=== PATIENT | female | born 1950 | race Caucasian/White ===

== ENCOUNTER → 2016-08-03 | Day surgery (SDC) | payer OTHER ==
[~2016-08-03] MED LIST: AMARYL4 M1 PO; ASPIRIN EC81 M1 PO; CLARITIN10 M1 PO; CRANBERRY400 M2; FLONASE ALLERG9.9 ML; GABAPENTIN300 M2 PO; HUMALOG100 UNIT/2; HYDROCHLOROTHIA25 M1 PO; JANUVIA100 M1 PO; LANTUS SOL100 UNIT/1 SC; LIPITOR80 M1 PO; LISINOPRIL40 M1 PO; MYRBETRIQ50 M1 PO; PLAVIX75 M1 PO; VITAMIN B-121000 MC3 PO
--- NOTE | 2016-08-03 15:36 | Operative Report ---
See Addendum Operative/Inv Procedure Report Surgery Date: 08/03/16 Name of Procedure: Excision skin malignancy face centimeters Full-thickness graft phase 25 cm Pre-Operative Diagnosis: bcc face Post-Operative Diagnosis: Same Estimated Blood Loss: less than 50ml, 50ml to 100ml Surgeon/Mini Shifter: DIDI HURD MD Anesthesia: moderate sedation Operative/Procedure Note Note: Visual skills risks of the procedure the alternatives risks and inspected our closure which to request surgical intervention to treat a basal cell carcinoma that has been neglected of the right has been neglected. He is proximally 4-5 cm in diameter. We talked about different visible scarring or possibly recurrence of infection bleeding pain and numbness need for additional surgeries based on final pathology reports will complete loss of the graft. Once room for consent was signed. Return to the operative supine on the table. Redundant placement anesthesia was given and once anesthesia was injected into the donor site of the right lateral neck site of excision. Full-thickness excision for approximate 6 cm and brought around the lesion
== END ==
LOC: STS 02:15
DX: C44.319 Basal cell carcinoma of skin of other parts of face (principal); E11.51 Type 2 diabetes mellitus with diabetic peripheral angiopathy without gangrene; Z79.4 Long term (current) use of insulin; Z89.421 Acquired absence of other right toe(s); I10 Essential (primary) hypertension; Z87.891 Personal history of nicotine dependence
CPT/HCPCS: 88305; J0690; J2250

== ENCOUNTER 2017-04-18 11:33 | Inpatient (IN) | payer OTHER ==
[~2017-04-18] VITALS: Ht 167.6 cm; Wt 86.2 kg
[~2017-04-18 11:33] MED LIST changes: -CRANBERRY400 M2; +CRANBERRY450 M2 PO; -FLONASE ALLERG9.9 ML; +FLONASE ALLERG9.9 ML NAS; -GABAPENTIN300 M2 PO; +GABAPENTIN600 M1 PO; -HUMALOG100 UNIT/2; +HUMALOG100 UNIT/2 SC
--- NOTE | 2017-04-18 11:44 | ED UPPER/LOWER EXTREMITY COMPL ---
History of Present Illness General Chief Complaint: General Adult Stated Complaint: BIBA INFECTION RT FOOT Source: patient Exam Limitations: no limitations Allergies Coded Allergies: No Known Allergies (08/02/16) PER PRE-OP ORDER SHEET. -CG 08/02/16 Reconcile Medications Aspirin (Ecotrin*) 81 MG TABLET.DR 1 TAB PO DAILY PVD (Reported) Atorvastatin Calcium (Lipitor) 80 MG TABLET 1 TAB PO DAILY CHOLESTEROL ( Reported) Clopidogrel Bisulfate (Plavix) 75 MG TABLET 1 TAB PO DAILY PVD (Reported) Cranberry Fruit (Cranberry) 450 MG TABLET 2 TAB PO BID SUPPLEMENT (Reported) Cyanocobalamin (Vitamin B-12) 1,000 MCG TABLET 1 TAB PO DAILY PROPHO ( Reported) Fluticasone Propionate (Flonase Allergy Relief) 50 MCG/ACTUATION SPRAY.SUSP 1 SPRAY KARI DAILY ALLERGIES (Reported) Gabapentin 600 MG TABLET 1 TAB PO TID NEUROPATHY (Reported) Hydrochlorothiazide 25 MG TABLET 1 TAB PO DAILY EDEMA (Reported) Insulin Lispro (Humalog) 100 UNIT/ML VIAL 10 UNIT SC TID DM II (Reported) Insulin-Lantus (Lantus) 100 UNIT/ML VIAL 43 U SC AT BEDTIME DM (Reported) Iron Carb,Gl/FA/B12/C/Docusate (Ferralet 90 Tablet) 90 MG-1 MG-12 MCG-120 MG-50 MG TABLET 1 TAB PO DAILY SUPPLEMENT (Reported) Lisinopril 40 MG TABLET 1 TAB PO DAILY HTN (Reported) Loratadine (Claritin) 10 MG TABLET 1 TAB PO DAILY ALLERGIES (Reported) Memantine HCl (Namenda) 10 MG TABLET 1 TAB PO QPM DEMENTIA (Reported) Mirabegron (Myrbetriq) 50 MG TAB.ER.24H 1 TAB PO DAILY BLADDER (Reported) Pantoprazole Sodium 20 MG TABLET.DR 1 TAB PO DAILY GI (Reported) Psyllium Husk (Metamucil) 3.4 GRAM/5.4 GRAM POWDER 1 PAC PO DAILY GI ( Reported) Saccharomyces Boulardii (Florastor) 250 MG CAPSULE 1 CAP PO DAILY GI ( Reported) Sitagliptin Phosphate (Januvia) 100 MG TABLET 1 TAB PO DAILY DM II (Reported) Tramadol HCl (Tramadol HCl ER) 100 MG TAB.ER.24H 1 TAB PO DAILY PAIN ( Reported) Triage Nurses Notes Reviewed? yes Onset: Gradual Severity: moderate Pain/Injury Location: Right: Foot. HPI: 66yo female with hx of DM, dementia, PAD, osteomyelitis BIBA from [facility] for further evaluation of right plantar foot wound. [facility] at [facility]. Patient recently on Vancomycin antibiotics for L extremity cellulitis. HPI is limited d/t patient's dementia. She cannot say why she came here to the hospital. At times patient is aware she is at [facility] however that time she cannot think of the name of her current location. Patient denies abdominal pain, vomiting, pain in lower extremities. She does report intermittent back pain. (Bea Auguste) Vital Signs & Intake/Output Vital Signs & Intake/Output Vital Signs Date Time Temp Pulse Resp B/P B/P Pulse O2 O2 Flow FiO2 Mean Ox Delivery Rate 04/19 1514 97.6 77 20 150/60 92 Room Air 04/19 0901 78 160/66 04/19 0728 99.5 78 18 160/66 96 Room Air 04/19 0215 99.0 90 20 142/70 95 Room Air 04/18 2300 73 140/62 04/18 2300 73 140/62 04/18 2249 98.8 75 19 140/62 93 Room Air 04/18 1912 99.5 85 18 140/60 95 Room Air ED Intake and Output 04/19 0000 04/18 1200 Intake Total 410 Output Total 350 Balance 60 Intake, IV 410 Intake, Oral 0 Number 0 Bowel Movements Output, Urine 350 Patient 190 lb 190 lb Weight Weight Estimated Estimated Measurement Method (Liat SUAREZ,Richard Byers) Past History Travel History Traveled to [place] past 21 day No Medical History Any Pertinent Medical History? see below for history Musculoskeletal: osteomyelitis Endocrine: diabetes Surgical History Surgical History: non-contributory Family History Hx Contributory? No (Bea Auguste) Review of Systems Review of Systems Constitutional: Reports: see HPI. EENTM: Reports: no symptoms. Respiratory: Reports: no symptoms. Cardiovascular: Reports: no symptoms. Gastrointestinal/Abdominal: Reports: no symptoms. Genitourinary: Reports: no symptoms. Musculoskeletal: Reports: see HPI. Skin: Reports: see HPI. Neurological/Psychological: Reports: see HPI. Hematologic/Endocrine: Reports: no symptoms. Immunological: Reports: no symptoms. All Other Systems: Reviewed and Negative (Bea Auguste) Physical Exam Physical Exam General Appearance: well developed/nourished, no apparent distress, alert, awake , obese Head: atraumatic, normal appearance Eyes: Bilateral: normal appearance. Ears, Nose, Throat: hearing grossly normal Neck: normal inspection, supple, full range of motion Cardiovascular/Respiratory: normal breath sounds, regular rate/rhythm, no respiratory distress Back: normal inspection, normal range of motion Leg Left: 3+ pitting edema with erythema to lower extermity Leg Right: 3+ pitting edema with erythema to lower extremity Knee Left: normal range of motion, normal inspection Knee Right: normal range of motion, normal inspection Foot Left: normal range of motion, swelling Foot Right: 3x3cm ulcer to plantar foot with surrounding erythema, nontender Neurologic/Tendon: normal motor functions, normal tendon functions Skin: see lower extremity exam above (Bhumi TORRES,Bea Benz) Progress Differential Diagnosis: cellulitis, DVT, fracture, septic arthritis, tendon injury, osteomyelitis Diagnostic Imaging: Viewed by Me: Radiology Read. Discussed w/RAD: Radiology Read. Radiology Impression: PATIENT: KHRIS ASHRAF PRESENT AGE: 66 PATIENT ACCOUNT NO: [id number] : 48 LOCATION: [facility] ORDERING PHYSICIAN: Bea TORRES SERVICE DATE: 04/18/17 EXAM TYPE: RAD - XRY-FOOT COMPLETE, R EXAMINATION: XR FOOT, RIGHT CLINICAL INFORMATION: Right plantar ulcer and delirium. Rule out osteomyelitis. COMPARISON: There are no prior studies for comparison. TECHNIQUE: AP, lateral, and oblique views of the right foot. FINDINGS: The soft tissue defect is noted in the plantar aspect of the midfoot at the level of the mid longitudinal plantar arch. Deep to the skin defect, there is cortical irregularity of the medial cuneiform. He adjacent metatarsals are unremarkable. There is absence of the distal aspect of the third digit from the metatarsal head distally.. Extensive generalized soft tissue swelling is present throughout the soft tissues of the right foot and ankle. IMPRESSION: Plantar soft tissue defect consistent with a plantar ulcer. Findings suspicious for associated osteomyelitis with irregularity of the cortical margin of the medial cuneiform. DICTATED BY: Livier Kwan MD DATE/TIME DICTATED:1419 ORDER PROCESSOR:CORY DATE/TIME TRANSCRIBED:04/18/171419 CONFIDENTIAL, DO NOT COPY WITHOUT APPROPRIATE AUTHORIZATION. <Electronically signed in Other Vendor System> SIGNED BY: Livier Kwan MD 04/18/17 142 CXR Impression: PATIENT: KHRIS ASHRAF PRESENT AGE: 66 PATIENT ACCOUNT NO: [id number] : 48 LOCATION: [facility] ORDERING PHYSICIAN: Bea TORRES SERVICE DATE: 04/18/17-1209 EXAM TYPE: RAD - XRY-CHEST XRAY, TWO VIEWS EXAMINATION: XR CHEST CLINICAL INFORMATION: Delirium. COMPARISON : There are no prior studies for comparison. TECHNIQUE: Frontal and lateral views of the chest were obtained. FINDINGS: The lungs are clear bilaterally. There is no evidence of pleural effusion or pneumothorax. The central pulmonary vasculature is prominent, suggestive of pulmonary vascular congestion. The cardiomediastinal silhouette is not enlarged. The bony structures and overlying soft tissues are unremarkable. IMPRESSION: No focal infiltrate, likely mild pulmonary vascular congestion. DICTATED BY: Livier Kwan MD DATE/TIME DICTATED:04/18/171418 ORDER PROCESSOR:CORY DATE/TIME TRANSCRIBED:1418 CONFIDENTIAL, DO NOT COPY WITHOUT APPROPRIATE AUTHORIZATION. < Electronically signed in Other Vendor System> SIGNED BY: Livier Kwan MD 04/18/171428 Initial ED EKG: sinus rhythm @84bpm, nonspecific ST changes (Bhumi TORRES,Bea Benz) Plan of Care: Orders Procedure Date/time Status Consistent Carbohydrate 1 04/20 B Active Consistent Carbohydrate 1 04/19 B Active MRI-RT FOOT W/O VILMA 04/19 1438 Active Castro, Insertion/Removal/Asses 04/19 1305 Complete Change service to 04/19 1211 Active Turn and Reposition 04/19 1115 Active Skin Integrity Protocol 04/19 1115 Active Skin/Pressure Ulcer Assess (Sk 04/19 1115 Active BLOOD CULTURE 04/19 1051 Active TOTAL IRON BINDING CAPACITY 04/19 0600 Complete PHOSPHORUS 04/19 0600 Complete MAGNESIUM 04/19 0600 Complete FERRITIN 04/19 0600 Complete SERUM IRON 04/19 0600 Complete CBC WITHOUT DIFFERENTIAL 04/19 0600 Complete CALCIUM 04/19 0600 Complete BASIC ELECTROLYTES PLUS BUN&CR 04/19 0600 Complete VANCOMYCIN (VANCOCIN) LEVEL 04/19 0440 Complete Vital Signs 04/19 0132 Active Teach/Educate 04/19 013 Active Pain Treatment and Response 04/19 013 Active Nutritional Intake, Monitor 04/19 131 Active Isolation 04/19 013 Active Intake & Output 04/19 013 Active Patient Care Conference 04/19 013 Active Activity/Ambulation 04/19 013 Active Lab Add-on Test 04/19 UNK Active PHYSICIAN CONSULT 04/19 UNK Active Lab Add-on Test 04/18 1857 Active Pathway - chart 04/18 1724 Active House Staff 04/18 1724 Active Patient Data 04/18 1724 Active Code Status 04/18 1724 Active EXTREMETIES OR SPEC 04/18 1654 Active ED Holding Orders 04/18 1624 Active Code Status 04/18 1624 Complete VANCOMYCIN (VANCOCIN) LEVEL 04/18 1441 Complete URINE LYTES, SPOT 04/18 1320 Complete Intake & Output 04/18 1243 Active Misc Message 04/18 UNK Active Admit to inpatient 04/18 UNK Active VTE Mechanical Prophylaxis 04/18 UNK Active Vital Signs 04/18 UNK Active FingerStick- Glucose 04/18 UNK Active Current Medications Sig/Terese Start time Last Medication Dose Stop Time Status Admin Insulin Human Regular 0 Q6 04/19 2359 CAN (NovoLIN R) Dextrose/Sodium 1,000 ML Q20H 04/19 2200 CAN Chloride (D5W-1/2 Normal Saline 1000ML) Insulin Detemir 18 UNITS BID 04/19 2200 AC (Levemir) Atorvastatin Calcium 80 MG 1700 04/19 1700 AC (Lipitor) Lisinopril 20 MG DAILY 04/19 1422 AC (Prinivil) Acetaminophen 650 MG Q4P PRN 04/19 1400 AC 04/19 (Tylenol) 1359 Hydrocodone Bitart/ 1 TAB Q6P PRN 04/19 1400 AC Acetaminophen (Vicodin) Aspirin 81 MG DAILY 04/19 1132 AC 04/19 (Aspirin) 1340 Clopidogrel Bisulfate 75 MG DAILY 04/19 1132 AC 04/19 (Plavix) 1340 Fluticasone 2 SPRAY DAILY 04/19 1000 AC 04/19 Propionate 0904 (Flonase) Vancomycin HCl 1,000 MG DAILY 04/19 1000 CAN Dextrose/Water 250 ML (D5W) Insulin Aspart 0 TIDAC 04/19 0800 AC 04/19 (NovoLOG) 1226 Omeprazole 20 MG DAILY AC 04/19 0700 AC 04/19 (Prilosec) 0608 Heparin Sodium 5,000 UNIT Q8 04/18 2199 AC 04/19 (Porcine) 1340 Memantine 10 MG QPM 04/18 2199 AC 04/18 (Namenda) 2259 Laboratory Tests 04/19/17 0440: Anion Gap 9, Estimated GFR 21 L, BUN/Creatinine Ratio 15.2, Calcium 8.6, Phosphorus 4.1, Magnesium 1.7, Iron 19 L, TIBC 241 L, Ferritin 157.0, CBC w Diff NO MAN DIFF REQ, RBC 2.99 L, MCV 83.2, MCH 26.9 L, MCHC 32.3 L, RDW 15.7 H, MPV 8.3, Gran % 78.5 H, Lymphocytes % 10.9 L, Monocytes % 7.5, Eosinophils % 2.7, Basophils % 0.4, Absolute Granulocytes 5.3, Absolute Lymphocytes 0.7 L, Absolute Monocytes 0.5, Absolute Eosinophils 0.2, Absolute Basophils 0, Random Vancomycin 20.5 Microbiology 04/19 0835 BLOOD: Blood Culture - RECD 04/18 1644 EXTREMITIE: Gross Specimen Examination - RES GRAM NEGATIVE RODS 04/18 1644 EXTREMITIE: Gram Stain - RES 3:23 PM - Sopke with Dr. Pham regarding this patient. He recommends holding antibiotics for bone biopsy/cultures in OR tonight. Given patient's other comorbidities he recommends general medicine admission to hospitalist team if possible. Patient has stable vital signs, she is in no acute distress. Dr. Josue discussed this patient with hospitalist Dr. Morrison regarding her general medicine admission for osteomyelitis (Bhumi TORRES,Bea Benz) Comments: 04/18/2017 4:24:36 PM patient's case discussed with me by BRIAN. Apparently patient was sent in by Dr. Luz for an evaluation of possible osteomyelitis of the foot. Prior to full medical evaluation in the emergency department the patient was taken to the OR for surgery. Per Dr. Luz the patient was to be admitted to the medical service. BRIAN AL has discussed this case with Dr. Brumfield who recommends that the patient be admitted to the medical service once she is out of the OR. Hospitalist construction grip at that time should be contacted. (Liat SUAREZ,Richard Byers) Departure Departure Disposition: STILL A PATIENT Condition: Stable Clinical Impression Primary Impression: Osteomyelitis Qualifiers: Osteomyelitis type: unspecified type Osteomyelitis location: foot Laterality: right Qualified Code: M86.9 - Osteomyelitis, unspecified Referrals: Patient Has No Primary Care Dr (PCP/Family) Departure Forms: Customer Survey General Discharge Information Admission Note Spoke With: Hayden Brumfield MD Documentation of Exam: Documentation of any treatments & extenuating circumstances including Concerns Regarding Discharge (functional status, medication knowledge or non-compliance, living conditions, etc.) that warrant an admission rather than observation: [ Osteomyelitis of right foot requiring biopsy and culture in OR with podiatry, IV antibiotics, follow-up with cultures, repeat labs, premature discharge would be medically unsafe] (Bhumi TORRES,Bea Benz) PA/MACHINED PARTS QUALITY INSPECTOR Co-Sign Statement Statement: ED Attending supervision documentation- [X] I saw and evaluated the patient. I have also reviewed all the pertinent lab results and diagnostic results. I agree with the findings and the plan of care as documented in the PA's/MACHINED PARTS QUALITY INSPECTOR's documentation. [] I have reviewed the ED Record and agree with the PA's/MACHINED PARTS QUALITY INSPECTOR's documentation. [] Additions or exceptions (if any) to the PAs/MACHINED PARTS QUALITY INSPECTOR's note and plan are summarized below: [] (Liat SUAREZ,Richard Byers)
[2017-04-18] MEDS ORDERED: PANTOPRAZOLE SO20 M1 PO (11:57)
[2017-04-18] MEDS ORDERED: FLORASTOR250 M1 PO (11:58)
[2017-04-18] MEDS ORDERED: FERRALET 90 TA1 EACH PO (12:00)
[2017-04-18] MEDS ORDERED: METAMUCIL660 GM PO (12:02)
[2017-04-18] MEDS ORDERED: NAMENDA10 M2 PO (12:05)
[2017-04-18] MEDS ORDERED: TRAMADOL HCL E100 MG PO (12:06)
--- NOTE | 2017-04-18 14:27 | RADIOLOGY REPORT ---
EXAMINATION: XR FOOT, RIGHT CLINICAL INFORMATION: Right plantar ulcer and delirium. Rule out osteomyelitis. COMPARISON: There are no prior studies for comparison. TECHNIQUE: AP, lateral, and oblique views of the right foot. FINDINGS: The soft tissue defect is noted in the plantar aspect of the midfoot at the level of the mid longitudinal plantar arch. Deep to the skin defect, there is cortical irregularity of the medial cuneiform. He adjacent metatarsals are unremarkable. There is absence of the distal aspect of the third digit from the metatarsal head distally.. Extensive generalized soft tissue swelling is present throughout the soft tissues of the right foot and ankle. IMPRESSION: Plantar soft tissue defect consistent with a plantar ulcer. Findings suspicious for associated osteomyelitis with irregularity of the cortical margin of the medial cuneiform.
--- NOTE | 2017-04-18 14:28 | RADIOLOGY REPORT ---
EXAMINATION: XR HUMERUS, RIGHT CLINICAL INFORMATION: PICC line placement assessment. COMPARISON: There are no prior studies. TECHNIQUE: AP views of the right humerus. FINDINGS: The bony structures are unremarkable. A PICC line is present extending along the margin of the right axilla and across the upper chest.. IMPRESSION: No acute bony findings. PICC line appears to be generally in anatomic position.
--- NOTE | 2017-04-18 14:29 | RADIOLOGY REPORT ---
EXAMINATION: XR CHEST CLINICAL INFORMATION: Delirium. COMPARISON: There are no prior studies for comparison. TECHNIQUE: Frontal and lateral views of the chest were obtained. FINDINGS: The lungs are clear bilaterally. There is no evidence of pleural effusion or pneumothorax. The central pulmonary vasculature is prominent, suggestive of pulmonary vascular congestion. The cardiomediastinal silhouette is not enlarged. The bony structures and overlying soft tissues are unremarkable. IMPRESSION: No focal infiltrate, likely mild pulmonary vascular congestion.
[2017-04-18 15:03] LABS: ABSOLUTE BASOPHIL COUNT 0.1 /CUMM (0.0-0.2); ABSOLUTE EOSINOPHIL COUNT 0.2 /CUMM (0.0-0.7); ABSOLUTE GRANULOCYTE CT 6.3 /CUMM (1.4-6.5); ABSOLUTE LYMPH COUNT 0.8 /CUMM (1.2-3.4); ABSOLUTE MONOCYTE COUNT 0.6 /CUMM (0.10-0.60); BASOPHIL % 1.4 % (0.0-2.0); EOSINOPHIL % 2.4 % (0-5); GRANULOCYTE % 78.5 % (42.2-75.2); HEMATOCRIT 27.4 % (37-47); MEAN CORPUSCULAR HGB CONC 32.6 G/DL (33.0-37.0); MEAN PLATELET VOLUME 8.3 FL (7.4-10.4); PLATELET COUNT 266 /CUMM (130-400); RBC DISTRIBUTION WIDTH 15.6 % (11.5-14.5); WHITE BLOOD CELL COUNT 8.1 /CUMM (4.8-10.8)
--- NOTE | 2017-04-18 15:29 | History & Physical Pre-Op ---
General Information and HPI MD Statement: I have seen and personally examined KHRIS ASHRAF and documented this H&P. The patient is a 66 year old F who presented with a patient stated chief complaint of painful infected ulceration in the plantar right midfoot[]. Source of Information: patient, Chelsy Camera, HCP Exam Limitations: unable to give history, confusion, dementia, poor historian History of Present Illness: This is a 66-year-old female with dementia who initially presented to my office in [place] this morning after being transported from an [facility] facility this morning for consultation on infected plantar midfoot wound on the right foot. The patient was accompanied by nursing professor, as well as some paperwork detailing her medications in recent history. She recently had a positive MRSA culture in this wound and was placed on intravenous vancomycin 1 g per day since then with very little improvement. The aide reported to me that she had had fevers intermittently for the past several days. The patient was examined, and found clinically to have clear and obvious Charcot neuroarthropathy of the right foot with midfoot collapse, large plantar ulceration, and multiple signs and symptoms of moderate to severe infection, and was referred to the emergency room immediately thereafter for further workup and treatment. The patient was transported from our office to [facility]'s emergency room via EMS. Given recently failed intravenous antibiotic therapy and multiple signs of necrotic tissue in the ulceration itself, the patient is being recommended for urgent debridement of this wound. Preoperative diagnosis: Charcot neuroarthropathy with plantar midfoot ulceration with associated necrotizing soft tissue infection as well as rule out osteomyelitis of the medial cuneiform, right foot. Planned procedure: Excisional debridement of all nonviable skin and soft tissue and bone of right foot Planned anesthesia: Monitored anesthesia care combined with an ankle block of 0.5% Marcaine plain Planned hemostasis: None Allergies/Medications Allergies: Coded Allergies: No Known Allergies (08/02/16) PER PRE-OP ORDER SHEET. -CG 08/02/16 Home Med list Aspirin (Ecotrin*) 81 MG TABLET.DR 1 TAB PO DAILY PVD (Reported) Atorvastatin Calcium (Lipitor) 80 MG TABLET 1 TAB PO DAILY CHOLESTEROL ( Reported) Clopidogrel Bisulfate (Plavix) 75 MG TABLET 1 TAB PO DAILY PVD (Reported) Cranberry Fruit (Cranberry) 450 MG TABLET 2 TAB PO BID SUPPLEMENT (Reported) Cyanocobalamin (Vitamin B-12) 1,000 MCG TABLET 1 TAB PO DAILY PROPHO ( Reported) Fluticasone Propionate (Flonase Allergy Relief) 50 MCG/ACTUATION SPRAY.SUSP 1 SPRAY KARI DAILY ALLERGIES (Reported) Gabapentin 600 MG TABLET 1 TAB PO TID NEUROPATHY (Reported) Hydrochlorothiazide 25 MG TABLET 1 TAB PO DAILY EDEMA (Reported) Insulin Lispro (Humalog) 100 UNIT/ML VIAL 10 UNIT SC TID DM II (Reported) Iron Carb,Gl/FA/B12/C/Docusate (Ferralet 90 Tablet) 90 MG-1 MG-12 MCG-120 MG-50 MG TABLET 1 TAB PO DAILY SUPPLEMENT (Reported) Lisinopril 40 MG TABLET 1 TAB PO DAILY HTN (Reported) Loratadine (Claritin) 10 MG TABLET 1 TAB PO DAILY ALLERGIES (Reported) Memantine HCl (Namenda) 10 MG TABLET 1 TAB PO QPM DEMENTIA (Reported) Mirabegron (Myrbetriq) 50 MG TAB.ER.24H 1 TAB PO DAILY BLADDER (Reported) Pantoprazole Sodium 20 MG TABLET.DR 1 TAB PO DAILY GI (Reported) Psyllium Husk (Metamucil) 3.4 GRAM/5.4 GRAM POWDER 1 PAC PO DAILY GI ( Reported) Saccharomyces Boulardii (Florastor) 250 MG CAPSULE 1 CAP PO DAILY GI ( Reported) Sitagliptin Phosphate (Januvia) 100 MG TABLET 1 TAB PO DAILY DM II (Reported) Tramadol HCl (Tramadol HCl ER) 100 MG TAB.ER.24H 1 TAB PO DAILY PAIN ( Reported) Compliance With Home Meds: GOOD Past History Medical History Neurological: dementia Cardiovascular: PAD DISTAL AORTIC ANGIO PSA STENT VALVAR CARCINOMA Renal: urinary incontinence Musculoskeletal: OSTEOMYELITIS CELLULITIS Psychiatric: anxiety, depression Endocrine: diabetes Surgical History Pertinent Surgical History: non-contributory Past Family/Social History Family History Relations & Conditions if any Family history was reviewed; no changes noted. Review of Systems Review of Systems: The patient is confused and unable to give a full review of systems upon my asking. The patient had reported that the right foot is in pain. Patient also reported that she had felt sick on and off for the past several days while at the senior care prior to seeing me. Exam & Diagnostic Data Last 24 Hrs of Vital Signs/I&O Vital Signs Date Time Temp Pulse Resp B/P B/P Pulse O2 O2 Flow FiO2 Mean Ox Delivery Rate 04/18 1409 97.9 84 18 187/77 98 Room Air 04/18 1142 97.9 86 18 178/74 98 Room Air Intake & Output 04/18 1600 04/18 0800 04/18 0000 Intake Total 0 Output Total Balance 0 Intake, Oral 0 Patient 190 lb Weight Weight Estimated Measurement Method Physical Exam: Focused physical exam The patient has weakly palpable pedal pulses bilaterally, and this is muffled by +3 nonpitting edema equal and bilateral with significant venous stasis dermatitis equal and bilateral of the tib-fib segment of the leg. Patient has a lack of hair growth dorsal and bilateral, atrophic skin dorsal and bilateral, capillary refill time is 3 seconds in all 9 of her remaining toes. The patient is status post left hallux agitation that is closed and healed, but there is a plantar ulceration measuring about 6 mm in diameter underneath the first metatarsal head. This has a fibrogranular base, hyperkeratotic rim, but no clinical signs of infection. The right foot has a significant mid tarsal joint collapse and Charcot neuroarthropathy deformity. There is a 7 cm x 6 cm x 1 cm necrotic, draining, malodorous plantar midfoot wound at the level of the midtarsal joint. There is also a 4 cm ovoid bulla over the posterior right heel. The surrounding skin on both of these lesions is macerated and there is significant focal edema and erythema about the midfoot circumferentially. The patient is insensate on gross exam, but on deep palpation of the plantar right mid foot on the patient does report that it is painful. Last 24 Hrs of Labs/Braulio: Laboratory Tests 04/18/17 1441: Sodium Pending, Potassium Pending, Chloride Pending, Carbon Dioxide Pending, Anion Gap Pending, BUN Pending, Creatinine Pending, BUN/Creatinine Ratio Pending , Glucose Pending, Lactic Acid Pending, Calcium Pending, Total Bilirubin Pending , AST Pending, ALT Pending, Alkaline Phosphatase Pending, Total Protein Pending, Albumin Pending, Globulin Pending, Albumin/Globulin Ratio Pending, CBC w Diff NO MAN DIFF REQ, RBC 3.30 L, MCV 83.0, MCH 27.0, MCHC 32.6 L, RDW 15.6 H, MPV 8.3, Gran % 78.5 H, Lymphocytes % 10.4 L, Monocytes % 7.3, Eosinophils % 2.4, Basophils % 1.4, Absolute Granulocytes 6.3, Absolute Lymphocytes 0.8 L, Absolute Monocytes 0.6, Absolute Eosinophils 0.2, Absolute Basophils 0.1 04/18/17 1320: Urine Color YEL, Urine Clarity CLDY H, Urine pH 6.0, Ur Specific [place] 1.020, Urine Protein TRACE H, Urine Ketones NEG, Urine Nitrite POS H, Urine Bilirubin NEG, Urine Urobilinogen 0.2, Ur Leukocyte Esterase LARGE H, Ur Microscopic SEDIMENT EXAMINED, Urine RBC RARE, Urine WBC > 75 H, Urine Bacteria FEW H, Micro UA Comment BUDDING YEAST H, Urine Hemoglobin MOD H, Urine Glucose NEG Microbiology 04/18 1444 BLOOD: Blood Culture - RECD 04/18 1320 URINE ROUT: Urine Culture - RECD 04/18 1238 NASOPHARYN: Influenza Virus A & B Rapid Smear - COMP 04/18 1209 BLOOD: Blood Culture - ORD Assessment/Plan Assessment/Plan: 66-year-old female with Charcot neuroarthropathy of the right foot, subacute necrotizing soft tissue infection of the right foot in the form of an infected plantar mid foot ulceration r/o osteomyelitis right medial cuneiform bone, and a small superficial neuropathic lesion on the left foot that is noninfected. The plan is as follows: The patient was seen and evaluated at bedside in the emergency room after being admitted to the internal medicine service. The patient's radiographs were evaluated and reviewed, and I agree with the findings. Given the patient's recent fevers, and the clinical and radiographic appearance of the midfoot, it is my recommendation the patient was taken for prompt debridement of this wound both to remove devitalized and necrotic tissue thereby stabilizing the patient's systemic reaction, and to biopsy these tissues for further diagnosis. I am recommending an infectious disease consult on this case. I'm recommending an endocrinology consult on this case. I'm recommending a CRP be drawn in the emergency room, and I recommended a patient have an A1c drawn to determined glycemic control, as this has a direct impact on my surgical outcome. The patient will be made nonweightbearing until further notice as the Charcot neuroarthropathy has made her right foot unstable to ambulate upon. The patient will be placed on empirical IV antibiotic therapy per the primary team. If the patient has a C-reactive protein over 15, I would also recommend clindamycin as a protein synthesis inhibitor. I explained all of the risks and benefits of the procedure to the patient's healthcare proxy, Chelsy Borja over the phone at the number [phone] as well as to the patient herself as best I could, and made no guarantees about their outcome. They are aware that we are removing necrotic tissue in the wound as a means of stabilizing her systemically, and that we are likely to have to perform multiple procedures during the admission to complete cleaning the infection out. They are aware that we are performing surgery on the patient in the presence of failed IV antibiotic therapy prior to admission at her senior care. I will follow up on the patient daily until she is discharged. As Ranked By This Provider Problem List: 1. Osteomyelitis
--- NOTE | 2017-04-18 17:03 | Operative Report ---
Operative/Inv Procedure Report Surgery Date: 04/18/17 Name of Procedure: Excisional debridement of all nonviable skin and soft tissue, right midfoot. Blunt removal of devitalized tissue from a stage II decubitus lesion of the right heel. Pre-Operative Diagnosis: Infected Charcot midfoot ulcer, right foot, rule out osteomyelitis. Stage II decubitus lesion right heel. Post-Operative Diagnosis: Infected Charcot midfoot ulcer, right foot, rule out osteomyelitis. Stage II decubitus lesion right heel. Estimated Blood Loss: scant Surgeon/Web Manager: Nickolas Uribe DPM Anesthesia: local monitored anesthesi Specimens: Soft tissue specimen sent for pathology to rule out necrotizing infection. Soft tissue culture and sensitivity, right foot. Microbiology: Soft tissue specimen, right midfoot Tourniquet: None Complications: None Condition: Stable Operative Indication: The patient presented to my office this morning with an infected midfoot ulcer with a substantial amount of necrotic tissue superficially in both changes proximal to this at the heel. The patient was taken for prompt debridement after failed IV antibiotic therapy at the custodial where she was currently residing and to rule out deeper involvement of the infection and/or spread through connective tissues and soft tissue planes. Operative/Procedure Note Note: After the patient was prepped and draped in usual sterile manner with Betadine from the distal tips of the toes pass the right ankle, attention was directed to the plantar aspect of the right midfoot where a 3.3 cm x 3 cm x 1.5 cm necrotic, malodorous, draining, boggy ulceration was found at the level of the midtarsal joints within the lateral column of the foot. Excisional debridement was carried out on this lesion down to deep fascia, but no bone was exposed. Once a uniform capillary oozing base was achieved, a crosshatch technique was used with a fresh #15 blade. The midfoot wound was then irrigated with 3 L of a combination of normal saline and triple antibiotic solution. Attention was then directed to the posterior right heel where a 3.5 cm x 3.1 cm bullous stage II decubitus lesion was identified. Using blunt technique the bullous changes were deroofed, and a stable base of dermis tissue was found. The midfoot wound was packed with half-inch iodoform packing and a wet-to-dry dressing using ample gauze, Kerlix, an EBD pads. The heel wound was dressed with a Betadine soaked gauze, multiple ABD pads, was incorporated into the Kerlix roll gauze area both were wrapped in a gentle 4 inch Rohit bandage. The patient was escorted to the postanesthesia care unit in no apparent distress, vital signs stable, neurovascular status intact to the operative foot. The patient is going to be admitted to the internal medicine team for multiple other comorbidities, including a UTI and a necrotic decubitus lesion of the left buttock that was discovered by the nursing team during survey. With optimized cultures taken, the patient may begin on IV empirical therapy. The dressing is to remain intact, the patient is to remain nonweightbearing at all times until further notice.
--- NOTE | 2017-04-18 17:17 | History & Physical ---
Johan Bhatia MD 04/18/17 1606: General Information and HPI MD Statement: I have seen and personally examined KHRIS ASHRAF and documented this H&P. The patient is a 66 year old F who presented with a patient stated chief complaint of right foot infection. Source of Information: patient, Chelsy Camera, HCP Exam Limitations: unable to give history, confusion, dementia, poor historian History of Present Illness: 66 year old female with past medical history significant for h/o vulvar carcinoma, depression/anxiety, diabetes, and h/o osteomyelitis, severe peripheral vascular disease with left foot cellulitis and right foot third digit amputation is being admitted for suspected osteomyelitis. The patient was taken to the operating room urgently after being sent in for suspected osteomyelitis and necrosis of a right plantar foot wound. Cultures were previously positive for MRSA according to obtained records and patient has been on intravenous vancomycin 1gram q24 hours. On initial evaluation in the ED, the patient was afebrile without leukocytosis. The patient was taken to the operating room emergently for debridement because the patient was noted to have spreading right foot infection with Charcot midfoot, and fevers despite intravenous antibiotics. The case was done under local with MAC on propofol infusion 125mcg/kg/min 150mg total, 700cc LR, and 0.6mg IV dilaudid given in PACU at the time of evaluation. Necrotic tissues and soft tissue culture sent to the lab. Allergies/Medications Allergies: Coded Allergies: No Known Allergies (08/02/16) PER PRE-OP ORDER SHEET. -CG 08/02/16 Compliance With Home Meds: GOOD Past History Travel History Traveled to [place] past 21 day No Medical History Neurological: dementia Cardiovascular: PAD DISTAL AORTIC ANGIO PSA STENT VALVAR CARCINOMA Renal: urinary incontinence Musculoskeletal: OSTEOMYELITIS CELLULITIS Psychiatric: anxiety, depression Endocrine: diabetes Surgical History Surgical History: non-contributory Review of Systems Review of Systems Constitutional: Reports: no symptoms. EENTM: Reports: no symptoms. Cardiovascular: Reports: edema, peripheral edema. Denies: chest pain, palpitations. Respiratory: Denies: cough, short of breath. GI: Reports: no symptoms. Genitourinary: Reports: no symptoms. Musculoskeletal: Reports: no symptoms. Skin: Reports: erythema. Neurological/Psychological: Reports: no symptoms. Hematologic/Endocrine: Reports: no symptoms. Immunologic/Allergic: Reports: no symptoms. All Other Systems: Reviewed and Negative Exam & Diagnostic Data Last 24 Hrs of Vital Signs/I&O Vital Signs Date Time Temp Pulse Resp B/P B/P Pulse O2 O2 Flow FiO2 Mean Ox Delivery Rate 04/18 1409 97.9 84 18 187/77 98 Room Air 04/18 1142 97.9 86 18 178/74 98 Room Air Intake & Output 04/18 1600 04/18 0800 04/18 0000 Intake Total 0 Output Total Balance 0 Intake, Oral 0 Patient 86.183 kg Weight Weight Estimated Measurement Method Physical Exam General Appearance Alert, Cooperative, No Acute Distress, oriented to self only, mild cognitive slowing, post anesthesia? Cardiovascular Regular Rate, Normal S1, Normal S2, No Murmurs Lungs Clear to Auscultation, Normal Air Movement Abdomen Normal Bowel Sounds, Soft, No Tenderness, No Masses, obese, + hwang Extremities significant bilateral edema with erythema, post surgical dressing not taken down Last 24 Hrs of Labs/Braulio: Laboratory Tests 04/18/17 1509: Lactic Acid Cancelled 04/18/17 1441: Anion Gap 13, Estimated GFR 21 L, BUN/Creatinine Ratio 16.1, Glucose 174 H, Lactic Acid 0.8, Calcium 9.2, Total Bilirubin 0.3, AST 15, ALT 14, Alkaline Phosphatase 81, Total Protein 6.3, Albumin 3.2 L, Globulin 3.1, Albumin/ Globulin Ratio 1.0 L, CBC w Diff NO MAN DIFF REQ, RBC 3.30 L, MCV 83.0, MCH 27.0, MCHC 32.6 L, RDW 15.6 H, MPV 8.3, Gran % 78.5 H, Lymphocytes % 10.4 L, Monocytes % 7.3, Eosinophils % 2.4, Basophils % 1.4, Absolute Granulocytes 6.3, Absolute Lymphocytes 0.8 L, Absolute Monocytes 0.6, Absolute Eosinophils 0.2, Absolute Basophils 0.1, Random Vancomycin 24.8 04/18/17 1320: Urine Color YEL, Urine Clarity CLDY H, Urine pH 6.0, Ur Specific [place] 1.020, Urine Protein TRACE H, Urine Ketones NEG, Urine Nitrite POS H, Urine Bilirubin NEG, Urine Urobilinogen 0.2, Ur Leukocyte Esterase LARGE H, Ur Microscopic SEDIMENT EXAMINED, Urine RBC RARE, Urine WBC > 75 H, Urine Bacteria FEW H, Micro UA Comment [place] H, Urine Hemoglobin MOD H, Urine Glucose NEG Microbiology 04/18 1645 EXTREMITIE: Gross Specimen Examination - RECD 04/18 1645 EXTREMITIE: Gram Stain - RECD 04/18 1444 BLOOD: Blood Culture - RECD 04/18 1320 URINE ROUT: Urine Culture - RECD 04/18 1238 NASOPHARYN: Influenza Virus A & B Rapid Smear - COMP 04/18 1209 BLOOD: Blood Culture - ORD Diagnostic Data EKG Results sinus rhythm, no ischemic ST T wave changes CXR Results Right PICC, no acute cardiopulmonary process Other Results right foot x-ray soft tissue defect is noted in the plantar aspect of the midfoot at the level of the mid longitudinal plantar arch. Deep to the skin defect, there is cortical irregularity of the medial cuneiform. Assessment/Plan Assessment: 66 year old female with past medical history significant for h/o vulvar carcinoma, depression/anxiety, diabetes, and h/o osteomyelitis, severe peripheral vascular disease with left foot cellulitis and right foot third digit amputation is being admitted for suspected osteomyelitis and emergent wound debridement. Osteomyelitis: Afebrile without leukocytosis on arrival s/p debridement in the operating room previously on vancomycin 1gram q24 hours Check random vancomycin level Follow up cultures Follow up podiatry recommendations Consider infectious disease consultation in the morning Nonweightbearing, right heel ulcer DM: Accuchecks TIDAC/HS Novolog sliding scale insulin Levemir 18 units BID, was previously on 43 units lantus qhs HTN: Hold HCTZ and ACEi for now with renal insufficiency Will start norvasc 5mg and hydralazine as needed until more history obtained Renal insufficiency-unclear if BHAVIN vs CKD PSA stent/PVD: Pseudoaneurysm stent? uncertain patient's vascular surgery history Currently aspirin and plavix on hold, pending discussion of anticoagulation with podiatry Continue high dose statin therapy Gluteal decubitus ulcer: Wound care consultation Dementia: Continue namenda Confused and cognitive slowing noted after anesthesia Hold narcotics, tramadol, and gabapentin for now Diabetic diet DVT ppx-heparin 5000units subcutaneous Full code As Ranked By This Provider Problem List: 1. Osteomyelitis Core Measures/Misc (11/11) Acute Coronary Syndrome ACS Diagnosis: No Congestive Heart Failure Congestive Heart Failure Diagnosis No Cerebrovascular Accident CVA/TIA Diagnosis: No VTE (View Protocol) VTE Risk Factors Age>40 No Mechanical VTE Prophylaxis d/t Physical Contraindication No VTE Pharm Prophylaxis d/t NA PharmProphylax ordered Sepsis (View protocol) Sepsis Present: Kel Cisneros MDdavidpaul 04/18/17 1738: Attending MD Review Statement Attending Statement Attending MD Statement: examined this patient, discuss w/resident/PA/ADMINISTRATIVE JOB TITLES, agreed w/resident/PA/ADMINISTRATIVE JOB TITLES, reviewed EMR data (avail), discussed with nursing, amended to note Attending Assessment/Plan: No detailed records were present with the patient. She is not the best of historians. Patient is a 66-year-old female with medical history significant for insulin-dependent diabetes mellitus, hypertension, vulvar cancer, admission for sepsis in the past, Charcot's foot, peripheral vascular disease, history of diarrhea. Currently a resident a [facility] facility. She was recently admitted to [facility]. She was discharged to the [facility] facility with a PICC line on IV vancomycin. Patient was sent from the facility to the podiatry office for evaluation. Apparently of the facility she had worsening of her right foot ulceration. She was evaluated by Dr. Thomas of the plastic surgery service while at the facility. Due to nonimprovement she was sent to the podiatry office today. She was sent from the podiatry office to the emergency room for further evaluation and was promptly taken to the OR for wound debridement. X-ray preoperatively showed plantar soft tissue deficit consistent with a plantar ulcer and findings suspicious of associated osteomyelitis on the medial aspect of the foot. The podiatry reports that debridement was done primarily on the lateral aspect and no evidence of infected bone was noted intraoperative. She did have extensive evidence of Charcot foot. I did evaluate the patient postoperatively in the postanesthesia care unit. I found her alert and oriented 3. Conversant appropriately. Not in any acute distress. She was afebrile and hemodynamically stable. She had no jugular venous distention. Heart sounds are regular. Lungs are clear to auscultation bilaterally. She had no abdominal tenderness. Bowel sounds are normal. She had bilateral lower extremity swelling. She had a Rohit wrap and overboard feet. According to the human resources coordinator she had a 3 x 3 cm ulceration on the plantar aspect of the right foot. On the left foot she has small superficial ulceration. Also per the human resources coordinator in the OR she was noted to have a left decubitus ulceration. Problems: 1. Osteomyelitis of the right foot; query chronicity with superimposed necrotic soft tissue. 2. Diabetes mellitus. 3. Hypertension. 4. Decubitus ulcer. 5. Peripheral arterial disease. 6. Anemia 7. Renal Insufficency: ? Chronicity Plan: -Admit to inpatient General medical service. -Continue antibiotic therapy with IV vancomycin. -Obtain records from [facility] to determine if patient had positive blood or bone cultures. Patient is currently afebrile, hemodynamically stable with no leukocytosis. I would strongly recommend holding off any new antibiotics for now pending records from [facility] and evaluation by the ID service for antibiotic stewardship. -Place on insulin. Currently there is no indication for obtaining an endocrinology consultation unless her blood glucose extremely difficult to control while here in the hospital. Again I would recommend evaluating her records from [facility]. -Monitor hemoglobin levels daily. She does follow-up with the gastroenterology service at [facility]. -DVT prophylaxis with heparin subcu. Lizbeth SUAREZ,[employer] 04/18/17 6829: General Information and HPI Allergies/Medications Home Med list Aspirin (Ecotrin*) 81 MG TABLET.DR 1 TAB PO DAILY PVD (Reported) Atorvastatin Calcium (Lipitor) 80 MG TABLET 1 TAB PO DAILY CHOLESTEROL ( Reported) Clopidogrel Bisulfate (Plavix) 75 MG TABLET 1 TAB PO DAILY PVD (Reported) Cranberry Fruit (Cranberry) 450 MG TABLET 2 TAB PO BID SUPPLEMENT (Reported) Cyanocobalamin (Vitamin B-12) 1,000 MCG TABLET 1 TAB PO DAILY PROPHO ( Reported) Fluticasone Propionate (Flonase Allergy Relief) 50 MCG/ACTUATION SPRAY.SUSP 1 SPRAY KARI DAILY ALLERGIES (Reported) Gabapentin 600 MG TABLET 1 TAB PO TID NEUROPATHY (Reported) Hydrochlorothiazide 25 MG TABLET 1 TAB PO DAILY EDEMA (Reported) Insulin Lispro (Humalog) 100 UNIT/ML VIAL 10 UNIT SC TID DM II (Reported) Insulin-Lantus (Lantus) 100 UNIT/ML VIAL 43 U SC AT BEDTIME DM (Reported) Iron Carb,Gl/FA/B12/C/Docusate (Ferralet 90 Tablet) 90 MG-1 MG-12 MCG-120 MG-50 MG TABLET 1 TAB PO DAILY SUPPLEMENT (Reported) Lisinopril 40 MG TABLET 1 TAB PO DAILY HTN (Reported) Loratadine (Claritin) 10 MG TABLET 1 TAB PO DAILY ALLERGIES (Reported) Memantine HCl (Namenda) 10 MG TABLET 1 TAB PO QPM DEMENTIA (Reported) Mirabegron (Myrbetriq) 50 MG TAB.ER.24H 1 TAB PO DAILY BLADDER (Reported) Pantoprazole Sodium 20 MG TABLET.DR 1 TAB PO DAILY GI (Reported) Psyllium Husk (Metamucil) 3.4 GRAM/5.4 GRAM POWDER 1 PAC PO DAILY GI ( Reported) Saccharomyces Boulardii (Florastor) 250 MG CAPSULE 1 CAP PO DAILY GI ( Reported) Sitagliptin Phosphate (Januvia) 100 MG TABLET 1 TAB PO DAILY DM II (Reported) Tramadol HCl (Tramadol HCl ER) 100 MG TAB.ER.24H 1 TAB PO DAILY PAIN ( Reported) Resident Review Statement Resident Statement: examined this patient, discussed with production internship, agreed with production internship Other Findings: 66 year old female with extensive PMH including but not limited to diabetes, osteomyelitis, severe peripheral vascular disease with left foot cellulitis and right foot third digit amputation is being admitted for suspected osteomyelitis. The patient was sent to the OR room from ER for suspected osteomyelitis and necrosis. She had a history of culture positive for MRSA for which she was on intravenous vancomycin 1gram q24 hours. Given that the patient did not improve and continued to have intermittent fever while on IV antibiotic she was send urgently to the ED. On initial evaluation in the ED, the patient was afebrile without leukocytosis. Necrotic tissues and soft tissue culture sent to the lab. Assessment and plan The patient was found to have a dirty urine, however she denies any urinary symptoms. The patient was found to have elevated creatinine, it's not clear if this is BHAVIN or CKD. The patient is status post debridement and soft tissue culture. The patient will most likely require another I&D within the next 2 days as per podiatry. #Suspected osteomyelitis failing outpatient IV vancomycin * We will admit to general medicine floor * We repeat vancomycin level given the limited creatinine, those Vanco accordingly. * Pain management as necessary * We will follow podiatry recommendation * We we will consult infectious disease in the morning #Mild confusion post procedure * Most likely related to the anesthesia * We will hold AMALGAMATOR depressant medication * We will reassess in the morning #Elevated creatinine * It's not clear if this is BHAVIN or CKD * We will hold lisinopril and all nephrotoxic medications * We'll repeat vancomycin level * Patient received 1 bag of fluid, we will repeat BEP in the morning and reassess need for fluid #Decubitus ulcer. * We will consult wound in the morning #Diabetes mellitus, Hypertension, PAD * We will start diabetic diet * We will start insulin sliding scale * We will hold lisinopril and hydrochlorothiazide * We will manage blood pressure with amlodipine or hydralazine as necessary * We'll continue the rest of home medication except nephrotoxic medications * We will start aspirin and Plavix in the morning Diabetic diet DVT PPX with pharmacological Full code
[2017-04-18 19:12] VITALS: BP 140/60
[2017-04-18] MEDS ORDERED: LANTUS100 UNIT/1 SC (22:32)
[2017-04-18 22:49] VITALS: BP 140/62
[2017-04-19 02:15] VITALS: BP 142/70
[2017-04-19 05:24] LABS: ABSOLUTE BASOPHIL COUNT 0 /CUMM (0.0-0.2); ABSOLUTE EOSINOPHIL COUNT 0.2 /CUMM (0.0-0.7); ABSOLUTE GRANULOCYTE CT 5.3 /CUMM (1.4-6.5); ABSOLUTE LYMPH COUNT 0.7 /CUMM (1.2-3.4); ABSOLUTE MONOCYTE COUNT 0.5 /CUMM (0.10-0.60); BASOPHIL % 0.4 % (0.0-2.0); EOSINOPHIL % 2.7 % (0-5); GRANULOCYTE % 78.5 % (42.2-75.2); HEMATOCRIT 24.9 % (37-47); MEAN CORPUSCULAR HGB 26.9 PG (27.0-31.0); MEAN CORPUSCULAR HGB CONC 32.3 G/DL (33.0-37.0); MEAN CORPUSCULAR VOLUME 83.2 FL (81.0-99.0); MEAN PLATELET VOLUME 8.3 FL (7.4-10.4); PLATELET COUNT 236 /CUMM (130-400); RBC DISTRIBUTION WIDTH 15.7 % (11.5-14.5); RED BLOOD CELL CT 2.99 /CUMM (4.20-5.40); WHITE BLOOD CELL COUNT 6.7 /CUMM (4.8-10.8)
--- NOTE | 2017-04-19 07:25 | PN- Housestaff ---
Johan Bhatia MD 04/19/17 0725: Subjective Follow-up For: Wound infection Subjective: patient remains oriented only to self afebrile, complaining of mild bilateral foot pain, worse with dressing changes +GNR in OR culture Review of Systems Constitutional: Reports: see HPI. Objective Last 24 Hrs of Vital Signs/I&O Vital Signs Date Time Temp Pulse Resp B/P B/P Pulse O2 O2 Flow FiO2 Mean Ox Delivery Rate 04/19 1514 97.6 77 20 150/60 92 Room Air 04/19 0901 78 160/66 04/19 0728 99.5 78 18 160/66 96 Room Air 04/19 0215 99.0 90 20 142/70 95 Room Air 04/18 2300 73 140/62 04/18 2300 73 140/62 04/18 2249 98.8 75 19 140/62 93 Room Air 04/18 1912 99.5 85 18 140/60 95 Room Air Intake & Output 04/19 1600 04/19 0800 04/19 0000 Intake Total 410 410 Output Total 980 1999 350 Balance -980 -1590 60 Intake, IV 300 410 Intake, Oral 110 0 Number 1 0 Bowel Movements Output, Urine 980 1999 350 Patient 86.2 kg Weight Weight Estimated Measurement Method Physical Exam General Appearance: Alert, Cooperative, No Acute Distress Cardiovascular: Regular Rate, Normal S1, Normal S2, No Murmurs Lungs: Clear to Auscultation, Normal Air Movement Abdomen: Normal Bowel Sounds, Soft, No Tenderness, No Masses, +hwang, Extremities: No Clubbing, No Cyanosis, +bilateral lower extremity edema and cellulitis, and foot ulcers, left gluteal ulcer Current Medications: Current Medications Sig/Terese Start time Last Medication Dose Route Stop Time Status Admin Acetaminophen 650 MG Q4P PRN 04/19 1400 AC 04/19 PO 1359 Acetaminophen 650 MG ONCE ONE 04/19 0500 DC 04/19 PO 04/19 0501 0452 Amlodipine Besylate 5 MG DAILY 04/18 2105 DC 04/19 PO 0901 Aspirin 81 MG DAILY 04/19 1132 AC 04/19 PO 1340 Atorvastatin Calcium 80 MG 1700 04/19 1700 AC 04/19 PO 1649 Clopidogrel Bisulfate 75 MG DAILY 04/19 1132 AC 04/19 PO 1340 Dextrose/Sodium 1,000 ML Q20H 04/19 2200 CAN Chloride IV Fluticasone 2 SPRAY DAILY 04/19 1000 AC 04/19 Propionate KARI 0904 Heparin Sodium 5,000 UNIT Q8 04/18 2200 AC 04/19 (Porcine) SC 1340 Hydralazine HCl 25 MG ONCE ONE 04/18 2114 DC 04/18 PO 04/18 2115 2300 Hydrocodone Bitart/ 1 TAB Q6P PRN 04/19 1400 AC Acetaminophen PO Insulin Aspart 0 TIDAC 04/19 0800 AC 04/19 SC 1651 Insulin Detemir 18 UNITS BID 04/19 2200 AC SC Insulin Detemir 18 UNITS BID 04/18 220 DC 04/19 SC 0925 Insulin Human Regular 0 Q6 04/19 2359 CAN SC Lactated Ringer's 1,000 ML Q10H 04/18 2114 DC 04/18 IV 04/19 0714 2114 Lisinopril 20 MG DAILY 04/19 1422 AC 04/19 PO 1649 Lisinopril 20 MG DAILY 04/18 2049 DC PO Memantine 10 MG QPM 04/18 2199 AC 04/18 PO 2259 Omeprazole 20 MG DAILY AC 04/19 0700 AC 04/19 PO 0608 Vancomycin HCl 1,000 MG DAILY 04/19 1000 CAN Dextrose/Water 250 ML IV Last 24 Hrs of Lab/Braulio Results Last 24 Hrs of Labs/Mics: Laboratory Tests 04/19/17 0440: Anion Gap 9, Estimated GFR 21 L, BUN/Creatinine Ratio 15.2, Calcium 8.6, Phosphorus 4.1, Magnesium 1.7, Iron 19 L, TIBC 241 L, Ferritin 157.0, CBC w Diff NO MAN DIFF REQ, RBC 2.99 L, MCV 83.2, MCH 26.9 L, MCHC 32.3 L, RDW 15.7 H, MPV 8.3, Gran % 78.5 H, Lymphocytes % 10.9 L, Monocytes % 7.5, Eosinophils % 2.7, Basophils % 0.4, Absolute Granulocytes 5.3, Absolute Lymphocytes 0.7 L, Absolute Monocytes 0.5, Absolute Eosinophils 0.2, Absolute Basophils 0, Random Vancomycin 20.5 Microbiology 04/19 0835 BLOOD: Blood Culture - RECD Assessment/Plan Assessment: 66 year old female with past medical history significant for h/o vulvar carcinoma, depression/anxiety, diabetes, and h/o osteomyelitis, severe peripheral vascular disease with left foot cellulitis and right foot third digit amputation is being admitted for suspected osteomyelitis and emergent wound debridement. Osteomyelitis: Afebrile without leukocytosis on arrival s/p debridement in the operating room previously on vancomycin 1gram q24 hours, Random vancomycin >20 held for now Cultures +GNR Follow up podiatry recommendations, plan for repeat debridement, possible bone biopsy for osteomyelitis Infectious disease consultation, appreciating recommendations, monitoring off antibiotics Nonweightbearing, right heel ulcer Restarted tylenol and vicodin for analgesia prn DM: Accuchecks TIDAC/HS Novolog sliding scale insulin Levemir 18 units BID, was previously on 43 units lantus qhs HTN: Hold HCTZ and ACEi for now with renal insufficiency Can restart ACEi, FeNA high likely chronic renal disease Renal insufficiency-unclear if BHAVIN vs CKD Records pending from [place], faxed request form PSA stent/PVD: Pseudoaneurysm stent? uncertain patient's vascular surgery history Continue aspirin/plavix, discussed with podiatry, ok with further debridement on DAPT Continue high dose statin therapy Gluteal decubitus ulcer: Wound care consultation Dementia: Continue namenda Confused and cognitive slowing noted after anesthesia Hold narcotics, tramadol, and gabapentin for now Diabetic diet DVT ppx-heparin 5000units subcutaneous Full code Problem List: 1. Osteomyelitis Pain Ratin Pain Location: bilateral feet Pain Goal: Pain 4 or less Pain Plan: prn Tomorrow's Labs & Rationales: cbc, bep Jerome SUAREZ,[facility] 04/19/17 1602: Attending MD Review Statement Attending Statement Attending MD Statement: examined this patient, discuss w/resident/PA/CONFERENCE SERVICES MANAGER, agreed w/resident/PA/CONFERENCE SERVICES MANAGER, reviewed EMR data (avail) Attending Assessment/Plan: 66F PMH depression/anxiety, diabetes, and h/o osteomyelitis, severe peripheral vascular disease with left foot cellulitis and right foot third digit amputation is being admitted for suspected osteomyelitis, went to OR on 04/18 for debridement, now doing well and hemodynamically stable with normal WBC and afebrile. Plan - Continue on general medicine - Follow ID and podiatry recommendations - Off antibiotics for now - Follow cultures - Will return to OR on 04/23 - Continue home medications - DVT PPx
[2017-04-19 07:28] VITALS: BP 160/66
--- NOTE | 2017-04-19 14:34 | Cons- Infect Disease ---
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 On admission she was afebrile. Laboratory data revealed a white blood cell count of 8000, BUN/creatinine 37 and 2.3, with normal liver enzymes. A Vancomycin random level was 25. Urinalysis greater than 75 WBCs, with budding yeast. Chest x-ray was negative. X-ray of the right foot revealed a plantar soft tissue defect with irregularity of the cortical margin of the medial cuneiform suggestive of osteomyelitis. She was taken to the OR for an excisional debridement of all nonviable skin and soft tissue of the right midfoot, with no bone exposed, and blunt removal of devitalized tissue from a stage II right heel ulcer. She was followed off antibiotics and has remained afebrile. At present she does note some discomfort in both lower extremities. Allergies/Medications Allergies: Coded Allergies: No Known Allergies (08/02/16) PER PRE-OP ORDER SHEET. - 08/02/16 Home Med List: Aspirin (Ecotrin*) 81 MG TABLET.DR 1 TAB PO DAILY PVD (Reported) Atorvastatin Calcium (Lipitor) 80 MG TABLET 1 TAB PO DAILY CHOLESTEROL ( Reported) Clopidogrel Bisulfate (Plavix) 75 MG TABLET 1 TAB PO DAILY PVD (Reported) Cranberry Fruit (Cranberry) 450 MG TABLET 2 TAB PO BID SUPPLEMENT (Reported) Cyanocobalamin (Vitamin B-12) 1,000 MCG TABLET 1 TAB PO DAILY PROPHO ( Reported) Fluticasone Propionate (Flonase Allergy Relief) 50 MCG/ACTUATION SPRAY.SUSP 1 SPRAY KARI DAILY ALLERGIES (Reported) Gabapentin 600 MG TABLET 1 TAB PO TID NEUROPATHY (Reported) Hydrochlorothiazide 25 MG TABLET 1 TAB PO DAILY EDEMA (Reported) Insulin Lispro (Humalog) 100 UNIT/ML VIAL 10 UNIT SC TID DM II (Reported) Insulin-Lantus (Lantus) 100 UNIT/ML VIAL 43 U SC AT BEDTIME DM (Reported) Iron Carb,Gl/FA/B12/C/Docusate (Ferralet 90 Tablet) 90 MG-1 MG-12 MCG-120 MG-50 MG TABLET 1 TAB PO DAILY SUPPLEMENT (Reported) Lisinopril 40 MG TABLET 1 TAB PO DAILY HTN (Reported) Loratadine (Claritin) 10 MG TABLET 1 TAB PO DAILY ALLERGIES (Reported) Memantine HCl (Namenda) 10 MG TABLET 1 TAB PO QPM DEMENTIA (Reported) Mirabegron (Myrbetriq) 50 MG TAB.ER.24H 1 TAB PO DAILY BLADDER (Reported) Pantoprazole Sodium 20 MG TABLET.DR 1 TAB PO DAILY GI (Reported) Psyllium Husk (Metamucil) 3.4 GRAM/5.4 GRAM POWDER 1 PAC PO DAILY GI ( Reported) Saccharomyces Boulardii (Florastor) 250 MG CAPSULE 1 CAP PO DAILY GI ( Reported) Sitagliptin Phosphate (Januvia) 100 MG TABLET 1 TAB PO DAILY DM II (Reported) Tramadol HCl (Tramadol HCl ER) 100 MG TAB.ER.24H 1 TAB PO DAILY PAIN ( Reported) Past History Travel History Traveled to [place] past 21 day No Medical History Neurological: dementia Cardiovascular: PAD DISTAL AORTIC ANGIO PSA STENT Renal: urinary incontinence Psychiatric: anxiety, depression Endocrine: diabetes Cancer(s): vulvar carcinoma History of MRSA: Yes History of VRE: No History of CDIFF: No Isolation History: Contact Surgical History Surgical History: non-contributory Psychosocial History Where [facility] You Live[facility] Smoking Status: Unknown If Ever Smoked Review of Systems Review of Systems All Other Systems: Reviewed and Negative Exam & Diagnostic Data Last 24 Hrs of Vital Signs/I&O Vital Signs Date Time Temp Pulse Resp B/P B/P Pulse O2 O2 Flow FiO2 Mean Ox Delivery Rate 04/19 0901 78 160/66 04/19 0728 99.5 78 18 160/66 96 Room Air 04/19 0215 99.0 90 20 142/70 95 Room Air 04/18 2300 73 140/62 04/18 2300 73 140/62 04/18 2249 98.8 75 19 140/62 93 Room Air 04/18 1912 99.5 85 18 140/60 95 Room Air Intake & Output 04/19 1600 04/19 0800 04/19 0000 Intake Total 410 410 Output Total 2000 350 Balance -1590 60 Intake, IV 300 410 Intake, Oral 110 0 Number 0 Bowel Movements Output, Urine 2000 350 Patient 190 lb Weight Weight Estimated Measurement Method Physical Exam Other Physical Findings: Afebrile. She is awake and alert, confused and disoriented, but in no acute distress. Skin reveals no rash. HEENT negative. Neck is supple with no adenopathy. Lungs are clear. Heart regular rhythm with no murmur. Abdomen is obese, soft, nontender with positive bowel sounds; suprapubic area with marked induration. Back no CVA tenderness; perirectal ulcerations. Extremities right foot wound clean, with no necrosis or surrounding erythema; bilateral lower extremity edema and erythema, with minimal tenderness on palpation; status post amputation of the left first and second toes and the right third toe; pulses decreased bilaterally; PICC in the right upper extremity with no inflammation at the site. Neuro is without focality. Castro catheter is in place, with perivaginal ulceration. Last 24 Hours of Lab Results: Laboratory Tests 04/19 04/18 0440 1509 Chemistry Sodium (137 - 145 mmol/L) 141 Potassium (3.5 - 5.1 mmol/L) 3.9 Chloride (98 - 107 mmol/L) 101 Carbon Dioxide (22 - 30 mmol/L) 31 H Anion Gap (5 - 16) 9 BUN (7 - 17 mg/dL) 35 H Creatinine (0.5 - 1.0 mg/dL) 2.3 H Estimated GFR (>60 ml/min) 21 L BUN/Creatinine Ratio (7 - 25 %) 15.2 Lactic Acid Cancelled Calcium (8.4 - 10.2 mg/dL) 8.6 Phosphorus (2.5 - 4.5 mg/dL) 4.1 Magnesium (1.6 - 2.3 mg/dL) 1.7 Iron (37 - 170 ug/dL) 19 L TIBC (265 - 497 ug/dL) 241 L Ferritin (11.1 - 264 ng/mL) 157.0 Hematology CBC w Diff NO MAN DIFF REQ WBC (4.8 - 10.8 /CUMM) 6.7 RBC (4.20 - 5.40 /CUMM) 2.99 L Hgb (12.0 - 16.0 G/DL) 8.1 L Hct (37 - 47 %) 24.9 L MCV (81.0 - 99.0 FL) 83.2 MCH (27.0 - 31.0 PG) 26.9 L MCHC (33.0 - 37.0 G/DL) 32.3 L RDW (11.5 - 14.5 %) 15.7 H Plt Count (130 - 400 /CUMM) 236 MPV (7.4 - 10.4 FL) 8.3 Gran % (42.2 - 75.2 %) 78.5 H Lymphocytes % (20.5 - 51.1 %) 10.9 L Monocytes % (1.7 - 9.3 %) 7.5 Eosinophils % (0 - 5 %) 2.7 Basophils % (0.0 - 2.0 %) 0.4 Absolute Granulocytes (1.4 - 6.5 /CUMM) 5.3 Absolute Lymphocytes (1.2 - 3.4 /CUMM) 0.7 L Absolute Monocytes (0.10 - 0.60 /CUMM) 0.5 Absolute Eosinophils (0.0 - 0.7 /CUMM) 0.2 Absolute Basophils (0.0 - 0.2 /CUMM) 0 04/18 1441 Chemistry Sodium (137 - 145 mmol/L) 142 Potassium (3.5 - 5.1 mmol/L) 4.1 Chloride (98 - 107 mmol/L) 99 Carbon Dioxide (22 - 30 mmol/L) 30 Anion Gap (5 - 16) 13 BUN (7 - 17 mg/dL) 37 H Creatinine (0.5 - 1.0 mg/dL) 2.3 H Estimated GFR (>60 ml/min) 21 L BUN/Creatinine Ratio (7 - 25 %) 16.1 Glucose (65 - 99 mg/dL) 174 H Lactic Acid (0.7 - 2.1 mmol/L) 0.8 Calcium (8.4 - 10.2 mg/dL) 9.2 Total Bilirubin (0.2 - 1.3 mg/dL) 0.3 AST (14 - 36 U/L) 15 ALT (9 - 52 U/L) 14 Alkaline Phosphatase (<127 U/L) 81 Total Protein (6.3 - 8.2 g/dL) 6.3 Albumin (3.5 - 5.0 g/dL) 3.2 L Globulin (1.9 - 4.2 gm/dL) 3.1 Albumin/Globulin Ratio (1.1 - 2.2 %) 1.0 L Hematology CBC w Diff NO MAN DIFF REQ WBC (4.8 - 10.8 /CUMM) 8.1 RBC (4.20 - 5.40 /CUMM) 3.30 L Hgb (12.0 - 16.0 G/DL) 8.9 L Hct (37 - 47 %) 27.4 L MCV (81.0 - 99.0 FL) 83.0 MCH (27.0 - 31.0 PG) 27.0 MCHC (33.0 - 37.0 G/DL) 32.6 L RDW (11.5 - 14.5 %) 15.6 H Plt Count (130 - 400 /CUMM) 266 MPV (7.4 - 10.4 FL) 8.3 Gran % (42.2 - 75.2 %) 78.5 H Lymphocytes % (20.5 - 51.1 %) 10.4 L Monocytes % (1.7 - 9.3 %) 7.3 Eosinophils % (0 - 5 %) 2.4 Basophils % (0.0 - 2.0 %) 1.4 Absolute Granulocytes (1.4 - 6.5 /CUMM) 6.3 Absolute Lymphocytes (1.2 - 3.4 /CUMM) 0.8 L Absolute Monocytes (0.10 - 0.60 /CUMM) 0.6 Absolute Eosinophils (0.0 - 0.7 /CUMM) 0.2 Absolute Basophils (0.0 - 0.2 /CUMM) 0.1 Toxicology Random Vancomycin (ug/ml) 24.8 Last 24 Hours of Braulio Results: Blood cultures April 18 negative Urine culture April 18 negative Rapid flu swab April 18 negative OR culture labeled soft tissue right foot April 18 positive for gram-positive cocci and gram-negative rods Diagnostic Data Recent Imaging Findings: Chest x-ray negative. X-ray of the right foot revealed a plantar soft tissue defect with irregularity of the cortical margin of the medial cuneiform suggestive of osteomyelitis. Assessment/Plan Assessment/Plan Impression: This is a 66-year-old woman with a history of dementia, diabetes and peripheral vascular disease, with a right foot plantar ulcer of unknown duration, recently begun on Vancomycin for a positive wound culture for MRSA, with no further details available, admitted on April 18 for debridement of the soft tissues of the right mid foot and right heel, which was performed on the day of admission, with no evidence for bone exposure, and with temperatures and white blood cell count normal. The possibility of underlying osteomyelitis of the right foot must be considered. There was no bone exposed in the OR and the findings on x-ray of irregularity of the cortical margin of the medial cuneiform apparently do not correspond to the findings in the OR. Nevertheless, given the history of a nonhealing ulcer, the possibility of bone involvement must be considered. She is felt by Podiatry to have a Charcot foot, which could mimic osteomyelitis on x -ray and MRI; therefore she would likely require a bone biopsy if the diagnosis of osteomyelitis is to be pursued. As she is stable, with temperatures and white blood cell count normal, feel that she can be followed off antibiotics pending further evaluation. The erythema and edema of both lower extremities appear to be chronic and likely secondary to venous stasis disease. No previous labs are available; therefore it is not clear if her renal insufficiency is new or old. Her pyuria is noted, and suspect her urine culture may grow yeast but, with no urinary symptoms, she should not require treatment for this. Suggestion: 1. Obtain further information regarding her recent hospitalization at [facility] 2. Consider MRI of the right foot (though, as noted, this may not distinguish osteomyelitis from a Charcot foot) 3. Remove Castro catheter 4. Would consider bone biopsy of the right foot once she has been off antibiotics for at least 72 hours 5. Further evaluation/management of her renal failure per Medicine 6. Local wound care for her perineal ulcerations 7. Continue to follow off antibiotics pending above Jenny Green MD will be covering until April 29 Consult Acknowledgment - Thank you for your consult request.
--- NOTE | 2017-04-19 14:58 | PN- Podiatry ---
Subjective Subjective: This is a 66-year-old female who is seen and evaluated postoperative day 1 urgent debridement of right midfoot for an infected Charcot ulceration. The patient is seen and evaluated in no apparent distress, afebrile, vital signs stable, capillary refill intact to all 5 digits on the operative foot. Review of Systems: A 14 point review of systems was performed, and was found to be negative apart from the patient's complaints described above in the history of present illness. Objective Vital Signs and I&Os Vital Signs Date Time Temp Pulse Resp B/P B/P Pulse O2 O2 Flow FiO2 Mean Ox Delivery Rate 04/19 0901 78 160/66 04/19 0728 99.5 78 18 160/66 96 Room Air 04/19 0215 99.0 90 20 142/70 95 Room Air 04/18 2300 73 140/62 04/18 2300 73 140/62 04/18 2249 98.8 75 19 140/62 93 Room Air 04/18 1912 99.5 85 18 140/60 95 Room Air Intake & Output 04/19 1600 04/19 0800 04/19 0000 04/18 1600 04/18 0800 04/18 0000 Intake Total 410 410 0 Output Total 1999 350 Balance -1590 60 0 Intake, IV 300 410 Intake, Oral 110 0 0 Number 1 0 Bowel Movements Output, Urine 1999 350 Patient 190 lb 190 lb Weight Weight Estimated Estimated Measurement Method Physical Exam: The surgical dressing is clean dry and intact with no strikethrough. Left foot dressing is c/d/i with no strikethrough. Current Medications: Current Medications Sig/Terese Start time Last Medication Dose Route Stop Time Status Admin Acetaminophen 650 MG Q4P PRN 04/19 1400 AC 04/19 PO 1359 Acetaminophen 650 MG ONCE ONE 04/19 0500 DC 04/19 PO 04/19 0501 0452 Acetaminophen 0 .STK-MED ONE 04/18 1509 DC IV Amlodipine Besylate 5 MG DAILY 04/18 2105 DC 04/19 PO 0901 Aspirin 81 MG DAILY 04/19 1132 AC 04/19 PO 1340 Atorvastatin Calcium 80 MG 1700 04/19 1700 AC PO Clopidogrel Bisulfate 75 MG DAILY 04/19 1132 AC 04/19 PO 1340 Dextrose/Sodium 1,000 ML Q20H 04/19 2200 CAN Chloride IV Fluticasone 2 SPRAY DAILY 04/19 1000 AC 04/19 Propionate KARI 0904 Heparin Sodium 5,000 UNIT Q8 04/18 2199 AC 04/19 (Porcine) SC 1340 Hydralazine HCl 25 MG ONCE ONE 04/18 2114 DC 04/18 PO 04/18 2115 230 Hydrocodone Bitart/ 1 TAB Q6P PRN 04/19 1400 AC Acetaminophen PO Insulin Aspart 0 TIDAC 04/19 0800 AC 04/19 SC 1226 Insulin Detemir 18 UNITS BID 04/19 2199 AC SC Insulin Detemir 18 UNITS BID 04/18 2199 DC 04/19 SC 0925 Insulin Human Regular 0 Q6 04/19 2359 CAN SC Lactated Ringer's 1,000 ML Q10H 04/18 2114 DC 04/18 IV 04/19 0714 2114 Lisinopril 20 MG DAILY 04/19 1422 AC PO Lisinopril 20 MG DAILY 04/18 2049 DC PO Memantine 10 MG QPM 04/18 2199 AC 04/18 PO 2259 Omeprazole 20 MG DAILY AC 04/19 0700 AC 04/19 PO 0608 Vancomycin HCl 1,000 MG DAILY 04/19 1000 CAN Dextrose/Water 250 ML IV Results Last 48 Hours of Labs: Laboratory Tests 04/19 04/18 0440 1509 Chemistry Sodium (137 - 145 mmol/L) 141 Potassium (3.5 - 5.1 mmol/L) 3.9 Chloride (98 - 107 mmol/L) 101 Carbon Dioxide (22 - 30 mmol/L) 31 H Anion Gap (5 - 16) 9 BUN (7 - 17 mg/dL) 35 H Creatinine (0.5 - 1.0 mg/dL) 2.3 H Estimated GFR (>60 ml/min) 21 L BUN/Creatinine Ratio (7 - 25 %) 15.2 Lactic Acid Cancelled Calcium (8.4 - 10.2 mg/dL) 8.6 Phosphorus (2.5 - 4.5 mg/dL) 4.1 Magnesium (1.6 - 2.3 mg/dL) 1.7 Iron (37 - 170 ug/dL) 19 L TIBC (265 - 497 ug/dL) 241 L Ferritin (11.1 - 264 ng/mL) 157.0 Hematology CBC w Diff NO MAN DIFF REQ WBC (4.8 - 10.8 /CUMM) 6.7 RBC (4.20 - 5.40 /CUMM) 2.99 L Hgb (12.0 - 16.0 G/DL) 8.1 L Hct (37 - 47 %) 24.9 L MCV (81.0 - 99.0 FL) 83.2 MCH (27.0 - 31.0 PG) 26.9 L MCHC (33.0 - 37.0 G/DL) 32.3 L RDW (11.5 - 14.5 %) 15.7 H Plt Count (130 - 400 /CUMM) 236 MPV (7.4 - 10.4 FL) 8.3 Gran % (42.2 - 75.2 %) 78.5 H Lymphocytes % (20.5 - 51.1 %) 10.9 L Monocytes % (1.7 - 9.3 %) 7.5 Eosinophils % (0 - 5 %) 2.7 Basophils % (0.0 - 2.0 %) 0.4 Absolute Granulocytes (1.4 - 6.5 /CUMM) 5.3 Absolute Lymphocytes (1.2 - 3.4 /CUMM) 0.7 L Absolute Monocytes (0.10 - 0.60 /CUMM) 0.5 Absolute Eosinophils (0.0 - 0.7 /CUMM) 0.2 Absolute Basophils (0.0 - 0.2 /CUMM) 0 Toxicology Random Vancomycin (ug/ml) 20.5 04/18 04/18 1441 1320 Chemistry Sodium (137 - 145 mmol/L) 142 Potassium (3.5 - 5.1 mmol/L) 4.1 Chloride (98 - 107 mmol/L) 99 Carbon Dioxide (22 - 30 mmol/L) 30 Anion Gap (5 - 16) 13 BUN (7 - 17 mg/dL) 37 H Creatinine (0.5 - 1.0 mg/dL) 2.3 H Estimated GFR (>60 ml/min) 21 L BUN/Creatinine Ratio (7 - 25 %) 16.1 Glucose (65 - 99 mg/dL) 174 H Lactic Acid (0.7 - 2.1 mmol/L) 0.8 Calcium (8.4 - 10.2 mg/dL) 9.2 Total Bilirubin (0.2 - 1.3 mg/dL) 0.3 AST (14 - 36 U/L) 15 ALT (9 - 52 U/L) 14 Alkaline Phosphatase (<127 U/L) 81 Total Protein (6.3 - 8.2 g/dL) 6.3 Albumin (3.5 - 5.0 g/dL) 3.2 L Globulin (1.9 - 4.2 gm/dL) 3.1 Albumin/Globulin Ratio (1.1 - 2.2 %) 1.0 L Hematology CBC w Diff NO MAN DIFF REQ WBC (4.8 - 10.8 /CUMM) 8.1 RBC (4.20 - 5.40 /CUMM) 3.30 L Hgb (12.0 - 16.0 G/DL) 8.9 L Hct (37 - 47 %) 27.4 L MCV (81.0 - 99.0 FL) 83.0 MCH (27.0 - 31.0 PG) 27.0 MCHC (33.0 - 37.0 G/DL) 32.6 L RDW (11.5 - 14.5 %) 15.6 H Plt Count (130 - 400 /CUMM) 266 MPV (7.4 - 10.4 FL) 8.3 Gran % (42.2 - 75.2 %) 78.5 H Lymphocytes % (20.5 - 51.1 %) 10.4 L Monocytes % (1.7 - 9.3 %) 7.3 Eosinophils % (0 - 5 %) 2.4 Basophils % (0.0 - 2.0 %) 1.4 Absolute Granulocytes (1.4 - 6.5 /CUMM) 6.3 Absolute Lymphocytes (1.2 - 3.4 /CUMM) 0.8 L Absolute Monocytes (0.10 - 0.60 /CUMM) 0.6 Absolute Eosinophils (0.0 - 0.7 /CUMM) 0.2 Absolute Basophils (0.0 - 0.2 /CUMM) 0.1 Toxicology Random Vancomycin (ug/ml) 24.8 Urines Urine Color (YEL,AMB,STR) YEL Urine Clarity (CLEAR) CLDY H Urine pH (5.0 - 8.0) 6.0 Ur Specific [place] (1.001 - 1.035) 1.020 Urine Protein (NEG,<30 MG/DL) TRACE H Urine Ketones (NEG) NEG Urine Nitrite (NEG) POS H Urine Bilirubin (NEG) NEG Urine Urobilinogen (0.1 - 1.0 EU/dl) 0.2 Ur Leukocyte Esterase (NEG) LARGE H Ur Microscopic SEDIMENT EXAMINED Urine RBC (0 - 5 /HPF) RARE Urine WBC (0 - 2 /HPF) > 75 H Urine Bacteria (NEG/NONE) FEW H Micro UA Comment BUDDING YEAST H Urine Hemoglobin (NEG) MOD H Urine Glucose (N MG/DL) NEG 04/18 1320 Urines Ur Random Creatinine (mg/dL) 62.3 Ur Random Sodium (30 - 90 mmol/L) 86 Ur Random Potassium (mmol/L) 24.0 Fraction Sodium Excret (<1% %) 2.3 H Assessment/Plan Assessment/Plan 66-year-old female with Charcot neuroarthropathy of the right foot with mid tarsal joint collapse, and a large infected plantar ulceration of the lateral column, also with a small superficial neuropathic ulceration underneath the first metatarsal head of the left foot. The patient was seen and evaluated at bedside. The case was discussed with Alexis Hernandez MD. We agreed to monitor the patient off antibiotics over the weekend, mostly to differentiate acute inflammation from Charcot neuroarthropathy versus active acute infection of the wound. If the patient continues to improve over the weekend off of antibiotics, we will treat as acute Charcot neuroarthropathy and maintain nonweightbearing strictly for a period of 12-16 weeks while continuing local wound care. Today's dressing change will be conducted by the nursing team. Radiographs reviewed, I believe the cortical irregularities in the midtarsal area are predominantly from acute Charcot neuroarthropathy as they are clinically of the other side of the foot from the ulceration, and the ulceration itself does not probe to bone. Soft tissue cultures and biopsies were taken during the initial procedure and their preliminary reports of been reviewed. We will return the patient to the operating room Saturday to begin negative pressure wound therapy and further cursory debridement. I have attempted to reach the patient's healthcare proxy earlier this afternoon, and I await her response to update her on today's developments. I'm available for further discussion on the case at [phone].
[2017-04-19 15:14] VITALS: BP 150/60
[2017-04-19 22:53] VITALS: BP 138/70
[2017-04-20 07:29] VITALS: BP 160/70
[2017-04-20 08:22] LABS: ABSOLUTE BASOPHIL COUNT 0 /CUMM (0.0-0.2); ABSOLUTE EOSINOPHIL COUNT 0.2 /CUMM (0.0-0.7); ABSOLUTE GRANULOCYTE CT 3.7 /CUMM (1.4-6.5); ABSOLUTE LYMPH COUNT 0.9 /CUMM (1.2-3.4); ABSOLUTE MONOCYTE COUNT 0.4 /CUMM (0.10-0.60); BASOPHIL % 0.3 % (0.0-2.0); EOSINOPHIL % 3.1 % (0-5); GRANULOCYTE % 71.6 % (42.2-75.2); HEMATOCRIT 23.1 % (37-47); MEAN CORPUSCULAR HGB 27.3 PG (27.0-31.0); MEAN CORPUSCULAR VOLUME 82.7 FL (81.0-99.0); MEAN PLATELET VOLUME 8.9 FL (7.4-10.4); PLATELET COUNT 222 /CUMM (130-400); RBC DISTRIBUTION WIDTH 14.8 % (11.5-14.5); RED BLOOD CELL CT 2.79 /CUMM (4.20-5.40); WHITE BLOOD CELL COUNT 5.1 /CUMM (4.8-10.8)
--- NOTE | 2017-04-20 11:04 | PN- Housestaff ---
See Addendum Subjective Follow-up For: Osteomylitis Subjective: No overnight events. Foot is hurting a bit, no other complaints. Review of Systems Constitutional: Reports: no symptoms. EENTM: Reports: no symptoms. Cardiovascular: Reports: no symptoms. Respiratory: Reports: no symptoms. Gastrointestinal: Reports: no symptoms. Genitourinary: Reports: no symptoms. Musculoskeletal: Reports: see HPI. Skin: Reports: no symptoms. Neurological/Psychological: Reports: no symptoms. Hematologic/Endocrine: Reports: no symptoms. Immunologic/Allergic: Reports: no symptoms. Objective Last 24 Hrs of Vital Signs/I&O Vital Signs Date Time Temp Pulse Resp B/P B/P Pulse O2 O2 Flow FiO2 Mean Ox Delivery Rate 04/20 0729 98.6 73 18 160/70 95 Room Air 04/19 2253 98.2 79 20 138/70 94 Room Air 04/19 1514 97.6 77 20 150/60 92 Room Air Intake & Output 04/20 1600 04/20 0800 04/20 0000 Intake Total Output Total 1150 850 Balance -1150 -850 Output, Urine 1150 850 Physical Exam General Appearance: Alert, Oriented X3, Cooperative, No Acute Distress Cardiovascular: Regular Rate, Normal S1, Normal S2 Lungs: Clear to Auscultation Abdomen: Normal Bowel Sounds, Soft, No Tenderness Extremities: Foot wrapped, exam deferred. Current Medications: Current Medications Sig/Terese Start time Last Medication Dose Route Stop Time Status Admin Acetaminophen 650 MG Q4P PRN 04/19 1400 AC 04/19 PO 1359 Amlodipine Besylate 5 MG DAILY 04/18 2105 DC 04/19 PO 0901 Aspirin 81 MG DAILY 04/19 1132 AC 04/20 PO 0914 Atorvastatin Calcium 80 MG 1700 04/19 1700 AC 04/19 PO 1649 Clopidogrel Bisulfate 75 MG DAILY 04/19 1132 AC 04/20 PO 0914 Dextrose/Sodium 1,000 ML Q20H 04/19 2200 CAN Chloride IV Fluticasone 2 SPRAY DAILY 04/19 1000 AC 04/20 Propionate KARI 0915 Heparin Sodium 5,000 UNIT Q8 04/18 2200 AC 04/20 (Porcine) SC 0530 Hydrocodone Bitart/ 1 TAB Q6P PRN 04/19 1400 AC 04/19 Acetaminophen PO 2319 Insulin Aspart 0 TIDAC 04/19 0800 AC 04/19 SC 1651 Insulin Detemir 18 UNITS BID 04/19 2200 AC 04/20 SC 0915 Insulin Detemir 18 UNITS BID 04/18 2200 DC 04/19 MT 0925 Insulin Human Regular 0 Q6 04/19 2359 CAN SC Lisinopril 20 MG DAILY 04/19 1422 AC 04/19 PO 1649 Memantine 10 MG QPM 04/18 2200 AC 04/19 PO 2223 Omeprazole 20 MG DAILY AC 04/19 0700 AC 04/20 PO 0528 Last 24 Hrs of Lab/Braulio Results Last 24 Hrs of Labs/Mics: Laboratory Tests 04/20/17 0535: Anion Gap 9, Estimated GFR 28 L, BUN/Creatinine Ratio 18.9, CBC w Diff NO MAN DIFF REQ, RBC 2.79 L, MCV 82.7, MCH 27.3, MCHC 33.0, RDW 14.8 H, MPV 8.9, Gran % 71.6, Lymphocytes % 17.7 L, Monocytes % 7.3, Eosinophils % 3.1, Basophils % 0.3, Absolute Granulocytes 3.7, Absolute Lymphocytes 0.9 L, Absolute Monocytes 0.4, Absolute Eosinophils 0.2, Absolute Basophils 0 Assessment/Plan Assessment: 66 year old female with past medical history significant for h/o vulvar carcinoma, depression/anxiety, diabetes, and h/o osteomyelitis, severe peripheral vascular disease with left foot cellulitis and right foot third digit amputation is being admitted for suspected osteomyelitis and emergent wound debridement. Osteomyelitis: Afebrile without leukocytosis on arrival s/p debridement in the operating room previously on vancomycin 1gram q24 hours, Random vancomycin >20 held for now Cultures +GNR Follow up podiatry recommendations, plan for repeat debridement, bone biopsy for osteomyelitis on Saturday Infectious disease consultation, appreciating recommendations, monitoring off antibiotics Nonweightbearing, right heel ulcer Restarted tylenol and vicodin for analgesia prn Anemia: likely chronic disease related, CTM. DM: Accuchecks TIDAC/HS Novolog sliding scale insulin Levemir 18 units BID, was previously on 43 units lantus qhs HTN: Hold HCTZ and ACEi for now with renal insufficiency Can restart ACEi, FeNA high likely chronic renal disease Renal insufficiency-unclear if BHAVIN vs CKD Records pending from [facility], faxed request form PSA stent/PVD: Pseudoaneurysm stent? uncertain patient's vascular surgery history Continue aspirin/plavix, discussed with podiatry, jose with further debridement on DAPT Continue high dose statin therapy Gluteal decubitus ulcer: Wound care consultation Dementia: Continue namenda Confused and cognitive slowing noted after anesthesia Hold narcotics, tramadol, and gabapentin for now Diabetic diet DVT ppx-heparin 5000units subcutaneous Full code Problem List: 1. Osteomyelitis Pain Ratin Pain Location: foot Pain Goal: Remain pain free Pain Plan: see a/p Tomorrow's Labs & Rationales: cbc
--- NOTE | 2017-04-20 13:55 | PN- Infect Dx ---
Subjective Subjective: Minimal foot discomfort; no fever/chills. Review of Systems Comments: 12 points reviewed as noted, otherwise negative. Objective Last 24 Hrs of Vital Signs/I&O Vital Signs Date Time Temp Pulse Resp B/P B/P Pulse O2 O2 Flow FiO2 Mean Ox Delivery Rate 04/20 0729 98.6 73 18 160/70 95 Room Air 04/19 2253 98.2 79 20 138/70 94 Room Air 04/19 1514 97.6 77 20 150/60 92 Room Air Intake & Output 04/20 1600 04/20 0800 04/20 0000 Intake Total Output Total 1150 850 Balance -1150 -850 Output, Urine 1150 850 Physical Exam Other Physical Findings: Afebrile. She is awake and alert, in no acute distress. Skin stasis dermatitis b/l LE's. HEENT AT/NC, moist oral mucosa. Neck is supple with no adenopathy. Lungs are clear. Heart regular rhythm with no murmur. Abdomen is obese, soft, nontender with positive bowel sounds; suprapubic area with marked induration. Back no CVA tenderness; perirectal ulcerations. 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 Neuro is without focality. Results Last 24 Hours of Lab Results: Laboratory Tests 04/20 0535 Chemistry Sodium (137 - 145 mmol/L) 141 Potassium (3.5 - 5.1 mmol/L) 3.8 Chloride (98 - 107 mmol/L) 101 Carbon Dioxide (22 - 30 mmol/L) 30 Anion Gap (5 - 16) 9 BUN (7 - 17 mg/dL) 34 H Creatinine (0.5 - 1.0 mg/dL) 1.8 H Estimated GFR (>60 ml/min) 28 L BUN/Creatinine Ratio (7 - 25 %) 18.9 Hematology CBC w Diff NO MAN DIFF REQ WBC (4.8 - 10.8 /CUMM) 5.1 RBC (4.20 - 5.40 /CUMM) 2.79 L Hgb (12.0 - 16.0 G/DL) 7.6 L Hct (37 - 47 %) 23.1 L MCV (81.0 - 99.0 FL) 82.7 MCH (27.0 - 31.0 PG) 27.3 MCHC (33.0 - 37.0 G/DL) 33.0 RDW (11.5 - 14.5 %) 14.8 H Plt Count (130 - 400 /CUMM) 222 MPV (7.4 - 10.4 FL) 8.9 Gran % (42.2 - 75.2 %) 71.6 Lymphocytes % (20.5 - 51.1 %) 17.7 L Monocytes % (1.7 - 9.3 %) 7.3 Eosinophils % (0 - 5 %) 3.1 Basophils % (0.0 - 2.0 %) 0.3 Absolute Granulocytes (1.4 - 6.5 /CUMM) 3.7 Absolute Lymphocytes (1.2 - 3.4 /CUMM) 0.9 L Absolute Monocytes (0.10 - 0.60 /CUMM) 0.4 Absolute Eosinophils (0.0 - 0.7 /CUMM) 0.2 Absolute Basophils (0.0 - 0.2 /CUMM) 0 Last 24 Hours of Braulio Results: SPEC #: [id number] LEO: 04/18/17 STATUS: RES RECD: 04/18/[address]: Bea Auguste SOURCE: [facility] ENTR: 04/18/[address] [facility] [address]: Patient Has No Primary Care SPDESC: FOOT R ORDERED: XTRMOR COMMENT: SIX SMALL PIECES IF TISSUE IN A STERILE CUP ADDITIONAL INFORMATION: SOFT TISSUE REPORT TO DR CASTILLO DPM Procedure Result > GRAM STAIN Final 04/19/171004 WHITE BLOOD CELLS RARE GRAM NEGATIVE RODS FEW > EXTREMITIES OR SPECIMEN Preliminary 04/20/17 Moderate growth of: 1.ENTEROBACTER CLOACAE 2.PROTEUS MIRABILIS Called to/Readback by VINCENT by LAB.[facility] 04/19/17 1004 E.cloacae P.mirabili RX AB RX AB ------ -- ------ -- AMPICILLIN R S CEFAZOLIN R S AMOX/CLAV AUGM R S AMP/SULB-UNASYN R S CEFOXITIN R CEFTAZIDIME S CEFTRIAXONE I CIPROFLOXACIN R R GENTAMICIN I S TRIMETH/SULFA S R 1. ENTEROBACTER CLOACAE Recent Imaging Studies: IMPRESSION: Plantar soft tissue defect consistent with a plantar ulcer. Findings suspicious for associated osteomyelitis with irregularity of the cortical margin of the medial cuneiform. DICTATED BY: Livier Kwan MD DATE/TIME DICTATED:04/18/171419 HURRICANE TRACKER:CORY DATE/TIME TRANSCRIBED:04/18/171419 CONFIDENTIAL, DO NOT COPY WITHOUT APPROPRIATE AUTHORIZATION. Assessment/Plan ID Impression: This is a 66-year-old woman with a history of dementia, diabetes and peripheral vascular disease, with a right foot plantar ulcer of unknown duration, recently begun on Vancomycin for a positive wound culture for MRSA, with no further details available, admitted on April 18 for debridement of the soft tissues of the right mid foot and right heel, which was performed on the day of admission, with no evidence for bone exposure, and with temperatures and white blood cell count normal. Evaluated for right foot OM; local ca + Enterobacter/Proteus. She is felt by Podiatry to have a Charcot foot, which could mimic osteomyelitis on x-ray and MRI; therefore she would likely require a bone biopsy if the diagnosis of osteomyelitis is to be pursued. As she is stable, with temperatures and white blood cell count normal, feel that she can be followed off antibiotics pending further evaluation. The erythema and edema of both lower extremities appear to be chronic and likely secondary to venous stasis disease. Pyuria/asympt UTI Suggestion: 1. Obtain MRI of the right foot (though, as noted, this may not distinguish osteomyelitis from a Charcot foot) 2. Would consider bone biopsy of the right foot once she has been off antibiotics for at least 72 hours 3. Further evaluation/management of her renal failure per Medicine 4. Continue to follow off antibiotics pending above 5. Call if fever; hypotensive; increased erythema R LE.
[2017-04-20 14:29] VITALS: BP 166/70
--- NOTE | 2017-04-20 14:33 | PN- Podiatry ---
Subjective Subjective: This is a 66-year-old female who is seen and evaluated at bedside postoperative day 2 debridement of a large plantar right midfoot ulceration and a stage II decubitus ulceration of the right heel. The patient is resting comfortably in bed and reports no complaints. Review of Systems: A 14 point review of systems was performed, and was found to be negative apart from the patient's complaints described above in the history of present illness. Objective Vital Signs and I&Os Vital Signs Date Time Temp Pulse Resp B/P B/P Pulse O2 O2 Flow FiO2 Mean Ox Delivery Rate 04/20 0729 98.6 73 18 160/70 95 Room Air 04/19 2253 98.2 79 20 138/70 94 Room Air 04/19 1514 97.6 77 20 150/60 92 Room Air Intake & Output 04/20 1600 04/20 0804/20 0000 04/19 1600 04/19 0000 Intake Total 410 410 Output Total 1150 544 365 7006 350 Balance -1150 -850 -980 -1590 60 Intake, IV 300 410 Intake, Oral 110 0 Number 1 0 Bowel Movements Output, Urine 1150 999 820 0507 350 Patient 190 lb Weight Weight Estimated Measurement Method Physical Exam: The patient's neurovascular exam is unchanged from admission. The plantar midfoot wound on the right remains stable, with epithelializing marginal skin, a fibro-granular base, no drainage, no capillary oozing, no malodor, and no new skin necrosis. The stage II decubitus lesion of the right heel is also epithelializing and has formed a small eschar in its proximal lateral quadrant. The neuropathic lesion underneath the first metatarsal head on the left side has begun to epithelialize over and is now completely dry. There is no strikethrough on the dressings. Current Medications: Current Medications Sig/Terese Start time Last Medication Dose Route Stop Time Status Admin Acetaminophen 650 MG Q4P PRN 04/19 1400 AC 04/19 PO 1359 Aspirin 81 MG DAILY 04/19 1132 AC 04/20 PO 0914 Atorvastatin Calcium 80 MG 1700 04/19 1700 AC 04/19 PO 1649 Clopidogrel Bisulfate 75 MG DAILY 04/19 1132 AC 04/20 PO 0914 Fluticasone 2 SPRAY DAILY 04/19 1000 AC 04/20 Propionate KARI 0915 Heparin Sodium 5,000 UNIT Q8 04/18 2200 AC 04/20 (Porcine) SC 1323 Hydrocodone Bitart/ 1 TAB Q6P PRN 04/19 1400 AC 04/19 Acetaminophen PO 2319 Insulin Aspart 0 TIDAC 04/19 0800 AC 04/20 SC 1323 Insulin Detemir 18 UNITS BID 04/19 2200 AC 04/20 SC 0915 Lisinopril 20 MG DAILY 04/19 1422 AC 04/19 PO 1649 Memantine 10 MG QPM 04/18 2200 AC 04/19 PO 2223 Omeprazole 20 MG DAILY AC 04/19 0700 AC 04/20 PO 0528 Results Last 48 Hours of Labs: Laboratory Tests 04/20 04/19 0535 0440 Chemistry Sodium (137 - 145 mmol/L) 141 141 Potassium (3.5 - 5.1 mmol/L) 3.8 3.9 Chloride (98 - 107 mmol/L) 101 101 Carbon Dioxide (22 - 30 mmol/L) 30 31 H Anion Gap (5 - 16) 9 9 BUN (7 - 17 mg/dL) 34 H 35 H Creatinine (0.5 - 1.0 mg/dL) 1.8 H 2.3 H Estimated GFR (>60 ml/min) 28 L 21 L BUN/Creatinine Ratio (7 - 25 %) 18.9 15.2 Calcium (8.4 - 10.2 mg/dL) 8.6 Phosphorus (2.5 - 4.5 mg/dL) 4.1 Magnesium (1.6 - 2.3 mg/dL) 1.7 Iron (37 - 170 ug/dL) 19 L TIBC (265 - 497 ug/dL) 241 L Ferritin (11.1 - 264 ng/mL) 157.0 Hematology CBC w Diff NO MAN DIFF REQ NO MAN DIFF REQ WBC (4.8 - 10.8 /CUMM) 5.1 6.7 RBC (4.20 - 5.40 /CUMM) 2.79 L 2.99 L Hgb (12.0 - 16.0 G/DL) 7.6 L 8.1 L Hct (37 - 47 %) 23.1 L 24.9 L MCV (81.0 - 99.0 FL) 82.7 83.2 MCH (27.0 - 31.0 PG) 27.3 26.9 L MCHC (33.0 - 37.0 G/DL) 33.0 32.3 L RDW (11.5 - 14.5 %) 14.8 H 15.7 H Plt Count (130 - 400 /CUMM) 222 236 MPV (7.4 - 10.4 FL) 8.9 8.3 Gran % (42.2 - 75.2 %) 71.6 78.5 H Lymphocytes % (20.5 - 51.1 %) 17.7 L 10.9 L Monocytes % (1.7 - 9.3 %) 7.3 7.5 Eosinophils % (0 - 5 %) 3.1 2.7 Basophils % (0.0 - 2.0 %) 0.3 0.4 Absolute Granulocytes (1.4 - 6.5 /CUMM) 3.7 5.3 Absolute Lymphocytes (1.2 - 3.4 /CUMM) 0.9 L 0.7 L Absolute Monocytes (0.10 - 0.60 /CUMM) 0.4 0.5 Absolute Eosinophils (0.0 - 0.7 /CUMM) 0.2 0.2 Absolute Basophils (0.0 - 0.2 /CUMM) 0 0 Toxicology Random Vancomycin (ug/ml) 20.5 04/18 04/18 1509 1441 Chemistry Sodium (137 - 145 mmol/L) 142 Potassium (3.5 - 5.1 mmol/L) 4.1 Chloride (98 - 107 mmol/L) 99 Carbon Dioxide (22 - 30 mmol/L) 30 Anion Gap (5 - 16) 13 BUN (7 - 17 mg/dL) 37 H Creatinine (0.5 - 1.0 mg/dL) 2.3 H Estimated GFR (>60 ml/min) 21 L BUN/Creatinine Ratio (7 - 25 %) 16.1 Glucose (65 - 99 mg/dL) 174 H Lactic Acid (0.7 - 2.1 mmol/L) Cancelled 0.8 Calcium (8.4 - 10.2 mg/dL) 9.2 Total Bilirubin (0.2 - 1.3 mg/dL) 0.3 AST (14 - 36 U/L) 15 ALT (9 - 52 U/L) 14 Alkaline Phosphatase (<127 U/L) 81 Total Protein (6.3 - 8.2 g/dL) 6.3 Albumin (3.5 - 5.0 g/dL) 3.2 L Globulin (1.9 - 4.2 gm/dL) 3.1 Albumin/Globulin Ratio (1.1 - 2.2 %) 1.0 L Hematology CBC w Diff NO MAN DIFF REQ WBC (4.8 - 10.8 /CUMM) 8.1 RBC (4.20 - 5.40 /CUMM) 3.30 L Hgb (12.0 - 16.0 G/DL) 8.9 L Hct (37 - 47 %) 27.4 L MCV (81.0 - 99.0 FL) 83.0 MCH (27.0 - 31.0 PG) 27.0 MCHC (33.0 - 37.0 G/DL) 32.6 L RDW (11.5 - 14.5 %) 15.6 H Plt Count (130 - 400 /CUMM) 266 MPV (7.4 - 10.4 FL) 8.3 Gran % (42.2 - 75.2 %) 78.5 H Lymphocytes % (20.5 - 51.1 %) 10.4 L Monocytes % (1.7 - 9.3 %) 7.3 Eosinophils % (0 - 5 %) 2.4 Basophils % (0.0 - 2.0 %) 1.4 Absolute Granulocytes (1.4 - 6.5 /CUMM) 6.3 Absolute Lymphocytes (1.2 - 3.4 /CUMM) 0.8 L Absolute Monocytes (0.10 - 0.60 /CUMM) 0.6 Absolute Eosinophils (0.0 - 0.7 /CUMM) 0.2 Absolute Basophils (0.0 - 0.2 /CUMM) 0.1 Toxicology Random Vancomycin (ug/ml) 24.8 Assessment/Plan Assessment/Plan 66-year-old female with type 2 diabetes, Charcot neuroarthropathy of the right foot, large plantar midfoot ulceration of the right foot, stage II decubitus lesion of the right heel, epithelializing neuropathic lesion underneath the first metatarsal head of the left foot. The patient was seen and evaluated at bedside in tandem with Dr. Rocha. The patient is to remain nonweightbearing at all times until further notice. A wet-to-dry dressing was placed over the right midfoot and a dry sterile dressing was placed in the right heel incorporated into a single Kerlix and 4 inch Rohit bandage. The left foot may remain dry to epithelialize without a dressing so long as decubitus protocols otherwise maintained in the patient is maintained nonweightbearing at all times. The case was discussed with Alexis Hernandez MD over the phone yesterday, and we agreed to monitor off of antibiotics over the weekend to distinguish which are for clinical changes are resultant from Charcot neuroarthropathy at which are from the infection. Given the patient's continually improving white count and improvement of acute symptoms on 2 days of nonweightbearing, I have increasing reason to believe that this was a superficial infection exaggerated by clinical signs of acute Charcot. Patient's radiographic findings of erosion are largely dorsal medial, inconsistent with the plantar lateral location of the large ulceration. We will return the patient on Saturday afternoon for an additional debridement and initiation of negative pressure wound therapy, and this will likely be her outpatient recommendation. Full local wound care recommendations and weightbearing recommendations will be made prior to discharge to be related to the snf. I will return on Saturday morning to change the dressing once more, and I'm available for further discussion on the case in the interim at [phone].
[2017-04-20 23:28] VITALS: BP 178/80
[2017-04-21 07:01] VITALS: BP 189/77
[2017-04-21 08:21] LABS: ABSOLUTE BASOPHIL COUNT 0 /CUMM (0.0-0.2); ABSOLUTE EOSINOPHIL COUNT 0.1 /CUMM (0.0-0.7); ABSOLUTE GRANULOCYTE CT 4.4 /CUMM (1.4-6.5); ABSOLUTE LYMPH COUNT 0.9 /CUMM (1.2-3.4); ABSOLUTE MONOCYTE COUNT 0.5 /CUMM (0.10-0.60); BASOPHIL % 0.6 % (0.0-2.0); EOSINOPHIL % 1.8 % (0-5); GRANULOCYTE % 74.4 % (42.2-75.2); HEMATOCRIT 26.1 % (37-47); MEAN CORPUSCULAR HGB CONC 32.7 G/DL (33.0-37.0); MEAN CORPUSCULAR VOLUME 82.4 FL (81.0-99.0); MEAN PLATELET VOLUME 8.7 FL (7.4-10.4); PLATELET COUNT 254 /CUMM (130-400); RED BLOOD CELL CT 3.17 /CUMM (4.20-5.40); WHITE BLOOD CELL COUNT 5.9 /CUMM (4.8-10.8)
--- NOTE | 2017-04-21 08:27 | PN- Housestaff ---
See Addendum Subjective Follow-up For: foot infection, osteo Subjective: No overnight events. Patient is feeling fatigued this morning. No fever, CP, or SOB. Review of Systems Constitutional: Reports: see HPI. EENTM: Reports: no symptoms. Cardiovascular: Reports: no symptoms. Respiratory: Reports: no symptoms. Gastrointestinal: Reports: no symptoms. Genitourinary: Reports: no symptoms. Musculoskeletal: Reports: no symptoms. Skin: Reports: no symptoms. Neurological/Psychological: Reports: no symptoms. Hematologic/Endocrine: Reports: no symptoms. Immunologic/Allergic: Reports: no symptoms. Objective Last 24 Hrs of Vital Signs/I&O Vital Signs Date Time Temp Pulse Resp B/P B/P Pulse O2 O2 Flow FiO2 Mean Ox Delivery Rate 04/21 0701 98.9 73 18 189/77 98 Room Air 04/21 0610 73 187/77 04/20 2328 98.9 73 20 178/80 96 Room Air 04/20 1429 74.0 74 20 166/70 96 Room Air Intake & Output 04/21 1600 04/21 0800 04/21 0000 Intake Total Output Total 1400 1800 Balance -1400 -1800 Number 2 Bowel Movements Output, Urine 1400 1800 Physical Exam General Appearance: Alert, Oriented X3, Cooperative, No Acute Distress Cardiovascular: Regular Rate, Normal S1, Normal S2 Lungs: Clear to Auscultation Abdomen: Normal Bowel Sounds, Soft, No Tenderness Extremities: deferred Current Medications: Current Medications Sig/Terese Start time Last Medication Dose Route Stop Time Status Admin Acetaminophen 650 MG Q4P PRN 04/19 1400 AC 04/19 PO 1359 Aspirin 81 MG DAILY 04/19 1132 AC 04/20 PO 0914 Atorvastatin Calcium 80 MG 1700 04/19 1700 AC 04/20 PO 1831 Clopidogrel Bisulfate 75 MG DAILY 04/19 1132 AC 04/20 PO 0914 Ferrous Sulfate 325 MG DAILY 04/20 1839 AC 04/20 PO 2213 Fluticasone 2 SPRAY DAILY 04/19 1000 AC 04/20 Propionate KARI 0915 Heparin Sodium 5,000 UNIT Q8 04/18 2200 AC 04/21 (Porcine) SC 0611 Hydrocodone Bitart/ 1 TAB Q6P PRN 04/19 1400 AC 04/19 Acetaminophen PO 2319 Insulin Aspart 0 TIDAC 04/19 0800 AC 04/20 SC 1831 Insulin Detemir 18 UNITS BID 04/19 2200 AC 04/20 SC 2209 Lisinopril 20 MG DAILY 04/19 1422 AC 04/21 PO 0610 Memantine 10 MG QPM 04/18 2200 AC 04/20 PO 2208 Omeprazole 20 MG DAILY AC 04/19 0700 AC 04/21 PO 0610 Last 24 Hrs of Lab/Braulio Results Last 24 Hrs of Labs/Mics: Laboratory Tests 04/21/17 0615: CBC w Diff Pending, WBC Pending, RBC Pending, Hgb Pending, Hct Pending, MCV Pending, MCH Pending, MCHC Pending, RDW Pending, Plt Count Pending, MPV Pending 04/20/17 1628: ESR Westergren > 130 H Assessment/Plan Assessment: 66 year old female with past medical history significant for h/o vulvar carcinoma, depression/anxiety, diabetes, and h/o osteomyelitis, severe peripheral vascular disease with left foot cellulitis and right foot third digit amputation is being admitted for suspected osteomyelitis and emergent wound debridement. Osteomyelitis: Afebrile without leukocytosis on arrival s/p debridement in the operating room previously on vancomycin 1gram q24 hours, Random vancomycin >20 held for now Cultures +GNR Follow up podiatry recommendations, plan for repeat debridement, bone biopsy for osteomyelitis on Saturday Infectious disease consultation, appreciating recommendations, monitoring off antibiotics Nonweightbearing, right heel ulcer Restarted tylenol and vicodin for analgesia prn ESR elevated >130. Anemia: likely chronic disease related, CTM. DM: Accuchecks TIDAC/HS Novolog sliding scale insulin Levemir 18 units BID, was previously on 43 units lantus qhs HTN: Hold HCTZ and ACEi for now with renal insufficiency Can restart ACEi, FeNA high likely chronic renal disease Renal insufficiency-unclear if BHAVIN vs CKD Records pending from [facility], faxed request form PSA stent/PVD: Pseudoaneurysm stent? uncertain patient's vascular surgery history Continue aspirin/plavix, discussed with podiatry, ok with further debridement on DAPT Continue high dose statin therapy Gluteal decubitus ulcer: Wound care consultation Dementia: Continue namenda Confused and cognitive slowing noted after anesthesia Hold narcotics, tramadol, and gabapentin for now Diabetic diet DVT ppx-heparin 5000units subcutaneous Full code Problem List: 1. Osteomyelitis Pain Ratin Pain Location: no Pain Goal: Remain pain free Pain Plan: see a/p Tomorrow's Labs & Rationales: cbc
--- NOTE | 2017-04-21 13:26 | PN- Infect Dx ---
Subjective Subjective: Comfortable; no fevere; denies diarrhea. Review of Systems Comments: 12 points reviewed as noted, otherwise negative Objective Last 24 Hrs of Vital Signs/I&O Vital Signs Date Time Temp Pulse Resp B/P B/P Pulse O2 O2 Flow FiO2 Mean Ox Delivery Rate 04/21 0701 98.9 73 18 189/77 98 Room Air 04/21 0610 73 187/77 04/20 2328 98.9 73 20 178/80 96 Room Air 04/20 1429 74.0 74 20 166/70 96 Room Air Intake & Output 04/21 1600 04/21 0800 04/21 0000 Intake Total Output Total 1400 1800 Balance -1400 -1800 Number 2 Bowel Movements Output, Urine 1400 1800 Physical Exam Other Physical Findings: Afebrile. She is awake and alert, in no acute distress. Skin stasis dermatitis b/l LE's. HEENT AT/NC, moist oral mucosa. Neck is supple with no adenopathy. Lungs are clear. Heart regular rhythm with no murmur. Abdomen is obese, soft, nontender with positive bowel sounds; suprapubic area with marked induration. Back no CVA tenderness; perirectal ulcerations. 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 Neuro is without focality. Results Last 24 Hours of Lab Results: Laboratory Tests 04/21 04/20 0615 1628 Hematology CBC w Diff NO MAN DIFF REQ WBC (4.8 - 10.8 /CUMM) 5.9 RBC (4.20 - 5.40 /CUMM) 3.17 L Hgb (12.0 - 16.0 G/DL) 8.6 L Hct (37 - 47 %) 26.1 L MCV (81.0 - 99.0 FL) 82.4 MCH (27.0 - 31.0 PG) 27.0 MCHC (33.0 - 37.0 G/DL) 32.7 L RDW (11.5 - 14.5 %) 15.0 H Plt Count (130 - 400 /CUMM) 254 MPV (7.4 - 10.4 FL) 8.7 Gran % (42.2 - 75.2 %) 74.4 Lymphocytes % (20.5 - 51.1 %) 15.0 L Monocytes % (1.7 - 9.3 %) 8.2 Eosinophils % (0 - 5 %) 1.8 Basophils % (0.0 - 2.0 %) 0.6 Absolute Granulocytes (1.4 - 6.5 /CUMM) 4.4 Absolute Lymphocytes (1.2 - 3.4 /CUMM) 0.9 L Absolute Monocytes (0.10 - 0.60 /CUMM) 0.5 Absolute Eosinophils (0.0 - 0.7 /CUMM) 0.1 Absolute Basophils (0.0 - 0.2 /CUMM) 0 ESR Westergren (0 - 20 MM) > 130 H Last 24 Hours of Braulio Results: SOURCE: [facility] ENTR: 04/18/17-[address]: Patient Has No Primary Care Dr SINGHESC: FOOT R ORDERED: XTRMOR COMMENT: SIX SMALL PIECES IF TISSUE IN A STERILE CUP ADDITIONAL INFORMATION: SOFT TISSUE REPORT TO DR CASTILLO DPM Procedure Result > GRAM STAIN Final 04/19/17-1004 WHITE BLOOD CELLS RARE GRAM NEGATIVE RODS FEW > EXTREMITIES OR SPECIMEN Final 04/21/17-0848 Moderate growth of: 1.ENTEROBACTER CLOACAE 2.PROTEUS MIRABILIS Called to/Readback by VINCENT by LAB.[facility] 04/19/17 1004 E.cloacae P.mirabili RX AB RX AB ------ -- ------ -- AMPICILLIN R S CEFAZOLIN R S AMOX/CLAV AUGM R S AMP/SULB-UNASYN R S CEFOXITIN R CEFTAZIDIME S CEFTRIAXONE I CIPROFLOXACIN R R GENTAMICIN I S TRIMETH/SULFA S R 1. ENTEROBACTER CLOACAE RX AB ------ -- AMPICILLIN R CEFAZOLIN R AMOXICILLIN/CLAVULINIC ACID R AMPICILLIN/SULBACTAM R CEFOXITIN R CEFTAZIDIME S CEFTRIAXONE I CIPROFLOXACIN R GENTAMICIN I TRIMETHOPRIM/SULFAMETHOXAZOLE S 2. PROTEUS MIRABILIS RX AB ------ -- AMPICILLIN S CEFAZOLIN S AMOXICILLIN/CLAVULINIC ACID S AMPICILLIN/SULBACTAM S CIPROFLOXACIN R GENTAMICIN S TRIMETHOPRIM/SULFAMETHOXAZOLE R Recent Imaging Studies: X ray R foot IMPRESSION: Plantar soft tissue defect consistent with a plantar ulcer. Findings suspicious for associated osteomyelitis with irregularity of the cortical margin of the medial cuneiform. DICTATED BY: Livier Kwan MD DATE/TIME DICTATED:04/18/171419 TRANSPORTATION MAINTENANCE SPECIALIST:CORY DATE/TIME TRANSCRIBED:04/18/171419 Assessment/Plan ID Impression: This is a 66-year-old woman with a history of dementia, diabetes and peripheral vascular disease, with a right foot plantar ulcer of unknown duration, recently begun on Vancomycin for a positive wound culture for MRSA, with no further details available, admitted on April 18 for debridement of the soft tissues of the right mid foot and right heel, which was performed on the day of admission, with no evidence for bone exposure, and with temperatures and white blood cell count normal. Evaluated for right foot OM; local culture + Enterobacter/Proteus. She is felt by Podiatry to have a Charcot foot, which could mimic osteomyelitis on x-ray and MRI; therefore she would likely require a bone biopsy if the diagnosis of osteomyelitis is to be pursued. As temperatures and white blood cell count normal, patient observed off antibiotics pending further evaluation. The erythema and edema of both lower extremities appear to be chronic and likely secondary to venous stasis disease. Pyuria/asymptomatic UTI Suggestion: 1. Obtain MRI of the right foot eval OM(of note ESTR elevated>130) 2. Bone biopsy of the right foot early next week (once she has been off antibiotics for at least 72 hours) 3. Followed off antibiotics pending above; call if fever; hypotensive; increased erythema R LE.
[2017-04-21 15:30] VITALS: BP 130/78
[2017-04-21 22:35] VITALS: BP 188/57
[2017-04-21 23:22] VITALS: BP 186/80
[2017-04-22 07:09] VITALS: BP 182/62
--- NOTE | 2017-04-22 07:34 | PN- Housestaff ---
See Addendum Subjective Follow-up For: wound infection/osteomyelitis Subjective: patient has no complaints today reports feeling tired and sleepy this morning but foot pain is well controlled afebrile without leukocytosis, nonweightbearing hwang remains in place with cloudy urine Review of Systems Constitutional: Reports: see HPI. Objective Last 24 Hrs of Vital Signs/I&O Vital Signs Date Time Temp Pulse Resp B/P B/P Pulse O2 O2 Flow FiO2 Mean Ox Delivery Rate 04/22 0709 98.1 72 18 182/62 96 04/21 2322 73 186/80 04/21 2235 98.6 75 20 188/57 97 Room Air 04/21 1530 98.3 76 20 130/78 98 Room Air Intake & Output 04/22 1600 04/22 0800 04/22 0000 Intake Total Output Total 500 2200 Balance -500 -2200 Output, Urine 500 2200 Physical Exam General Appearance: Alert, Cooperative, No Acute Distress, obese Cardiovascular: Regular Rate, Normal S1, Normal S2, No Murmurs Lungs: Clear to Auscultation, Normal Air Movement Abdomen: Normal Bowel Sounds, Soft, No Tenderness, No Masses, +hwang, cloudy urine Extremities: No Cyanosis, bilateral pitting edema with erythema, left foot plantar ulcer, right foot dressing s/p plantar, r heel I+D Current Medications: Current Medications Sig/Terese Start time Last Medication Dose Route Stop Time Status Admin Acetaminophen 650 MG Q4P PRN 04/19 1400 AC 04/19 PO 1359 Aspirin 81 MG DAILY 04/19 1132 AC 04/21 PO 0833 Atorvastatin Calcium 80 MG 1700 04/19 1700 AC 04/21 PO 1748 Clopidogrel Bisulfate 75 MG DAILY 04/19 1132 AC 04/21 PO 0834 Ferrous Sulfate 325 MG DAILY 04/20 1839 AC 04/21 PO 0834 Fluticasone 2 SPRAY DAILY 04/19 1000 AC 04/21 Propionate KARI 0834 Heparin Sodium 5,000 UNIT Q8 04/18 2200 AC 04/22 (Porcine) SC 0553 Hydrochlorothiazide 25 MG DAILY 04/22 1000 AC PO Hydrocodone Bitart/ 1 TAB Q6P PRN 04/19 1400 AC 04/19 Acetaminophen PO 2319 Insulin Aspart 0 TIDAC 04/19 0800 AC 04/22 SC 0829 Insulin Detemir 20 UNITS BID 04/22 1000 AC SC Insulin Detemir 18 UNITS BID 04/19 2200 DC 04/21 SC 2146 Lisinopril 40 MG DAILY 04/22 1000 AC PO Lisinopril 20 MG DAILY 04/19 1422 DC 04/21 PO 0610 Memantine 10 MG QPM 04/18 2200 AC 04/21 PO 2145 Omeprazole 20 MG DAILY AC 04/19 0700 AC 04/22 PO 0552 Potassium Chloride 40 MEQ ONCE ONE 04/21 1630 DC 04/21 PO 04/21 1631 1749 Last 24 Hrs of Lab/Braulio Results Last 24 Hrs of Labs/Mics: Laboratory Tests 04/22/17 0558: CBC w Diff Pending, WBC Pending, RBC Pending, Hgb Pending, Hct Pending, MCV Pending, MCH Pending, MCHC Pending, RDW Pending, Plt Count Pending, MPV Pending 04/21/17 1325: Anion Gap 12, Estimated GFR 37 L, BUN/Creatinine Ratio 18.6 Microbiology 04/22 0757 URINE ROUT: Urine Culture - ORD Assessment/Plan Assessment: 66 year old female with past medical history significant for h/o vulvar carcinoma, depression/anxiety, diabetes, and h/o osteomyelitis, severe peripheral vascular disease with left foot cellulitis and right foot third digit amputation is being admitted for suspected osteomyelitis and emergent wound debridement. Osteomyelitis: Afebrile without leukocytosis on arrival s/p debridement in the operating room Infectious disease consulted Monitoring off antibiotics at least 72 hours prior to bone biopsy No MRI at this time, Charcot mimics osteomyelitis, lateral wound with medial bone changes ESR elevated >130 Follow up podiatry recommendations Plan for repeat debridement and bone biopsy for osteomyelitis on Saturday Nonweightbearing, right heel ulcer local wound care and dressing changes Restarted tylenol and vicodin for analgesia prn DM: Accuchecks TIDAC/HS, last 24 hours 160-240 Novolog sliding scale insulin Increasse Levemir from 18 units BID -> 20 units BID, was previously on 43 units lantus qhs HTN: HCTZ and lisinopril resumed, blood pressure remains elevated Monitor renal function, Creatinine improved from 2.3 -> 1.4 today Likely CKD given high FeNa, unclear baseline Follow up record request from [place], faxed request PSA stent/PVD: Pseudoaneurysm stent? uncertain patient's vascular surgery history Continue aspirin/plavix, discussed with podiatry, ok with further debridement on DAPT Continue high dose statin therapy Gluteal ulcer: Wound care consultation Offloading and local wound care Anemia: likely chronic disease related, continue iron supplementation Dementia: Continue namenda Oriented to self only Discontinue Hwang catheter and repeat urinalysis and culture Diabetic diet DVT ppx-heparin 5000units subcutaneous q8h Full code Problem List: 1. Osteomyelitis Pain Ratin Pain Location: right foot Pain Goal: Pain 4 or less Pain Plan: prn Tomorrow's Labs & Rationales: cbc, bep
[2017-04-22 08:58] LABS: ABSOLUTE BASOPHIL COUNT 0 /CUMM (0.0-0.2); ABSOLUTE EOSINOPHIL COUNT 0.1 /CUMM (0.0-0.7); ABSOLUTE LYMPH COUNT 0.9 /CUMM (1.2-3.4); ABSOLUTE MONOCYTE COUNT 0.5 /CUMM (0.10-0.60); BASOPHIL % 0.6 % (0.0-2.0); EOSINOPHIL % 0.8 % (0-5); HEMATOCRIT 28.8 % (37-47); MEAN CORPUSCULAR HGB 26.2 PG (27.0-31.0); MEAN CORPUSCULAR HGB CONC 31.7 G/DL (33.0-37.0); MEAN CORPUSCULAR VOLUME 82.4 FL (81.0-99.0); MEAN PLATELET VOLUME 8.9 FL (7.4-10.4); PLATELET COUNT 302 /CUMM (130-400); RBC DISTRIBUTION WIDTH 15.2 % (11.5-14.5); RED BLOOD CELL CT 3.49 /CUMM (4.20-5.40); WHITE BLOOD CELL COUNT 6.5 /CUMM (4.8-10.8)
--- NOTE | 2017-04-22 12:37 | PN- Podiatry ---
Subjective Subjective: Patient seen and evaluated at bedside POD4 excisional debridement of a Charcot right mid foot ulcer. The patient reports no pain at the surgical site. Denies fever, chills, nausea, vomiting, diaphoresis, shortness of breath, chest pain at time of my examination. Patient can have basic conversation and is alert, but is not fully oriented. Review of Systems: A 14 point review of systems was performed, and was found to be negative apart from the patient's complaints described above in the history of present illness. Objective Vital Signs and I&Os Vital Signs Date Time Temp Pulse Resp B/P B/P Pulse O2 O2 Flow FiO2 Mean Ox Delivery Rate 04/22 1030 84 184/82 04/22 0709 98.1 72 18 182/62 96 04/21 2322 73 186/80 04/21 2235 98.6 75 20 188/57 97 Room Air 04/21 1530 98.3 76 20 130/78 98 Room Air Intake & Output 04/22 1600 04/22 0800 04/22 0000 04/21 1600 04/21 0800 04/21 0000 Intake Total 1200 Output Total 500 2200 1400 1800 Balance -500 -2200 1200 -1400 -1800 Intake, IV 0 Intake, Oral 1200 Number 2 2 Bowel Movements Output, Urine 500 2200 1400 1800 Physical Exam: The patient's neurovascular exam is unchanged from admission. The plantar midfoot wound on the right remains stable, with epithelializing marginal skin, a fibro-granular base, no drainage, no capillary oozing, no malodor, and no new skin necrosis. The stage II decubitus lesion of the right heel is also epithelializing. The neuropathic lesion underneath the first metatarsal head on the left side has begun to epithelialize over and is now completely dry. There is no strikethrough on the dressings. Current Medications: Current Medications Sig/Terese Start time Last Medication Dose Route Stop Time Status Admin Acetaminophen 650 MG Q4P PRN 04/19 1400 AC 04/19 PO 1359 Aspirin 81 MG DAILY 04/19 113 AC 04/22 PO 1030 Atorvastatin Calcium 80 MG 1700 04/19 1700 AC 04/21 PO 1748 Clopidogrel Bisulfate 75 MG DAILY 04/19 1132 AC 04/22 PO 1030 Ferrous Sulfate 325 MG DAILY 04/20 1839 AC 04/22 PO 1030 Fluticasone 2 SPRAY DAILY 02/23 1000 AC 04/22 Propionate KARI 1031 Heparin Sodium 5,000 UNIT Q8 04/18 2200 AC 04/22 (Porcine) SC 0553 Hydrochlorothiazide 25 MG DAILY 04/22 1000 AC 04/22 PO 1030 Hydrocodone Bitart/ 1 TAB Q6P PRN 04/19 1400 AC 04/19 Acetaminophen PO 2319 Insulin Aspart 0 TIDAC 04/19 0800 AC 04/22 SC 0829 Insulin Detemir 20 UNITS BID 04/22 1000 AC 04/22 SC 1035 Insulin Detemir 18 UNITS BID 04/19 2200 DC 04/21 SC 2146 Lisinopril 40 MG DAILY 04/22 1000 AC 04/22 PO 1030 Lisinopril 20 MG DAILY 04/19 1422 DC 04/21 PO 0610 Memantine 10 MG QPM 04/18 220 AC 04/21 PO 2145 Omeprazole 20 MG DAILY AC 04/19 0700 AC 04/22 PO 0552 Potassium Chloride 40 MEQ ONCE ONE 04/21 1630 DC 04/21 PO 04/21 1631 1749 Results Last 48 Hours of Labs: Laboratory Tests 04/22 04/21 0558 1325 Chemistry Sodium (137 - 145 mmol/L) 141 Potassium (3.5 - 5.1 mmol/L) 3.3 L Chloride (98 - 107 mmol/L) 98 Carbon Dioxide (22 - 30 mmol/L) 30 Anion Gap (5 - 16) 12 BUN (7 - 17 mg/dL) 26 H Creatinine (0.5 - 1.0 mg/dL) 1.4 H Estimated GFR (>60 ml/min) 37 L BUN/Creatinine Ratio (7 - 25 %) 18.6 Hematology CBC w Diff NO MAN DIFF REQ WBC (4.8 - 10.8 /CUMM) 6.5 RBC (4.20 - 5.40 /CUMM) 3.49 L Hgb (12.0 - 16.0 G/DL) 9.1 L Hct (37 - 47 %) 28.8 L MCV (81.0 - 99.0 FL) 82.4 MCH (27.0 - 31.0 PG) 26.2 L MCHC (33.0 - 37.0 G/DL) 31.7 L RDW (11.5 - 14.5 %) 15.2 H Plt Count (130 - 400 /CUMM) 302 MPV (7.4 - 10.4 FL) 8.9 Gran % (42.2 - 75.2 %) 77.0 H Lymphocytes % (20.5 - 51.1 %) 14.5 L Monocytes % (1.7 - 9.3 %) 7.1 Eosinophils % (0 - 5 %) 0.8 Basophils % (0.0 - 2.0 %) 0.6 Absolute Granulocytes (1.4 - 6.5 /CUMM) 5.0 Absolute Lymphocytes (1.2 - 3.4 /CUMM) 0.9 L Absolute Monocytes (0.10 - 0.60 /CUMM) 0.5 Absolute Eosinophils (0.0 - 0.7 /CUMM) 0.1 Absolute Basophils (0.0 - 0.2 /CUMM) 0 04/21 04/20 0615 1628 Hematology CBC w Diff NO MAN DIFF REQ WBC (4.8 - 10.8 /CUMM) 5.9 RBC (4.20 - 5.40 /CUMM) 3.17 L Hgb (12.0 - 16.0 G/DL) 8.6 L Hct (37 - 47 %) 26.1 L MCV (81.0 - 99.0 FL) 82.4 MCH (27.0 - 31.0 PG) 27.0 MCHC (33.0 - 37.0 G/DL) 32.7 L RDW (11.5 - 14.5 %) 15.0 H Plt Count (130 - 400 /CUMM) 254 MPV (7.4 - 10.4 FL) 8.7 Gran % (42.2 - 75.2 %) 74.4 Lymphocytes % (20.5 - 51.1 %) 15.0 L Monocytes % (1.7 - 9.3 %) 8.2 Eosinophils % (0 - 5 %) 1.8 Basophils % (0.0 - 2.0 %) 0.6 Absolute Granulocytes (1.4 - 6.5 /CUMM) 4.4 Absolute Lymphocytes (1.2 - 3.4 /CUMM) 0.9 L Absolute Monocytes (0.10 - 0.60 /CUMM) 0.5 Absolute Eosinophils (0.0 - 0.7 /CUMM) 0.1 Absolute Basophils (0.0 - 0.2 /CUMM) 0 ESR Westergren (0 - 20 MM) > 130 H Assessment/Plan Assessment/Plan 66-year-old female with type 2 diabetes, Charcot neuroarthropathy of the right foot, large plantar midfoot ulceration of the right foot, stage II decubitus lesion of the right heel, epithelializing neuropathic lesion underneath the first metatarsal head of the left foot. The patient was seen and evaluated at bedside in tandem with Dr. Rocha. The patient is to remain nonweightbearing at all times until further notice. A wet-to-dry dressing was placed over the right midfoot and a dry sterile dressing was placed in the right heel incorporated into a single Kerlix and 4 inch Rohit bandage. The left foot may remain dry to epithelialize without a dressing so long as decubitus protocols otherwise maintained in the patient is maintained nonweightbearing at all times. The case was discussed with Alexis Hernandez MD over the phone yesterday, and we agreed to monitor off of antibiotics over the weekend to distinguish which are for clinical changes are resultant from Charcot neuroarthropathy at which are from the infection. Given the patient's continually improving white count and improvement of acute symptoms on 2 days of nonweightbearing, I have increasing reason to believe that this was a superficial infection exaggerated by clinical signs of acute Charcot. Patient's radiographic findings of erosion are largely dorsal medial, inconsistent with the plantar lateral location of the large ulceration. We will return the patient on Saturday afternoon for an additional debridement and initiation of negative pressure wound therapy, and this will likely be her outpatient recommendation. Full local wound care recommendations and weightbearing recommendations will be made prior to discharge to be related to the fpc. I'm available for further discussion on the case in the interim at [phone].
[2017-04-22 15:01] VITALS: BP 180/82
--- NOTE | 2017-04-22 18:08 | PN- Infect Dx ---
Subjective Subjective: No fever; Folety cath patent. Discomfort R foot with light touch. Review of Systems Comments: 12 points reviewed as noted, otherwise negative. Objective Last 24 Hrs of Vital Signs/I&O Vital Signs Date Time Temp Pulse Resp B/P B/P Pulse O2 O2 Flow FiO2 Mean Ox Delivery Rate 04/22 1501 98.1 76 19 180/82 96 Room Air 04/22 1030 84 184/82 04/22 0709 98.1 72 18 182/62 96 04/21 2322 73 186/80 04/21 2235 98.6 75 20 188/57 97 Room Air Intake & Output 04/22 1600 04/22 0800 04/22 0000 Intake Total 600 Output Total 1153 424 3544 Balance -400 -500 -2200 Intake, Oral 600 Output, Urine 5490 567 7152 Physical Exam Other Physical Findings: Afebrile. She is awake and alert, in no acute distress. Skin stasis dermatitis b/l LE's. HEENT AT/NC, moist oral mucosa. Neck is supple with no adenopathy. Lungs are clear. Heart regular rhythm with no murmur. Abdomen is obese, soft, nontender with positive bowel sounds; suprapubic area with marked induration. Back no CVA tenderness; perirectal ulcerations. 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 Neuro is without focality. Results Last 24 Hours of Lab Results: Laboratory Tests 04/22 04/22 1045 0558 Hematology CBC w Diff NO MAN DIFF REQ WBC (4.8 - 10.8 /CUMM) 6.5 RBC (4.20 - 5.40 /CUMM) 3.49 L Hgb (12.0 - 16.0 G/DL) 9.1 L Hct (37 - 47 %) 28.8 L MCV (81.0 - 99.0 FL) 82.4 MCH (27.0 - 31.0 PG) 26.2 L MCHC (33.0 - 37.0 G/DL) 31.7 L RDW (11.5 - 14.5 %) 15.2 H Plt Count (130 - 400 /CUMM) 302 MPV (7.4 - 10.4 FL) 8.9 Gran % (42.2 - 75.2 %) 77.0 H Lymphocytes % (20.5 - 51.1 %) 14.5 L Monocytes % (1.7 - 9.3 %) 7.1 Eosinophils % (0 - 5 %) 0.8 Basophils % (0.0 - 2.0 %) 0.6 Absolute Granulocytes (1.4 - 6.5 /CUMM) 5.0 Absolute Lymphocytes (1.2 - 3.4 /CUMM) 0.9 L Absolute Monocytes (0.10 - 0.60 /CUMM) 0.5 Absolute Eosinophils (0.0 - 0.7 /CUMM) 0.1 Absolute Basophils (0.0 - 0.2 /CUMM) 0 Urines Urinalysis MOD H Urine Color (YEL,AMB,STR) YEL Urine Clarity (CLEAR) CLDY H Urine pH (5.0 - 8.0) >= 9.0 H Ur Specific [place] (1.001 - 1.035) 1.010 Urine Protein (NEG,<30 MG/DL) 30 H Urine Ketones (NEG) NEG Urine Nitrite (NEG) NEG Urine Bilirubin (NEG) NEG Urine Urobilinogen (0.1 - 1.0 EU/dl) 0.2 Ur Leukocyte Esterase (NEG) SMALL H Ur Microscopic SEDIMENT EXAMINED Urine RBC (0 - 5 /HPF) 1-3 Urine WBC (0 - 2 /HPF) 1-3 H Ur Epithelial Cells (NONE,FEW) FEW Urine Crystals 1+ TRIP PHOS H Urine Bacteria (NEG/NONE) MANY H Urine Mucus (FEW,NONE) FEW Micro UA Comment BUDDING YEAST H Urine Hemoglobin (NEG) NEG Urine Glucose (N MG/DL) NEG Last 24 Hours of Braulio Results: reviewed Recent Imaging Studies: reviewed Assessment/Plan ID Impression: This is a 66-year-old woman with a history of dementia, diabetes and peripheral vascular disease, with a right foot plantar ulcer of unknown duration, recently begun on Vancomycin for a positive wound culture for MRSA, with no further details available, admitted on April 18 for debridement of the soft tissues of the right mid foot and right heel, which was performed on the day of admission, with no evidence for bone exposure, and with temperatures and white blood cell count normal. Evaluated for right foot OM; local culture + Enterobacter/Proteus. She is felt by Podiatry to have a Charcot foot, which could mimic osteomyelitis on x-ray and MRI; therefore she would likely require a bone biopsy if the diagnosis of osteomyelitis is to be pursued. As temperatures and white blood cell count normal, patient observed off antibiotics pending further evaluation. The erythema and edema of both lower extremities appear to be chronic and likely secondary to venous stasis disease. Pyuria/asymptomatic UTI Suggestion: 1. Obtain MRI of the right foot eval OM(of note ESTR elevated>130) 2. Bone biopsy of the right foot early next week (once she has been off antibiotics for at least 72 hours) 3. Followed off antibiotics pending above; call if fever; hypotensive; increased erythema R LE. 4. F/U podiatry recom Call if questions [phone].
[2017-04-22 22:54] VITALS: BP 190/80
[2017-04-23 06:27] VITALS: BP 180/90
--- NOTE | 2017-04-23 07:04 | PN- Housestaff ---
Libby SUAREZ,Tyrel 04/23/17 0703: Subjective Follow-up For: wound infection /charcot foot Subjective: Patient was seen and examined at bedside. She was resting comfortably. She had no acute events overnight. She states that she is currently not on any pain. She denies any fever, chills, nausea, vomiting, chest pain, shortness of breath. Rest of review of systems as below. Review of Systems Constitutional: Denies: chills, diaphoresis, fever. EENTM: Reports: no symptoms. Cardiovascular: Reports: no symptoms. Respiratory: Reports: no symptoms. Gastrointestinal: Reports: no symptoms. Genitourinary: Reports: no symptoms. Musculoskeletal: Reports: no symptoms. Skin: Reports: no symptoms. Objective Last 24 Hrs of Vital Signs/I&O Vital Signs Date Time Temp Pulse Resp B/P B/P Pulse O2 O2 Flow FiO2 Mean Ox Delivery Rate 04/23 626 99.5 77 20 180/90 96 Room Air 04/22 2254 98.8 74 18 190/80 92 04/22 1501 98.1 76 19 180/82 96 Room Air 04/22 1030 84 184/82 04/22 0709 98.1 72 18 182/62 96 Intake & Output 04/23 0800 04/23 0000 04/22 1600 Intake Total 50 220 600 Output Total 500 1000 Balance 50 -280 -400 Intake, Oral 50 220 600 Number 3 1 Bowel Movements Output, Urine 500 1000 Physical Exam General Appearance: Alert, Cooperative, No Acute Distress, oriented to person, knows she is in a hospital but cannot provide the name, does not know the month, year, or current president, per nurse this is her baseline Skin Temp/Moisture Exam: Warm/Dry Sepsis Skin Exam (color): Normal for Ethnicity Cardiovascular: Regular Rate, Normal S1, Normal S2, No Murmurs Lungs: mildly diminished breath sounds secondary to body habitus Abdomen: Normal Bowel Sounds, Soft, No Tenderness, obese Neurological: Normal Speech, Normal Tone, Sensation Intact Extremities: lychenification of the distal LEs and distal pitting edema, L foot plantar ulcer, R foot currently dressed with GURVINDER, distal LEs TTP bilaterally Current Medications: Current Medications Sig/Terese Start time Last Medication Dose Route Stop Time Status Admin Acetaminophen 650 MG Q4P PRN 04/19 1400 AC 04/19 PO 1359 Aspirin 81 MG DAILY 04/19 1132 AC 04/23 PO 0739 Atorvastatin Calcium 80 MG 1700 04/19 1700 AC 04/22 PO 1842 Clopidogrel Bisulfate 75 MG DAILY 04/19 1132 AC 04/23 PO 0739 Dextrose/Sodium 1,000 ML Q20H 04/23 1245 AC 04/23 Chloride IV 1241 Dextrose/Sodium 1,000 ML Q13H 04/23 0845 DC 04/23 Chloride IV 0909 Ferrous Sulfate 325 MG DAILY 04/20 1839 AC 04/23 PO 0739 Fluticasone 2 SPRAY DAILY 04/19 1000 AC 04/23 Propionate KARI 0739 Heparin Sodium 5,000 UNIT Q8 04/18 2200 AC 04/23 (Porcine) SC 0536 Hydralazine HCl 10 MG ONCE ONE 04/23 1230 DC 04/23 PO 04/23 1231 1240 Hydrochlorothiazide 25 MG DAILY 04/22 1000 AC 04/23 PO 0739 Hydrocodone Bitart/ 1 TAB Q6P PRN 04/19 1400 AC 04/19 Acetaminophen PO 2319 Insulin Aspart 0 TIDAC 04/19 0800 AR 04/22 NV 04/22 2300 1249 Insulin Detemir 10 UNITS ONCE ONE 04/22 2200 AR 04/22 NV 04/22 2201 2226 Insulin Detemir 20 UNITS BID 04/22 1000 AR 04/22 NV 1035 Insulin Human Regular 0 Q6 04/23 0600 04/23 NV 1240 Lisinopril 40 MG DAILY 04/22 1000 04/23 PO 0739 Memantine 10 MG QPM 04/18 2200 AC 04/22 PO 2225 Non-Formulary 0 SEE ADMIN CRITERIA 04/23 1330 UNVr Medication ANY Omeprazole 20 MG DAILY AC 04/19 0700 AC 04/23 PO 0537 Ondansetron HCl 4 MG Q6P PRN 04/22 1300 AC IV Zinc Oxide 1 MUKESH BID 04/22 2200 AC 04/23 TOP 0740 Last 24 Hrs of Lab/Braulio Results Last 24 Hrs of Labs/Mics: Laboratory Tests 04/22/17 1045: Urinalysis MOD H, Urine Color YEL, Urine Clarity CLDY H, Urine pH >= 9.0 H, Ur Specific [place] 1.010, Urine Protein 30 H, Urine Ketones NEG, Urine Nitrite NEG, Urine Bilirubin NEG, Urine Urobilinogen 0.2, Ur Leukocyte Esterase SMALL H , Ur Microscopic SEDIMENT EXAMINED, Urine RBC 1-3, Urine WBC 1-3 H, Ur Epithelial Cells FEW, Urine Crystals 1+ TRIP PHOS H, Urine Bacteria MANY H, Urine Mucus FEW, Micro UA Comment BUDDING YEAST H, Urine Hemoglobin NEG, Urine Glucose NEG Microbiology 04/22 1045 URINE ROUT: Urine Culture - RECD Assessment/Plan Assessment: Patient is a 66-year-old female with a PMH significant for vulvar carcinoma, depression and anxiety, diabetes mellitus, osteomyelitis, severe peripheral vascular disease with previous left foot cellulitis and right foot third digit amputation who was referred to [facility] by podiatry for debridement of right heel. #Wound infection and possible osteomyelitis Postop day #5 of initial debridement patient has been stable and currently being washed off of antibiotics per ID and podiatry recommendations. Is currently afebrile with normal WBC count. Will forego MRI pending results of trip to OR today for debridement and bone biopsy. Patient is nonweightbearing pending further podiatry recommendations. -Nothing by mouth for OR this afternoon -Continue adequate pain management -Follow-up OR pathology specimens #DM -Patient switched to Novolin nothing by mouth sliding scale -D5 half-normal saline - Holding Levemir while on by mouth #HTN Patient has been hypertensive since admission, the criteria for hypertensive urgency this morning. Was treated with hydralazine -Continue hydrochlorothiazide and lisinopril -Monitor for renal function #Gluteal ulcer -We'll start Santyl per wound care -If no improvement by tomorrow will order Clinitron mattress #Chronic medical problems including PVD, dementia -Continue medications Nothing by mouth for or this afternoon, will restart diabetic diet postoperatively DVT prophylaxis: Subcutaneous heparin CODE STATUS: Full code Problem List: 1. Wound infection 2. Osteomyelitis Pain Ratin Pain Location: pain well controlled at rest, but distal LEs bilaterally TTP Pain Goal: Pain 4 or less Pain Plan: pain pathway Tomorrow's Labs & Rationales: cbc, bep Jos Cano MD 04/23/17 1424: Attending MD Review Statement Attending Statement Attending MD Statement: examined this patient, discuss w/resident/PA/ACO COORDINATOR, agreed w/resident/PA/ACO COORDINATOR, reviewed EMR data (avail) Attending Assessment/Plan: 66F PMH depression/anxiety, diabetes, and h/o osteomyelitis, severe peripheral vascular disease with left foot cellulitis and right foot third digit amputation is being admitted for suspected osteomyelitis, went to OR on 04/18 for debridement, now doing well and hemodynamically stable with normal WBC and afebrile. Doing well today, no complaints. BP elevated 200/88, given Hydralazine. Plan - Continue on general medicine - Follow ID and podiatry recommendations - Off antibiotics for now - Follow cultures - Will return to OR on 04/23 - Continue home medications - DVT PPx
[2017-04-23 12:05] VITALS: BP 200/90
[2017-04-23 13:39] VITALS: BP 188/90
--- NOTE | 2017-04-23 14:11 | PN- Infect Dx ---
Subjective Subjective: No fever, comfortable; OR later this afternoon Review of Systems Comments: 12 points reviewed as noted, otherwise negative. Objective Last 24 Hrs of Vital Signs/I&O Vital Signs Date Time Temp Pulse Resp B/P B/P Pulse O2 O2 Flow FiO2 Mean Ox Delivery Rate 04/23 1339 98.4 75 18 188/90 97 Room Air 04/23 1240 76 200/90 04/23 1205 76 200/90 04/23 0739 77 182/92 04/23 0627 99.5 77 20 180/90 96 Room Air 04/22 2254 98.8 74 18 190/80 92 04/22 1501 98.1 76 19 180/82 96 Room Air Intake & Output 04/23 1600 04/23 0800 04/23 0000 Intake Total 50 220 Output Total 500 Balance 50 -280 Intake, Oral 50 220 Number 3 1 Bowel Movements Output, Urine 500 Physical Exam Other Physical Findings: Afebrile. She is awake and alert, in no acute distress. Skin stasis dermatitis b/l LE's. HEENT AT/NC, moist oral mucosa. Neck is supple with no adenopathy. Lungs are clear. Heart regular rhythm with no murmur. Abdomen is obese, soft, nontender with positive bowel sounds; suprapubic area with marked induration. Back no CVA tenderness; perirectal ulcerations. 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 Neuro is without focality. Results Last 24 Hours of Lab Results: reviewed Last 24 Hours of Braulio Results: SPEC #: [id number] LEO: 04/22/171045 STATUS: RES RECD: 04/22/17-[address]: Johan Bhatia MD SOURCE: URINE ROUT ENTR: 04/22/17-[address]: Jos Cano [facility] Patient Has No Primary Care Nickolas Hernandez DPM ORDERED: URINE CULTURE Procedure Result > URINE CULTURE Preliminary 04/23/17-1156 Greater than 100,000 colonies per ml of: GRAM NEGATIVE RODS Identification and susceptibilities to follow Recent Imaging Studies: reviewed Assessment/Plan ID Impression: 66-year-old woman with a history of dementia, diabetes and peripheral vascular disease, with a right foot plantar ulcer of unknown duration, recently begun on Vancomycin for a positive wound culture for MRSA, with no further details available, admitted on April 18 for debridement of the soft tissues of the right mid foot and right heel, which was performed on the day of admission, with no evidence for bone exposure. Evaluated for right foot OM; local R foot ulcer culture + Enterobacter/Proteus. She is felt by Podiatry to have a Charcot foot, which could mimic osteomyelitis on x-ray and MRI; therefore she would likely require a bone biopsy if the diagnosis of osteomyelitis is to be pursued. Afebrile with normal WBC count. Per team will forego MRI pending results of OR cultures and bone biopsy planned for today. Asymptomatic bacteriuria (GNR) Suggestion: 1. Followed off antibiotics pending above. 2. F/U podiatry recom 3. Follow-up OR cx pathology specimen reports.
[2017-04-23 14:52] VITALS: BP 170/84
--- NOTE | 2017-04-23 19:37 | Operative Report ---
Operative/Inv Procedure Report Surgery Date: 04/23/17 Name of Procedure: I&D right foot, debridement of right midfoot wound w/bone biopsy. Pre-Operative Diagnosis: Charcot neuroarthropathy, right foot with infected midfoot wound. Post-Operative Diagnosis: Charcot neuroarthropathy, right foot with infected midfoot wound. Estimated Blood Loss: scant Surgeon/Railroad Design Consultant: Nickolas Uribe DPM Anesthesia: local monitored anesthesi (20cc 1:1 2%Lido/0.5%Bupiv pln ) Specimens: Bone biopsy, right foot for pathology Microbiology: None Tourniquet: None Complications: None Condition: Stable Operative Indication: Revisional washout and I&D w/VAC application for accelerated healing. Operative/Procedure Note Note: The right foot was prepped and draped up to the ankle in the usual sterile fashion with Betadine solution and attention was directed to the plantar aspect of the right midfoot, where a 3 cm x 2.5 cm x 1.8 cm fibro-granular wound was identified. Excisional debridement was carried out onto this wound and a small distal tunnel was found with a hard endpoint. A rongeur specimen was taken from the base of this tunnel and a small piece of bone was excised from it, which was sent for a bone biopsy. The wound was then pulse irrigated with a 3 L combination of bacitracin solution and normal saline. Compression was applied to the wound until there was no more capillary oozing. Using standard technique a granufoam VAC dressing was applied to the wound with a confirmed seal, 125 mmHg continuous pressure medium intensity. The foot was then dressed in multiple ABD pads to protect the additional stage II decubitus lesion posterior to this and was dressed with a dry Kerlix and a 4 inch Rohit bandage while protecting the VAC tubing from the skin on the medial side of the foot and ankle. Discharge Disposition: PACU Additional Comments: The patient was escorted to the postanesthesia care unit in no apparent distress , afebrile, vital signs stable, neurovascular status intact to all 5 digits on the operative foot. The VAC dressing is to remain on for a minimum of 2 days. The patient is to remain nonweightbearing, as the offloading without antibiotics has resolved almost all of her edema and erythema and has healed the wound by approximately 5 mm in each dimension. We will follow the results of the bone biopsy. Patient may remain off antibiotics for now she has gradually improved during the admission without them. Final recommendations will be made to the case filler on .
[2017-04-23 22:24] VITALS: BP 154/80
--- NOTE | 2017-04-24 07:11 | PN- Housestaff ---
See Addendum Libby SUAREZ,Tyrel 04/24/17 0710: Subjective Follow-up For: Right foot infection Charcot foot Postmenopausal Vaginal bleeding Subjective: Patient seen and examined at bedside. She was resting comfortably. Overnight she passed a blood clot vaginally, at that time she was asymptomatic with no signs of hemodynamic instability. Upon questioning the patient this morning she does not recall this event and remains asymptomatic. She currently has no complaints but states that her right foot is sensitive to touch and pressure in his having discomfort with the bed covers. She denies any chest pain, shortness of breath, lightheadedness, dizziness, nausea, vomiting, fever, chills. Rest of review of systems as below. Review of Systems Constitutional: Denies: chills, fever, malaise. Cardiovascular: Denies: chest pain, palpitations. Respiratory: Denies: cough, short of breath. Gastrointestinal: Reports: no symptoms. Genitourinary: Reports: no symptoms. Musculoskeletal: Reports: no symptoms. Objective Last 24 Hrs of Vital Signs/I&O Vital Signs Date Time Temp Pulse Resp B/P B/P Pulse O2 O2 Flow FiO2 Mean Ox Delivery Rate 04/23 2224 97.7 73 18 154/80 97 Room Air 04/23 1700 76 170/84 04/23 1452 170/84 04/23 1339 98.4 75 18 188/90 97 Room Air 04/23 1240 76 200/90 04/23 1205 76 200/90 04/23 0739 77 182/92 Intake & Output 04/24 0800 04/24 0000 04/23 1600 Intake Total 240 450 350 Output Total Balance 240 450 350 Intake, IV 250 300 Intake, Oral 240 200 50 Number 1 2 1 Bowel Movements Physical Exam General Appearance: Alert, Cooperative, No Acute Distress, oriented to person, is a aware we are in a hospital but does not know the name Skin Temp/Moisture Exam: Warm/Dry Sepsis Skin Exam (color): Normal for Ethnicity Cardiovascular: Regular Rate, Normal S1, Normal S2 Lungs: Clear to Auscultation, Normal Air Movement Abdomen: Normal Bowel Sounds, Soft, mild hypogastric discomfort with palpation Neurological: Normal Speech, Sensation Intact Extremities: hyperkeratotic skin on the distal LEs with TTP, distal LE edema improved, R foot dressed and wound vac in place Reproductive (FEMALE) andria blood slowly draining from the vagina Current Medications: Current Medications Sig/Terese Start time Last Medication Dose Route Stop Time Status Admin Acetaminophen 650 MG Q4P PRN 04/19 1400 AC 04/19 PO 1359 Aspirin 81 MG DAILY 04/19 1132 AC 04/23 PO 0739 Atorvastatin Calcium 80 MG 1700 04/19 1700 AC 04/23 PO 2145 Clopidogrel Bisulfate 75 MG DAILY 04/19 1132 AC 04/23 PO 0739 Collagenase See Dose DAILY 04/23 1330 AC 04/23 Insts (1) TOP 1428 Dextrose/Sodium 1,000 ML Q20H 04/23 1245 DC 04/23 Chloride IV 1241 Dextrose/Sodium 1,000 ML Q13H 04/23 0845 DC 04/23 Chloride IV 0909 Fentanyl Citrate 100 MCG .STK-MED ONE 04/23 1448 DC IM 04/23 1449 Ferrous Sulfate 325 MG DAILY 04/20 1839 AC 04/23 PO 0739 Fluticasone 2 SPRAY DAILY 04/19 1000 AC 04/23 Propionate KARI 0739 Heparin Sodium 5,000 UNIT Q8 04/18 2200 AC 04/24 (Porcine) SC 0526 Hydralazine HCl 5 MG ONCE ONE 04/23 1500 DC 04/23 PO 04/23 1501 1700 Hydralazine HCl 10 MG ONCE ONE 04/23 1230 DC 04/23 PO 04/23 1231 1240 Hydrochlorothiazide 25 MG DAILY 04/22 1000 AC 04/23 PO 0739 Hydrocodone Bitart/ 1 TAB Q6P PRN 04/19 1400 AC 04/19 Acetaminophen PO 2319 Insulin Aspart 0 TIDAC 04/24 0800 AC SC Insulin Human Regular 0 Q6 04/23 0600 DC 04/23 SC 1735 Ketorolac 30 MG .STK-MED ONE 04/23 1449 DC Tromethamine IM 04/23 1450 Lisinopril 40 MG DAILY 04/22 1000 AC 04/23 PO 0739 Memantine 10 MG QPM 04/18 2200 AC 04/23 PO 2146 Midazolam HCl 2 MG .STK-MED ONE 04/23 1448 DC IM 04/23 1449 Non-Formulary 0 SEE ADMIN CRITERIA 04/23 1330 CAN Medication ANY Omeprazole 20 MG DAILY AC 04/19 0700 AC 04/24 PO 0526 Ondansetron HCl 4 MG Q6P PRN 04/22 1300 AC IV Potassium Chloride 40 MEQ ONCE ONE 04/23 2199 DC 04/23 PO 04/23 2201 2146 Zinc Oxide 1 MUKESH BID 04/22 2199 AC 04/23 TOP 2146 Dose Instructions: (1)Collagenase: APPLY Last 24 Hrs of Lab/Braulio Results Last 24 Hrs of Labs/Mics: Laboratory Tests 04/24/17 0600: Anion Gap 14, Estimated GFR 37 L, BUN/Creatinine Ratio 25.7 H 04/23/17 1400: Anion Gap 13, Estimated GFR 41 L, BUN/Creatinine Ratio 26.2 H Assessment/Plan Assessment: Patient is a 66-year-old female with a PMH significant for vulvar carcinoma, depression and anxiety, diabetes mellitus, osteomyelitis, severe peripheral vascular disease with previous left foot cellulitis and right foot third digit amputation who was referred to [facility] by podiatry for debridement of right heel. #New onset postmenopausal bleeding Overnight pt passed a clot vaginally per the night team. Today there was andria blood coming from her vagina on exam. She has had intermittent episodes of vaginal bleeding throughout the day. Her H/H has remained stable. -Communications Tower Technician consult was placed and the case was discussed with Dr. Small at bedside, he will see patient again tomorrow after old records from [place] are received, patient is unable tro provide history about her previous vulvar malignancy -repeat H/H, consider tranfusion with a goal of hgb of 7 -patient was unable to tolerate transvaginal US secondary to discomfort #UTI Urine culture growing proteus. Althoug patient is disortiented at baseline it is possible she is suffering from decreased mentation secondary to UTI, she is afebrile and there is no leukocytosis. She has mild hypogastric discomfort with palpation on exam. - will give ceftriaxone 1 g once, per discussion with Dr. Green, JASMIN. #Wound infection and possible osteomyelitis Postop day #1 of repeat debridement patient has been stable and currently being washed off of antibiotics per ID and podiatry recommendations. Is currently afebrile with normal WBC count. Will forego MRI pending results of trip to OR today for debridement and bone biopsy. Patient is nonweightbearing pending further podiatry recommendations. -Continue adequate pain management -Follow-up OR pathology specimens #DM -Patient restarted on Novolog sliding scale - resume levemir 20 units BID -monitor FSGs #HTN BP better controlled today -Continue hydrochlorothiazide and lisinopril -Monitor for renal function #BHAVIN vs CKD -Cr has remained stable between 1.3-1.4 for the past 3 days, her baseline is unknown, awaiting records from [place]. #Gluteal ulcer -Continue Santyl per wound care -will reconsult wound care about need for clinitron mattress #Chronic medical problems including PVD, dementia -Continue home medications Diabetic diet DVT prophylaxis: Subcutaneous heparin CODE STATUS: Full code Problem List: 1. Wound infection 2. Hypokalemia 3. Postmenopausal vaginal bleeding 4. UTI (urinary tract infection) Pain Ratin Pain Location: R foot TTP but pain well controlled at rest Pain Goal: Remain pain free Pain Plan: pain pathway Tomorrow's Labs & Rationales: cbc, bep Jos Cano MD 04/24/17 1016: Attending MD Review Statement Attending Statement Attending MD Statement: examined this patient, discuss w/resident/PA/LOWERATOR OPERATOR, agreed w/resident/PA/LOWERATOR OPERATOR, reviewed EMR data (avail) Attending Assessment/Plan: 66F PMH depression/anxiety, diabetes, and h/o osteomyelitis, severe peripheral vascular disease with left foot cellulitis and right foot third digit amputation is being admitted for suspected osteomyelitis, went to OR on 04/18 for debridement and again on 04/23 for revision and vac placement. Doing well today, passed a vaginal clot overnight. Bone biopsy cultures NGTD. Plan - Continue on general medicine - Follow ID and podiatry recommendations - Off antibiotics for now - Follow cultures - Continue home medications - DVT PPx
[2017-04-24 07:23] VITALS: BP 148/76
[2017-04-24 08:13] VITALS: BP 166/82
--- NOTE | 2017-04-24 08:17 | PN- Podiatry ---
Subjective Subjective: Patient is seen and evaluated at bedside in no apparent distress. Patient had revisional debridement of the right midfoot wound with bone biopsy and application of a wound VAC. Review of Systems: A 14 point review of systems was performed, and was found to be negative apart from the patient's complaints described above in the history of present illness. Objective Vital Signs and I&Os Vital Signs Date Time Temp Pulse Resp B/P B/P Pulse O2 O2 Flow FiO2 Mean Ox Delivery Rate 04/24 0723 97.9 73 18 148/76 94 04/23 2224 97.7 73 18 154/80 97 Room Air 04/23 1700 76 170/84 04/23 1452 170/84 04/23 1339 98.4 75 18 188/90 97 Room Air 04/23 1240 76 200/90 04/23 1205 76 200/90 Intake & Output 04/24 1600 04/24 0800 04/24 0000 04/23 1600 04/23 0800 04/23 0000 Intake Total 240 450 350 50 220 Output Total 500 Balance 240 450 350 50 -280 Intake, IV 250 300 Intake, Oral 240 200 50 50 220 Number 1 2 1 3 1 Bowel Movements Output, Urine 500 Physical Exam: Right lower extremity dressing is clean dry and intact vac has an intact seal and fewer than 50 mL drainage in the canister. Neurovascular examination is unchanged. Musculoskeletal examination is unchanged. Underneath the left first metatarsal head there is a dry eschar. Current Medications: Current Medications Sig/Terese Start time Last Medication Dose Route Stop Time Status Admin Acetaminophen 650 MG Q4P PRN 04/19 1400 AC 04/19 PO 1359 Aspirin 81 MG DAILY 04/19 1132 AC 04/23 PO 0739 Atorvastatin Calcium 80 MG 1700 04/19 1700 AC 04/23 PO 2145 Clopidogrel Bisulfate 75 MG DAILY 04/19 1132 AC 04/23 PO 0739 Collagenase See Dose DAILY 04/23 1330 AC 04/23 Insts (1) TOP 1428 Dextrose/Sodium 1,000 ML Q20H 04/23 1245 DC 04/23 Chloride IV 1241 Dextrose/Sodium 1,000 ML Q13H 04/23 0845 DC 04/23 Chloride IV 0909 Fentanyl Citrate 100 MCG .STK-MED ONE 04/23 1448 DC IM 04/23 1449 Ferrous Sulfate 325 MG DAILY 04/20 1839 AC 04/23 PO 0739 Fluticasone 2 SPRAY DAILY 04/19 1000 AC 04/23 Propionate KARI 0739 Heparin Sodium 5,000 UNIT Q8 04/18 2200 AC 04/24 (Porcine) SC 0526 Hydralazine HCl 5 MG ONCE ONE 04/23 1500 DC 04/23 PO 04/23 1501 1700 Hydralazine HCl 10 MG ONCE ONE 04/23 1230 DC 04/23 PO 04/23 1231 1240 Hydrochlorothiazide 25 MG DAILY 04/22 1000 AC 04/23 PO 0739 Hydrocodone Bitart/ 1 TAB Q6P PRN 04/19 1400 AC 04/19 Acetaminophen PO 2319 Insulin Aspart 0 TIDAC 04/24 0800 AC SC Insulin Human Regular 0 Q6 04/23 0600 DC 04/23 SC 1735 Ketorolac 30 MG .STK-MED ONE 04/23 1449 DC Tromethamine IM 04/23 1450 Lisinopril 40 MG DAILY 04/22 1000 AC 04/23 PO 0739 Memantine 10 MG QPM 04/18 2200 AC 04/23 PO 2146 Midazolam HCl 2 MG .STK-MED ONE 04/23 1448 DC IM 04/23 1449 Non-Formulary 0 SEE ADMIN CRITERIA 04/23 1330 CAN Medication ANY Omeprazole 20 MG DAILY AC 04/19 0700 AC 04/24 PO 0526 Ondansetron HCl 4 MG Q6P PRN 04/22 1300 AC IV Potassium Chloride 40 MEQ ONCE ONE 04/24 1400 UNVr PO 04/24 1401 Potassium Chloride 40 MEQ ONCE ONE 04/24 0815 UNVr PO 04/24 0816 Potassium Chloride 40 MEQ ONCE ONE 04/23 2200 DC 04/23 PO 04/23 2201 2146 Zinc Oxide 1 MUKESH BID 04/22 2200 AC 04/23 TOP 2146 Dose Instructions: (1)Collagenase: APPLY Results Last 48 Hours of Labs: Laboratory Tests 04/24 04/23 04/22 0600 1400 1045 Chemistry Sodium (137 - 145 mmol/L) 143 140 Potassium (3.5 - 5.1 mmol/L) 3.3 L 3.1 L Chloride (98 - 107 mmol/L) 102 98 Carbon Dioxide (22 - 30 mmol/L) 27 29 Anion Gap (5 - 16) 14 13 BUN (7 - 17 mg/dL) 36 H 34 H Creatinine (0.5 - 1.0 mg/dL) 1.4 H 1.3 H Estimated GFR (>60 ml/min) 37 L 41 L BUN/Creatinine Ratio (7 - 25 %) 25.7 H 26.2 H Urines Urinalysis MOD H Urine Color (YEL,AMB,STR) YEL Urine Clarity (CLEAR) CLDY H Urine pH (5.0 - 8.0) >= 9.0 H Ur Specific [place] (1.001 - 1.035) 1.010 Urine Protein (NEG,<30 MG/DL) 30 H Urine Ketones (NEG) NEG Urine Nitrite (NEG) NEG Urine Bilirubin (NEG) NEG Urine Urobilinogen (0.1 - 1.0 EU/dl) 0.2 Ur Leukocyte Esterase (NEG) SMALL H Ur Microscopic SEDIMENT EXAMINED Urine RBC (0 - 5 /HPF) 1-3 Urine WBC (0 - 2 /HPF) 1-3 H Ur Epithelial Cells (NONE,FEW) FEW Urine Crystals 1+ TRIP PHOS H Urine Bacteria (NEG/NONE) MANY H Urine Mucus (FEW,NONE) FEW Micro UA Comment BUDDING YEAST H Urine Hemoglobin (NEG) NEG Urine Glucose (N MG/DL) NEG Assessment/Plan Assessment/Plan 66-year-old female status post wound debridement and wound VAC application of the right midfoot, with stage II decubitus lesion of the right heel, with dry eschar underneath the left first metatarsal head. The patient was seen and evaluated at bedside The patient continues to improve off antibiotics, and I have increasing reason to believe that the majority of her abnormal lab values and clinical appearance is secondary to acute Charcot neuroarthropathy. We will follow the bone biopsy from yesterday's procedure to confirm this. Pending final infectious disease recommendations, the patient is clear to be discharged and transferred back to her long-term or to a facility that can sustain a wound VAC for a period of at least 3 months. Her final wound care recommendations are as follows: 1 - for the right midfoot wound, wound VAC changes every Saturday and Saturday at 125 mmHg continuous pressure medium intensity 2- for the stage II decubitus lesion of the right heel Betadine paint and a dry dressing every Saturday and Saturday with 2 pillows underneath the cast for proper offloading and prophylaxis 3- for the eschar underneath the left first metatarsal head Betadine paint every other day If the patient is cleared for discharge by the primary team, she is to follow-up in the wound care center this coming Saturday morning and on a weekly basis thereafter until her wounds are resolved. Further prophylaxis will be considered given her comorbidities after that point. She is to remain nonweightbearing, especially in the right foot until further notice. This case has been discussed with the primary team, the infectious disease healthcare economics consultant, and case management. I'm available for further discussion at [phone].
[2017-04-24 08:24] LABS: ABSOLUTE BASOPHIL COUNT 0 /CUMM (0.0-0.2); ABSOLUTE EOSINOPHIL COUNT 0.2 /CUMM (0.0-0.7); ABSOLUTE GRANULOCYTE CT 5.1 /CUMM (1.4-6.5); ABSOLUTE LYMPH COUNT 1.2 /CUMM (1.2-3.4); ABSOLUTE MONOCYTE COUNT 0.6 /CUMM (0.10-0.60); BASOPHIL % 0.4 % (0.0-2.0); EOSINOPHIL % 2.5 % (0-5); GRANULOCYTE % 71.7 % (42.2-75.2); HEMATOCRIT 28.9 % (37-47); MEAN CORPUSCULAR HGB 26.8 PG (27.0-31.0); MEAN CORPUSCULAR HGB CONC 32.5 G/DL (33.0-37.0); MEAN CORPUSCULAR VOLUME 82.3 FL (81.0-99.0); PLATELET COUNT 277 /CUMM (130-400); RBC DISTRIBUTION WIDTH 14.9 % (11.5-14.5); RED BLOOD CELL CT 3.51 /CUMM (4.20-5.40); WHITE BLOOD CELL COUNT 7.1 /CUMM (4.8-10.8)
--- NOTE | 2017-04-24 11:59 | ULTRASOUND REPORT ---
EXAMINATION: US PELVIC MASS DIAGNOSIS CLINICAL INFORMATION: Postmenopausal bleeding. History of vulvar cancer. COMPARISON: None TECHNIQUE: Transabdominal examination was performed. The patient declined transvaginal examination. FINDINGS: Per technologist note, the study was extremely limited due to patient pain. The images provided are nondiagnostic. IMPRESSION: Nondiagnostic, transabdominal examination.
--- NOTE | 2017-04-24 13:28 | PN- Infect Dx ---
Subjective Subjective: No fever; local discomfort R foot; post menopausal vag bleeding overnight associated w/ severe abd pain. Per RN question of small amount of stool from vagina/ raising the question of fistula. Increased confusion. Review of Systems Comments: 12 points reviewed as noted, otherwise neg. Objective Last 24 Hrs of Vital Signs/I&O Vital Signs Date Time Temp Pulse Resp B/P B/P Pulse O2 O2 Flow FiO2 Mean Ox Delivery Rate 04/24 0944 78 142/76 04/24 0813 98.1 73 20 166/82 95 Room Air 04/24 0723 97.9 73 18 148/76 94 04/23 2224 97.7 73 18 154/80 97 Room Air 04/23 1700 76 170/84 04/23 1452 170/84 04/23 1339 98.4 75 18 188/90 97 Room Air Intake & Output 04/24 1600 04/24 0800 04/24 0000 Intake Total 240 450 Output Total Balance 240 450 Intake, IV 250 Intake, Oral 240 200 Number 1 2 Bowel Movements Physical Exam Other Physical Findings: Afebrile. She is awake and alert, in no acute distress. Skin stasis dermatitis b/l LE's. HEENT AT/NC, moist oral mucosa. Neck is supple with no adenopathy. Lungs are clear. Heart regular rhythm with no murmur. Abdomen is obese, soft, nontender with positive bowel sounds; suprapubic area with marked induration. Back no CVA tenderness; perirectal ulcerations. 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 Neuro confused Results Last 24 Hours of Lab Results: Laboratory Tests 04/24 04/23 0600 1400 Chemistry Sodium (137 - 145 mmol/L) 143 140 Potassium (3.5 - 5.1 mmol/L) 3.3 L 3.1 L Chloride (98 - 107 mmol/L) 102 98 Carbon Dioxide (22 - 30 mmol/L) 27 29 Anion Gap (5 - 16) 14 13 BUN (7 - 17 mg/dL) 36 H 34 H Creatinine (0.5 - 1.0 mg/dL) 1.4 H 1.3 H Estimated GFR (>60 ml/min) 37 L 41 L BUN/Creatinine Ratio (7 - 25 %) 25.7 H 26.2 H Hematology CBC w Diff NO MAN DIFF REQ WBC (4.8 - 10.8 /CUMM) 7.1 RBC (4.20 - 5.40 /CUMM) 3.51 L Hgb (12.0 - 16.0 G/DL) 9.4 L Hct (37 - 47 %) 28.9 L MCV (81.0 - 99.0 FL) 82.3 MCH (27.0 - 31.0 PG) 26.8 L MCHC (33.0 - 37.0 G/DL) 32.5 L RDW (11.5 - 14.5 %) 14.9 H Plt Count (130 - 400 /CUMM) 277 MPV (7.4 - 10.4 FL) 9.0 Gran % (42.2 - 75.2 %) 71.7 Lymphocytes % (20.5 - 51.1 %) 16.9 L Monocytes % (1.7 - 9.3 %) 8.5 Eosinophils % (0 - 5 %) 2.5 Basophils % (0.0 - 2.0 %) 0.4 Absolute Granulocytes (1.4 - 6.5 /CUMM) 5.1 Absolute Lymphocytes (1.2 - 3.4 /CUMM) 1.2 Absolute Monocytes (0.10 - 0.60 /CUMM) 0.6 Absolute Eosinophils (0.0 - 0.7 /CUMM) 0.2 Absolute Basophils (0.0 - 0.2 /CUMM) 0 Last 24 Hours of Braulio Results: SPEC #: [id number] LEO: 04/22/17 STATUS: COMP RECD: 04/22/17 [facility] DR: Johan Bhatia MD SOURCE: URINE ROUT ENTR: 04/22/[address]: Jerome SUAREZ,Jos SPDESC: URINE FOLE Patient Has No Primary Care Nickolas Hernandez DPM ORDERED: URINE CULTURE Procedure Result > URINE CULTURE Final 04/24/17 Greater than 100,000 colonies per ml of: PROTEUS MIRABILIS 1. PROTEUS MIRABILIS RX AB ------ -- AMPICILLIN S CEFAZOLIN S AMOXICILLIN/CLAVULINIC ACID S AMPICILLIN/SULBACTAM S CIPROFLOXACIN R GENTAMICIN S NITROFURANTOIN R TRIMETHOPRIM/SULFAMETHOXAZOLE R Note: Infectious Diseases Society of [place] Guidelines state that asymptomatic bacteriuria is not associated with any increase in morbidity or mortality in most patients and therefore treatment is usually not indicated unless patients are less than five years old, or about to undergo urological SPEC #: [id number] LEO: 04/18/17 STATUS: COMP RECD: 04/18/[address]: Bea Auguste SOURCE: EXTREMITIE ENTR: 04/18/[address]: Patient Has No Primary Care Dr RIOS: FOOT R ORDERED: XTRMOR COMMENT: SIX SMALL PIECES IF TISSUE IN A STERILE CUP ADDITIONAL INFORMATION: SOFT TISSUE REPORT TO DR CASTILLO DPM Procedure Result > GRAM STAIN Final 04/19/17-1004 WHITE BLOOD CELLS RARE GRAM NEGATIVE RODS FEW > EXTREMITIES OR SPECIMEN Final 04/21/17 Moderate growth of: 1.ENTEROBACTER CLOACAE 2.PROTEUS MIRABILIS Called to/Readback by VINCENT by [facility] 04/19/17 1004 E.cloacae P.mirabili RX AB RX AB ------ -- ------ -- AMPICILLIN R S CEFAZOLIN R S AMOX/CLAV AUGM R S AMP/SULB-UNASYN R S CEFOXITIN R CEFTAZIDIME S CEFTRIAXONE I CIPROFLOXACIN R R GENTAMICIN I S TRIMETH/SULFA S R 1. ENTEROBACTER CLOACAE RX AB ------ -- AMPICILLIN R CEFAZOLIN R AMOXICILLIN/CLAVULINIC ACID R AMPICILLIN/SULBACTAM R CEFOXITIN R CEFTAZIDIME S CEFTRIAXONE I CIPROFLOXACIN R GENTAMICIN I TRIMETHOPRIM/SULFAMETHOXAZOLE S 2. PROTEUS MIRABILIS RX AB ------ -- AMPICILLIN S CEFAZOLIN S AMOXICILLIN/CLAVULINIC ACID S AMPICILLIN/SULBACTAM S CIPROFLOXACIN R GENTAMICIN S TRIMETHOPRIM/SULFAMETHOXAZOLE R Assessment/Plan ID Impression: 66-year-old woman with a history of dementia, diabetes and peripheral vascular disease, with a right foot plantar ulcer of unknown duration, recently begun on Vancomycin for a positive wound culture for MRSA, with no further details available, admitted on April 18 for debridement of the soft tissues of the right mid foot and right heel, which was performed on the day of admission, with no evidence for bone exposure. Evaluated for right foot OM; local R foot ulcer culture + Enterobacter/Proteus. She is felt by Podiatry to have a Charcot foot, which could mimic osteomyelitis on x-ray and MRI; therefore she would likely require a bone biopsy if the diagnosis of osteomyelitis is to be pursued. Afebrile with normal WBC count. Per team will forego MRI pending results of OR cultures and bone biopsy on 04/23. No OR bone cx from 04/23; bone bx results pnd. MSC R/O UTI Postmenopausal vag bleeding/abd pain Suggestion: 1. Followed off antibiotics pending above bone bx results. 2. F/U podiatry recom; local wound vac 3. Consider CT abd/pelvis to eval anatomy if transvaginal US refused by the patient due to local discomfort.
--- NOTE | 2017-04-24 14:09 | PN- OBGYN ---
Surgical Brief Attending Note Brief Attending Note: Asked by Medical Team for evaluation of postmenopausal bleeding. Patient had one episode last night and today. HPI Multiple comorbidity and recent transfer from [facility] to Rehab facility and now to [facility]. Patient with osteomyelitis and underwent wound debridement. Of note portion of medical records comments on vulvar cancer. Patient is a poor history and markedly confused. Bedside evaluation vulva is indurated but no focal external breakdown. Was having an bowel movement at time of exam and appeared to have been coming from vagina as well. I will follow up in the am to assess patient. Hopefully full medical records are present. Vulvar cancer more common than vaginal. Radiation is less commonly used with the former and more with the latter. If was radiation and does have fistula than I will need to review care and mgmt with [facility]. At present patient is not having vaginal bleeding and does in my opinion not require acute Gynecological intervention. Contact precautions observed due to history of MRSA
[2017-04-24 14:52] VITALS: BP 158/72
[2017-04-24 17:10] LABS: ABSOLUTE BASOPHIL COUNT 0 /CUMM (0.0-0.2); ABSOLUTE EOSINOPHIL COUNT 0.2 /CUMM (0.0-0.7); ABSOLUTE GRANULOCYTE CT 7.2 /CUMM (1.4-6.5); ABSOLUTE LYMPH COUNT 1.3 /CUMM (1.2-3.4); ABSOLUTE MONOCYTE COUNT 0.7 /CUMM (0.10-0.60); BASOPHIL % 0.4 % (0.0-2.0); EOSINOPHIL % 1.7 % (0-5); GRANULOCYTE % 76.5 % (42.2-75.2); HEMATOCRIT 29.3 % (37-47); MEAN CORPUSCULAR HGB 26.6 PG (27.0-31.0); MEAN CORPUSCULAR HGB CONC 32.3 G/DL (33.0-37.0); MEAN CORPUSCULAR VOLUME 82.3 FL (81.0-99.0); MEAN PLATELET VOLUME 8.6 FL (7.4-10.4); PLATELET COUNT 291 /CUMM (130-400); RBC DISTRIBUTION WIDTH 15.2 % (11.5-14.5); RED BLOOD CELL CT 3.56 /CUMM (4.20-5.40); WHITE BLOOD CELL COUNT 9.4 /CUMM (4.8-10.8)
[2017-04-24 22:23] VITALS: BP 150/72
[2017-04-25 06:40] VITALS: BP 180/80
--- NOTE | 2017-04-25 07:08 | PN- Housestaff ---
Libby SUAREZ,Tyrel 04/25/17 0708: Subjective Follow-up For: Postmenopausal vaginal R foot infection, charcot foot Subjective: Patient was seen and examined at bedside. She is resting comfortably. Overnight nurse reports that she had scant amount of vaginal bleeding. Patient continues to have sensitivity in her distal lower extremities bilaterally. She otherwise has no new complaints. She denies any nausea, vomiting, fever, chills , dysuria. She remains incontinent of bowel and bladder. Problem per the nurse 's her bowel movements have become looser. Review of Systems Constitutional: Denies: chills, fever. EENTM: Reports: no symptoms. Cardiovascular: Denies: chest pain, palpitations. Respiratory: Denies: cough, short of breath. Gastrointestinal: Reports: diarrhea, bowel incontinence, changes in stool. Genitourinary: Reports: see HPI. Objective Last 24 Hrs of Vital Signs/I&O Vital Signs Date Time Temp Pulse Resp B/P B/P Pulse O2 O2 Flow FiO2 Mean Ox Delivery Rate 04/25 0640 99.1 73 20 180/80 93 Room Air 04/24 2223 98.2 80 20 150/72 96 Room Air 04/24 1452 98.2 80 20 158/72 97 Room Air 04/24 0944 78 142/76 04/24 0813 98.1 73 20 166/82 95 Room Air 04/24 0723 97.9 73 18 148/76 94 Intake & Output 04/25 0800 04/25 0000 04/24 1600 Intake Total 300 250 720 Output Total 0 0 Balance 300 250 720 Intake, IV 60 10 Intake, Oral 240 240 720 Number 2 2 11 Bowel Movements Output, 0 0 Drainage Physical Exam General Appearance: Alert, Cooperative, No Acute Distress, oriented to person but not place or time Skin Temp/Moisture Exam: Warm/Dry Sepsis Skin Exam (color): Normal for Ethnicity HEENT: Atraumatic, poor dentition Cardiovascular: Regular Rate, Normal S1, Normal S2 Lungs: Clear to Auscultation, Normal Air Movement Abdomen: Normal Bowel Sounds, Soft, mild discomfort with palpation of the hypogastric area Reproductive (FEMALE) firm, indurated vuvla, no active bleeding, minimal blood in lap pad placed in groin Current Medications: Current Medications Sig/Terese Start time Last Medication Dose Route Stop Time Status Admin Acetaminophen 650 MG Q4P PRN 04/19 1400 AC 04/19 PO 1359 Aspirin 81 MG DAILY 04/19 1132 AC 04/24 PO 0944 Atorvastatin Calcium 80 MG 1700 04/19 1700 AC 04/24 PO 1715 Ceftriaxone Sodium 1,000 MG ONCE ONE 04/24 1630 DC 04/24 IV 04/24 1631 1833 Clopidogrel Bisulfate 75 MG DAILY 04/19 1132 AC 04/24 PO 0944 Collagenase See Dose DAILY 04/23 1330 AC 04/24 Insts (1) TOP 0943 Ferrous Sulfate 325 MG DAILY 04/20 1839 AC 04/24 PO 0944 Fluticasone 2 SPRAY DAILY 04/19 1000 AC 04/24 Propionate KARI 0945 Heparin Sodium 5,000 UNIT Q8 04/18 2200 AC 04/25 (Porcine) SC 0615 Hydrochlorothiazide 25 MG DAILY 04/22 1000 AC 04/24 PO 0944 Hydrocodone Bitart/ 1 TAB Q6P PRN 04/19 1400 AC 04/24 Acetaminophen PO 2050 Insulin Aspart 0 TIDAC 04/24 0800 AC 04/24 SC 1715 Insulin Detemir 20 UNITS BID 04/24 2200 AC 04/24 SC 2049 Lisinopril 40 MG DAILY 04/22 1000 AC 04/24 PO 0944 Memantine 10 MG QPM 04/18 2200 AC 04/24 PO 2048 Omeprazole 20 MG DAILY AC 04/19 0700 AC 04/25 PO 0615 Ondansetron HCl 4 MG Q6P PRN 04/22 1300 AC IV Potassium Chloride 40 MEQ ONCE ONE 04/24 1400 DC 04/24 PO 04/24 1401 1344 Potassium Chloride 40 MEQ ONCE ONE 04/24 0815 DC 04/24 PO 04/24 0816 0944 Zinc Oxide 1 MUKESH BID 04/22 2200 AC 04/24 TOP 2050 Dose Instructions: (1)Collagenase: APPLY Last 24 Hrs of Lab/Braulio Results Last 24 Hrs of Labs/Mics: Laboratory Tests 04/25/17 0630: Sodium Pending, Potassium Pending, Chloride Pending, Carbon Dioxide Pending, Anion Gap Pending, BUN Pending, Creatinine Pending, BUN/Creatinine Ratio Pending , CBC w Diff Pending, WBC Pending, RBC Pending, Hgb Pending, Hct Pending, MCV Pending, MCH Pending, MCHC Pending, RDW Pending, Plt Count Pending, MPV Pending 04/24/17 1625: CBC w Diff NO MAN DIFF REQ, RBC 3.56 L, MCV 82.3, MCH 26.6 L, MCHC 32.3 L, RDW 15.2 H, MPV 8.6, Gran % 76.5 H, Lymphocytes % 14.0 L, Monocytes % 7.4, Eosinophils % 1.7, Basophils % 0.4, Absolute Granulocytes 7.2 H, Absolute Lymphocytes 1.3, Absolute Monocytes 0.7 H, Absolute Eosinophils 0.2, Absolute Basophils 0 Microbiology 04/24 1750 STOOL: Clostridium difficile Toxin A & B - RECD Assessment/Plan Assessment: Patient is a 66-year-old female with a PMH significant for vulvar carcinoma, depression and anxiety, diabetes mellitus, osteomyelitis, severe peripheral vascular disease with previous left foot cellulitis and right foot third digit amputation who was referred to [facility] by podiatry for debridement of right heel. patient is stable for DC today #New onset postmenopausal bleeding minimal bleeding reported overnight. No active bleeding on exam and very little blood seen on the lap pad placed in groin. - bookmaker's clerk recommendations appreciated - continue to trend H/H and assess for hemodynamic instability - per discussion with Dr. Small in light of no recent vaginal bleeding she may be discharged with outpatient follow up at [facility] at [place] #UTI Urine culture growing proteus. patient remains afebrile with new onset mild leukocytosis. She denies any urinary symptoms and is incontinent at baseline - appreciate ID recommendations - will require a total of 7 day course of IV ceftriaxone 1 g (currently day 2) #Wound infection and possible osteomyelitis Postop day # 2 of repeat debridement patient has been stable. currently afebrile with normal WBC count. Patient is nonweightbearing pending further podiatry recommendations. -Continue adequate pain management - Follow-up OR pathology specimens and culture -patient stable for discharge, will be sent with wound care instructions including wound Vacc #DM - Patient restarted on Novolog sliding scale - continue levemir 20 units BID -monitor FSGs #HTN -Continue hydrochlorothiazide and lisinopril -Monitor for renal function #BHAVIN -Records from [place] reviewed, this impaired renal function appears to be acute based on recent records #Gluteal ulcer, chronic -Continue Santyl per wound care -patient instructed to follow up at the wound care center on 04/30/17 #Chronic medical problems including PVD, dementia -Continue home medications #hypokalemia -repleted with oral potassium - instructed to recheck BEP as outpatient in on 04/29/17 #diarrhea, resolved -C. diff negative Diabetic diet DVT prophylaxis: Subcutaneous heparin CODE STATUS: Full code Problem List: 1. UTI (urinary tract infection) 2. Hypokalemia 3. Postmenopausal vaginal bleeding Pain Ratin Pain Location: none Pain Goal: Remain pain free Pain Plan: pain pathway Tomorrow's Labs & Rationales: cbc Discharge Plan Discharge Disposition: STR/NH Stable for Discharge? Yes Anticipated Discharge (Day): today If Discharged Today/In 24 Hrs: W-10/discharge paper done, DC summary done, CMR done Jos Cano MD 04/25/17 1354: Attending MD Review Statement Attending Statement Attending MD Statement: examined this patient, discuss w/resident/PA[employer], agreed w/resident/PA/[employer], reviewed EMR data (avail) Attending Assessment/Plan: 66F PMH depression/anxiety, diabetes, and h/o osteomyelitis, severe peripheral vascular disease with left foot cellulitis and right foot third digit amputation is being admitted for suspected osteomyelitis, went to OR on 04/18 for debridement and again on 04/23 for revision and vac placement. Plan - Stable for discharge to SNF - Non-weight bearing to affected foot - Outpatient follow up with podiatry and gynecology - Ceftriaxone for one week per ID - Continue home medications - DVT PPx
[2017-04-25 08:07] LABS: ABSOLUTE BASOPHIL COUNT 0 /CUMM (0.0-0.2); ABSOLUTE EOSINOPHIL COUNT 0.1 /CUMM (0.0-0.7); ABSOLUTE GRANULOCYTE CT 9.6 /CUMM (1.4-6.5); ABSOLUTE LYMPH COUNT 1.4 /CUMM (1.2-3.4); ABSOLUTE MONOCYTE COUNT 0.6 /CUMM (0.10-0.60); BASOPHIL % 0.1 % (0.0-2.0); EOSINOPHIL % 0.9 % (0-5); GRANULOCYTE % 81.9 % (42.2-75.2); HEMATOCRIT 28.5 % (37-47); MEAN CORPUSCULAR HGB 27.2 PG (27.0-31.0); MEAN CORPUSCULAR HGB CONC 33.2 G/DL (33.0-37.0); MEAN CORPUSCULAR VOLUME 82.1 FL (81.0-99.0); MEAN PLATELET VOLUME 8.7 FL (7.4-10.4); PLATELET COUNT 273 /CUMM (130-400); RBC DISTRIBUTION WIDTH 15.2 % (11.5-14.5); RED BLOOD CELL CT 3.47 /CUMM (4.20-5.40); WHITE BLOOD CELL COUNT 11.7 /CUMM (4.8-10.8)
[2017-04-25 10:42] VITALS: BP 144/74
--- NOTE | 2017-04-25 11:12 | PN- Podiatry ---
Subjective Subjective: Patient is seen and evaluated at bedside in no apparent distress. Patient had revisional debridement of the right midfoot wound with bone biopsy and application of a wound VAC 04/23/17. The patient is seen and evaluated at bedside in tandem with Dr. Womack and the nursing team Review of Systems: A 14 point review of systems was performed, and was found to be negative apart from the patient's complaints described above in the history of present illness. Objective Vital Signs and I&Os Vital Signs Date Time Temp Pulse Resp B/P B/P Pulse O2 O2 Flow FiO2 Mean Ox Delivery Rate 04/25 1042 144/74 04/25 0905 73 180/80 04/25 0640 99.1 73 20 180/80 93 Room Air 04/24 2223 98.2 80 20 150/72 96 Room Air 04/24 1452 98.2 80 20 158/72 97 Room Air Intake & Output 04/25 1600 04/25 0800 04/25 0000 04/24 1600 04/24 0800 04/24 0000 Intake Total 300 250 720 240 450 Output Total 0 0 Balance 300 250 720 240 450 Intake, IV 60 10 250 Intake, Oral 240 240 720 240 200 Number 2 2 11 1 2 Bowel Movements Output, 0 0 Drainage Physical Exam: The patient's neurovascular exam is unchanged from admission. The plantar midfoot wound on the right remains stable, with epithelializing marginal skin, a mostly granular base, no drainage, no capillary oozing, no malodor, and no new skin necrosis. The stage II decubitus lesion of the right heel is also epithelializing. The neuropathic lesion underneath the first metatarsal head on the left side has begun to epithelialize over and is now completely dry. There is no strikethrough on the dressings. There is minimal maceration of the surrounding skin. Current Medications: Current Medications Sig/Terese Start time Last Medication Dose Route Stop Time Status Admin Acetaminophen 650 MG Q4P PRN 04/19 1400 AC 04/19 PO 1359 Aspirin 81 MG DAILY 04/19 1132 AC 04/25 PO 0858 Atorvastatin Calcium 80 MG 1700 04/19 1700 AC 04/24 PO 1715 Ceftriaxone Sodium 1,000 MG ONCE ONE 04/24 1630 DC 04/24 IV 04/24 1631 1833 Clopidogrel Bisulfate 75 MG DAILY 04/19 1132 AC 04/25 PO 0904 Collagenase See Dose DAILY 04/23 1330 AC 04/25 Insts (1) TOP 0901 Ferrous Sulfate 325 MG DAILY 04/20 1839 AC 04/25 PO 0901 Fluticasone 2 SPRAY DAILY 04/19 1000 AC 04/25 Propionate KARI 0902 Heparin Sodium 5,000 UNIT Q8 04/18 220 AC 04/25 (Porcine) SC 0615 Hydrochlorothiazide 25 MG DAILY 04/22 1000 AC 04/25 PO 0903 Hydrocodone Bitart/ 1 TAB Q6P PRN 04/19 1400 AC 04/24 Acetaminophen PO 2049 Insulin Aspart 0 TIDAC 04/24 0800 AC 04/25 SC 0856 Insulin Detemir 20 UNITS BID 04/24 220 AC 04/25 SC 0903 Lisinopril 40 MG DAILY 04/22 1000 AC 04/25 PO 0905 Memantine 10 MG QPM 04/18 2199 AC 04/24 PO 2048 Omeprazole 20 MG DAILY AC 04/19 0700 AC 04/25 PO 0615 Ondansetron HCl 4 MG Q6P PRN 04/22 1300 AC IV Potassium Chloride 40 MEQ ONCE ONE 04/25 1045 DC PO 04/25 1046 Potassium Chloride 40 MEQ ONCE ONE 04/25 1045 DC PO 04/25 1046 Potassium Chloride 40 MEQ ONCE ONE 04/24 1400 DC 04/24 PO 04/24 1401 1344 Zinc Oxide 1 MUKESH BID 04/22 2199 AC 04/25 TOP 0900 Dose Instructions: (1)Collagenase: APPLY Results Last 48 Hours of Labs: Laboratory Tests 04/25 04/24 0630 1625 Chemistry Sodium (137 - 145 mmol/L) 144 Potassium (3.5 - 5.1 mmol/L) 3.3 L Chloride (98 - 107 mmol/L) 102 Carbon Dioxide (22 - 30 mmol/L) 28 Anion Gap (5 - 16) 14 BUN (7 - 17 mg/dL) 37 H Creatinine (0.5 - 1.0 mg/dL) 1.1 H Estimated GFR (>60 ml/min) 49 L BUN/Creatinine Ratio (7 - 25 %) 33.6 H Vitamin B12 (239 - 931 pg/mL) Pending Hematology CBC w Diff NO MAN DIFF REQ NO MAN DIFF REQ WBC (4.8 - 10.8 /CUMM) 11.7 H 9.4 RBC (4.20 - 5.40 /CUMM) 3.47 L 3.56 L Hgb (12.0 - 16.0 G/DL) 9.4 L 9.5 L Hct (37 - 47 %) 28.5 L 29.3 L MCV (81.0 - 99.0 FL) 82.1 82.3 MCH (27.0 - 31.0 PG) 27.2 26.6 L MCHC (33.0 - 37.0 G/DL) 33.2 32.3 L RDW (11.5 - 14.5 %) 15.2 H 15.2 H Plt Count (130 - 400 /CUMM) 273 291 MPV (7.4 - 10.4 FL) 8.7 8.6 Gran % (42.2 - 75.2 %) 81.9 H 76.5 H Lymphocytes % (20.5 - 51.1 %) 11.6 L 14.0 L Monocytes % (1.7 - 9.3 %) 5.5 7.4 Eosinophils % (0 - 5 %) 0.9 1.7 Basophils % (0.0 - 2.0 %) 0.1 0.4 Absolute Granulocytes (1.4 - 6.5 /CUMM) 9.6 H 7.2 H Absolute Lymphocytes (1.2 - 3.4 /CUMM) 1.4 1.3 Absolute Monocytes (0.10 - 0.60 /CUMM) 0.6 0.7 H Absolute Eosinophils (0.0 - 0.7 /CUMM) 0.1 0.2 Absolute Basophils (0.0 - 0.2 /CUMM) 0 0 04/24 04/23 0600 1400 Chemistry Sodium (137 - 145 mmol/L) 143 140 Potassium (3.5 - 5.1 mmol/L) 3.3 L 3.1 L Chloride (98 - 107 mmol/L) 102 98 Carbon Dioxide (22 - 30 mmol/L) 27 29 Anion Gap (5 - 16) 14 13 BUN (7 - 17 mg/dL) 36 H 34 H Creatinine (0.5 - 1.0 mg/dL) 1.4 H 1.3 H Estimated GFR (>60 ml/min) 37 L 41 L BUN/Creatinine Ratio (7 - 25 %) 25.7 H 26.2 H Hematology CBC w Diff NO MAN DIFF REQ WBC (4.8 - 10.8 /CUMM) 7.1 RBC (4.20 - 5.40 /CUMM) 3.51 L Hgb (12.0 - 16.0 G/DL) 9.4 L Hct (37 - 47 %) 28.9 L MCV (81.0 - 99.0 FL) 82.3 MCH (27.0 - 31.0 PG) 26.8 L MCHC (33.0 - 37.0 G/DL) 32.5 L RDW (11.5 - 14.5 %) 14.9 H Plt Count (130 - 400 /CUMM) 277 MPV (7.4 - 10.4 FL) 9.0 Gran % (42.2 - 75.2 %) 71.7 Lymphocytes % (20.5 - 51.1 %) 16.9 L Monocytes % (1.7 - 9.3 %) 8.5 Eosinophils % (0 - 5 %) 2.5 Basophils % (0.0 - 2.0 %) 0.4 Absolute Granulocytes (1.4 - 6.5 /CUMM) 5.1 Absolute Lymphocytes (1.2 - 3.4 /CUMM) 1.2 Absolute Monocytes (0.10 - 0.60 /CUMM) 0.6 Absolute Eosinophils (0.0 - 0.7 /CUMM) 0.2 Absolute Basophils (0.0 - 0.2 /CUMM) 0 Assessment/Plan Assessment/Plan 66-year-old female status post wound debridement and wound VAC application of the right midfoot, with stage II decubitus lesion of the right heel, with dry eschar underneath the left first metatarsal head. The patient was seen and evaluated at bedside The patient has had increasing leukocytosis over the past several days, but this is not clinically correlated with the continuing improvement of the right midfoot wound. We will follow-up the bone biopsy from 2 days ago to confirm any osteomyelitis, but there does not appear to be signs of acute infection in the foot, and other sources like her current UTI and left buttock decubitus lesion should be considered. Pending final infectious disease recommendations, the patient is clear to be discharged and transferred back to her [facility] or to a facility that can sustain a wound VAC for a period of at least 3 months. Her final wound care recommendations are as follows: 1 - for the right midfoot wound, wound VAC changes every Saturday and Saturday at 125 mmHg continuous pressure medium intensity 2- for the stage II decubitus lesion of the right heel Betadine paint and a dry dressing every Saturday and Saturday with 2 pillows underneath the cast for proper offloading and prophylaxis 3- for the eschar underneath the left first metatarsal head Betadine paint every other day If the patient is cleared for discharge by the primary team, she is to follow-up in the wound care center this coming Saturday and on a weekly basis thereafter until her wounds are resolved. Further prophylaxis will be considered given her comorbidities after that point. She is to remain nonweightbearing, especially in the right foot until further notice. This case has been discussed with the primary team, the infectious disease java consultant, and case management. I'm available for further discussion at [phone].
--- NOTE | 2017-04-25 13:08 | PN- Infect Dx ---
Subjective Subjective: No fever. Less confused. Review of Systems Comments: 12 points reviewed as noted, otherwise negative. Objective Last 24 Hrs of Vital Signs/I&O Vital Signs Date Time Temp Pulse Resp B/P B/P Pulse O2 O2 Flow FiO2 Mean Ox Delivery Rate 04/25 1042 144/74 04/25 0905 73 180/80 04/25 0640 99.1 73 20 180/80 93 Room Air 04/24 2223 98.2 80 20 150/72 96 Room Air 04/24 1452 98.2 80 20 158/72 97 Room Air Intake & Output 04/25 1600 04/25 0800 04/25 0000 Intake Total 300 250 Output Total 0 0 Balance 300 250 Intake, IV 60 10 Intake, Oral 240 240 Number 2 2 Bowel Movements Output, 0 0 Drainage Physical Exam Other Physical Findings: Afebrile. She is awake and alert, in no acute distress. Skin stasis dermatitis b/l LE's. HEENT AT/NC, moist oral mucosa. Neck is supple with no adenopathy. Lungs are clear. Heart regular rhythm with no murmur. Abdomen is obese, soft, nontender with positive bowel sounds; suprapubic area with marked induration. Back no CVA tenderness; perirectal ulcerations. 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 Neuro awake Results Last 24 Hours of Lab Results: Laboratory Tests 04/25 04/24 0630 1625 Chemistry Sodium (137 - 145 mmol/L) 144 Potassium (3.5 - 5.1 mmol/L) 3.3 L Chloride (98 - 107 mmol/L) 102 Carbon Dioxide (22 - 30 mmol/L) 28 Anion Gap (5 - 16) 14 BUN (7 - 17 mg/dL) 37 H Creatinine (0.5 - 1.0 mg/dL) 1.1 H Estimated GFR (>60 ml/min) 49 L BUN/Creatinine Ratio (7 - 25 %) 33.6 H Vitamin B12 (239 - 931 pg/mL) > 1000 H Hematology CBC w Diff NO MAN DIFF REQ NO MAN DIFF REQ WBC (4.8 - 10.8 /CUMM) 11.7 H 9.4 RBC (4.20 - 5.40 /CUMM) 3.47 L 3.56 L Hgb (12.0 - 16.0 G/DL) 9.4 L 9.5 L Hct (37 - 47 %) 28.5 L 29.3 L MCV (81.0 - 99.0 FL) 82.1 82.3 MCH (27.0 - 31.0 PG) 27.2 26.6 L MCHC (33.0 - 37.0 G/DL) 33.2 32.3 L RDW (11.5 - 14.5 %) 15.2 H 15.2 H Plt Count (130 - 400 /CUMM) 273 291 MPV (7.4 - 10.4 FL) 8.7 8.6 Gran % (42.2 - 75.2 %) 81.9 H 76.5 H Lymphocytes % (20.5 - 51.1 %) 11.6 L 14.0 L Monocytes % (1.7 - 9.3 %) 5.5 7.4 Eosinophils % (0 - 5 %) 0.9 1.7 Basophils % (0.0 - 2.0 %) 0.1 0.4 Absolute Granulocytes (1.4 - 6.5 /CUMM) 9.6 H 7.2 H Absolute Lymphocytes (1.2 - 3.4 /CUMM) 1.4 1.3 Absolute Monocytes (0.10 - 0.60 /CUMM) 0.6 0.7 H Absolute Eosinophils (0.0 - 0.7 /CUMM) 0.1 0.2 Absolute Basophils (0.0 - 0.2 /CUMM) 0 0 Last 24 Hours of Braulio Results: PEC #: [id number] LEO: 04/22/17 STATUS: COMP RECD: 04/22/[address]: Johan Bhatia MD SOURCE: URINE ROUT ENTR: 04/22/[address]: Jerome [facility]Z,[facility] Patient Has No Primary Care Nickolas Hernandez DPM ORDERED: URINE CULTURE Procedure Result > URINE CULTURE Final 04/24/17 Greater than 100,000 colonies per ml of: PROTEUS MIRABILIS 1. PROTEUS MIRABILIS RX AB ------ -- AMPICILLIN S CEFAZOLIN S AMOXICILLIN/CLAVULINIC ACID S AMPICILLIN/SULBACTAM S CIPROFLOXACIN R GENTAMICIN S NITROFURANTOIN R TRIMETHOPRIM/SULFAMETHOXAZOLE R Note: Infectious Diseases Society of [place] Guidelines state that asymptomatic bacteriuria is not associated with any increase in morbidity or mortality in most patients and therefore treatment is usually not indicated unless patients are less than five years old, or about to undergo urological procedures. Recent Imaging Studies: IMPRESSION: Nondiagnostic, transabdominal examination. DICTATED BY: Iker Vargas MD DATE/TIME DICTATED:04/24/171153 SHIRT TURNER:CORY DATE/TIME TRANSCRIBED:04/24/171153 Assessment/Plan ID Impression: 66-year-old woman with a history of dementia, diabetes and peripheral vascular disease, with a right foot plantar ulcer of unknown duration, recently begun on Vancomycin for a positive wound culture for MRSA, with no further details available, admitted on April 18 for debridement of the soft tissues of the right mid foot and right heel, which was performed on the day of admission, with no evidence for bone exposure. Evaluated for right foot OM; local R foot ulcer culture + Enterobacter/Proteus. She is felt by Podiatry to have a Charcot foot, which could mimic osteomyelitis on x-ray and MRI; therefore she would likely require a bone biopsy if the diagnosis of osteomyelitis is to be pursued. Afebrile with normal WBC count. Per team will forego MRI pending results of OR cultures and bone biopsy on 04/23. No OR bone cx from 04/23; bone bx results pnd. MSC R/O UTI; no UA/UC obtained previous day; mild leukocytosis today as well as low grade temp Postmenopausal vag bleeding/abd pain; round up ring hand eval as OP Suggestion: 1. F/U Dr. Hernandez in 2 weeks from discharge 2. CTX 1 gm daily x 7 d via PICC for presumed UTI; first dose received previous day.. 3. D/C PICC after completing 7 d iv abx course. 4. trend CBC, BMP as OP within 48 h from discharge.
[2017-04-25] MEDS ORDERED: CEFTRIAXONE1 G1 IV (13:29)
[2017-04-25] MEDS ORDERED: SANTYL30 GM TOP (13:29)
[2017-04-25] MEDS ORDERED: HEPARIN SO5000 UNIT3 SC (13:29)
--- NOTE | 2017-04-25 13:45 | Patient Discharge Instructions ---
Discharge Instructions General Discharge Information You were seen/treated for: Right foot wound infection Charcot foot UTI hypokalemia postmenopausal vaginal bleeding You had these procedures: Right foot wound debridement and bone biopsy Special Instructions: Take all medication as directed. Continue IV Ceftriaxone 1 g daily for 5 days, ending on 04/30/17. Remove picc line after completion. Will require DVT prophylaxis with subcutaneous heparin and KEANU stockings while nonweight bearing. Follow-up with the [place] wound care center on Saturday04/30/17. Follow-up with the [facility] at [place] as soon as possible for work up of vaginal bleeding. Check basic electrolyte panel on 04/29/17 to assess potassium level and the need for continued supplementation. Wound care recommendations as below: R foot wound VAC changes every Saturday and Saturday at 125 mmHg continuous pressure medium intensity For the stage II decubitus lesion of the right heel Betadine paint and a dry dressing every Saturday and Saturday with 2 pillows underneath the cast for proper offloading and prophylaxis for the eschar underneath the left first metatarsal head Betadine paint every other day Call your doctor or return to the ER if you should have chest pain, shortness of breath, or significant vaginal bleeding. Activity Activity Limited to: No weight bearing (until cleared by podiatry) Acute Coronary Syndrome Inclusion Criteria At DC or during hospital stay patient has or had the following: ACS DIAGNOSIS No Discharge Core Measures Meds if any: Prescribed or Continued at Discharge Meds if any: NOT Prescribed or Continued at Discharge Congestive Heart Failure Inclusion Criteria At DC or during hospital stay patient has or had the following: CHF DIAGNOSIS No Discharge Core Measures Meds if any: Prescribed or Continued at Discharge Meds if any: NOT Prescribed or Continued at Discharge Cerebrovascular accident Inclusion Criteria At DC or during hospital stay patient has or had the following: CVA/TIA Diagnosis No Discharge Core Measures Meds if any: Prescribed or Continued at Discharge Meds if any: NOT Prescribed or Continued at Discharge Venous thromboembolism Inclusion Criteria VTE Diagnosis No VTE Type NONE VTE Confirmed by (Test) NONE Discharge Core Measures - Per Current guidelines, there needs to be overlap - treatment for the first 5 days of Warfarin therapy. - If discharged on Warfarin prior to 5 days of - overlap therapy, the patient will need to be - assessed for post discharge needs including - *Post discharge parental anticoagulation - *Warfarin and/or parental anticoagulation education - *Follow up date to check INR post discharge At least 5 days overlap therapy as Inpatient No Meds if any: Prescribed or Continued at Discharge Note: Overlap Therapy is Warfarin and Anticoagulant Meds if any: NOT Prescribed or Continued at Discharge
--- NOTE | 2017-04-25 13:48 | Discharge Summary ---
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 Problem List 1. Right diabetic foot ulcer, Charcot's foot and possible osteomyelitis Patient is postop day #2 of repeat debridement and bone biopsy of right heel ulcer (1st debridement was on 04/18/17 and second debridement was 04/23/17). She remains afebrile with a normal WBC and she is currently being watched off of antibiotics per ID and podiatry recommendations. Elevated ESR could be due to her charcot foot which could mimic osteomyelitis on x-ray and MRI, so awaiting bione biopsy results to confirm or rule out osteomyelitis. Patient is cuureent non-weightbearing on the Rt foot pending further podiatry recommendations. Continue adequate pain management Follow-up OR pathology specimens. She will follow up in the [facility] with podiatry on Saturday04/30/17, and follow-up with Dr. Alexis Hernandez for continuing infectious disease care in 2 weeks. 2. New onset postmenopausal bleeding Patient passed a blood clot vaginally and a day later developed andria vaginal bleeding but this has tappered down to only scant bleeding. Her Hemoglobin has remained stable, she is anemic at /baseline. Gynecology consult was placed and old records from [place] reveal a history of vulvar malignancy that was treated with radiation therapy over 40yrs ago. There is information of a possible recent gynecology evaluation for a vulva malignacy but due to patient's dementia she is unable to remember where. Most recent biopsy records were negative for malignancy. She will need follow up with a clinical business manager as outpatient for further workup and will require close monitoring of her hemoglobin, she has been referred back to [facility] at [place], where she has received her previous care. Patient was unable to tolerate transvaginal US secondary to discomfort, a transabdominal examination was nondiagnostic. 3. UTI She has mild hypogastric discomfort with palpation on exam. Urine culture is growing proteus but she remains afebrile and has no WBC. She is on IV ceftriaxone 1gm daily x 7 days. PICC line is to be removed following her 4. DM Resume patient's home medications. 5. HTN Resume patient's home medications. 6. BHAVIN She was admitted witha creatinine of 2.3 which have improved to 1.1, her baseline as of April 2016 is 0.48. 7. Gluteal ulcer, chronic and present on admission Continue Santyl for wound care. 8. Hypokalemia Persistent hypokalemia despite multiple oral repletions. She will be discharged on oral pottassium 20mg daily. Please recheck potassium on 04/29/17. 9. Chronic medical problems including PVD, dementia Continue her home medications DVT prophylaxis was with subcutaneous heparin. She will require DVT prophylaxis until her weightbearing status is changed from nonweightbeing by podiatry. Allergies: Coded Allergies: No Known Allergies (08/02/16) PER PRE-OP ORDER SHEET. - 08/02/16 Pertinent Lab Results: Admission labs- 04/18/17 1441: Anion Gap 13, Estimated GFR 21 L, BUN/Creatinine Ratio 16.1, Glucose 174 H, Lactic Acid 0.8, Calcium 9.2, Total Bilirubin 0.3, AST 15, ALT 14, Alkaline Phosphatase 81, Total Protein 6.3, Albumin 3.2 L, Globulin 3.1, Albumin/ Globulin Ratio 1.0 L, CBC w Diff NO MAN DIFF REQ, RBC 3.30 L, MCV 83.0, MCH 27.0, MCHC 32.6 L, RDW 15.6 H, MPV 8.3, Gran % 78.5 H, Lymphocytes % 10.4 L, Monocytes % 7.3, Eosinophils % 2.4, Basophils % 1.4, Absolute Granulocytes 6.3, Absolute Lymphocytes 0.8 L, Absolute Monocytes 0.6, Absolute Eosinophils 0.2, Absolute Basophils 0.1, Random Vancomycin 24.8 04/18/17 1320: Urine Color YEL, Urine Clarity CLDY H, Urine pH 6.0, Ur Specific [place] 1.020, Urine Protein TRACE H, Urine Ketones NEG, Urine Nitrite POS H, Urine Bilirubin NEG, Urine Urobilinogen 0.2, Ur Leukocyte Esterase LARGE H, Ur Microscopic SEDIMENT EXAMINED, Urine RBC RARE, Urine WBC > 75 H, Urine Bacteria FEW H, Micro UA Comment BUDDING YEAST H, Urine Hemoglobin MOD H, Urine Glucose NEG Disposition Summary Disposition Principal Diagnosis: 1. Right diabetic foot ulcer, Charcot's foot and possible osteomyelitis Additional Diagnosis: 2. New onset postmenopausal bleeding 3. Urinary tract Infection 4. BHAVIN 5. Severe PVD 6. HTN 7. Type 2 Diabetes 8. Chronic gluteal ulcer 9. Hypokalemia 10. New onset diarrhea 11. Dementia Discharge Disposition: SNF Discharge Instructions General Discharge Information Code Status: Full Code Patient's Diet: Diabetic diet Patient's Activity: Non-weight bearing of Rt foot till cleared by podiatry Follow-Up Instructions/Appts: Take all medication as directed. Will require DVT prophylaxis with subcutaneous heparin while nonweight bearing. Follow-up with the [place] wound care center on Saturday04/30/17. Follow-up with the [facility] at [place] as soon as possible for work up of vaginal bleeding. Check basic electrolyte panel on 04/29/17 to assess potassium level and the need for supplementation Wound care recommendations as below: R foot wound VAC changes every Saturday and Saturday at 125 mmHg continuous pressure medium intensity For the stage II decubitus lesion of the right heel Betadine paint and a dry dressing every Saturday and Saturday with 2 pillows underneath the cast for proper offloading and prophylaxis for the eschar underneath the left first metatarsal head Betadine paint every other day Call your doctor or return to the ER if you should have chest pain, shortness of breath, or significant vaginal bleeding. Medications at Discharge Discharge Medications: Continue taking these medications: Aspirin (Ecotrin*) 81 MG TABLET.DR 1 Tablet ORAL DAILY Comments: Last Taken: 04/25/17 Time: 9AM Clopidogrel Bisulfate (Plavix) 75 MG TABLET 1 Tablet ORAL DAILY Comments: Last Taken: 04/25/17 Time: 9AM Loratadine (Claritin) 10 MG TABLET 1 Tablet ORAL DAILY Comments: NOT GIVEN IN HOSPITAL Fluticasone Propionate (Flonase Allergy Relief) 50 MCG/ACTUATION SPRAY.SUSP 1 [place] In the nose DAILY Comments: Last Taken: 04/25/17 Time: 9AM Atorvastatin Calcium (Lipitor) 80 MG TABLET 1 Tablet ORAL DAILY Comments: Last Taken: 04/24/17 Time: 1715PM Sitagliptin Phosphate (Januvia) 100 MG TABLET 1 Tablet ORAL DAILY Comments: NOT GIVEN IN HOSPITAL Cyanocobalamin (Vitamin B-12) 1,000 MCG TABLET 1 Tablet ORAL DAILY Comments: NOT GIVEN IN HOSPITAL Insulin Lispro (Humalog) 100 UNIT/ML VIAL 10 Unit Inject into fatty tissue THREE TIMES DAILY Comments: NOVOLOG GIVEN IN HOSPITAL Last Taken: 04/25/17 Time: 1213PM Hydrochlorothiazide (Hydrochlorothiazide) 25 MG TABLET 1 Tablet ORAL DAILY Comments: Last Taken: 04/25/17 Time: 9AM Lisinopril (Lisinopril) 40 MG TABLET 1 Tablet ORAL DAILY Comments: Last Taken: 04/25/17 Time: 9AM Cranberry Fruit (Cranberry) 450 MG TABLET 2 Tablet ORAL TWICE DAILY Comments: NOT GIVEN IN HOSPITAL Gabapentin (Gabapentin) 600 MG TABLET 1 Tablet ORAL THREE TIMES DAILY Comments: NOT GIVEN IN HOSPITAL Mirabegron (Myrbetriq) 50 MG TAB.ER.24H 1 Tablet ORAL DAILY Comments: NOT GIVEN IN HOSPITAL Pantoprazole Sodium (Pantoprazole Sodium) 20 MG TABLET.DR 1 Tablet ORAL DAILY Comments: PRILOSEC GIVEN IN HOSPITAL Last Taken: 04/25/17 Time: 615AM Saccharomyces Boulardii (Florastor) 250 MG CAPSULE 1 Capsule ORAL DAILY Comments: NOT GIVEN IN HOSPITAL Iron Carb,Gl/FA/B12/C/Docusate (Ferralet 90 Tablet) 90 MG-1 MG-12 MCG-120 MG-50 MG TABLET 1 Tablet ORAL DAILY Comments: NOT GIVEN IN HOSPITAL Psyllium Husk (Metamucil) 3.4 GRAM/5.4 GRAM POWDER 1 Packet ORAL DAILY Comments: NOT GIVEN IN HOSPITAL Memantine HCl (Namenda) 10 MG TABLET 1 Tablet ORAL Every night Comments: Last Taken: 04/24/17 Time: 2048PM Tramadol HCl (Tramadol HCl ER) 100 MG TAB.ER.24H 1 Tablet ORAL DAILY Comments: NOT GIVEN IN HOSPITAL Insulin-Lantus (Lantus) 100 UNIT/ML VIAL 43 Units Inject into fatty tissue AT BEDTIME Qty = 1 Comments: NOT GIVEN IN HOSPITAL Start taking the following new medications: Ceftriaxone Sodium (Ceftriaxone) 1 GRAM VIAL 1,000 Milligram INTRAVEN DAILY Qty = 5 No Refills Instructions: 1 gm daily IV for 5 days to complete a total of 7 day course Comments: Last Taken: 04/25/17 Time: 1345PM Heparin Sodium,Porcine (Heparin Sodium) 5,000 UNIT/ML VIAL 5,000 Unit Inject into fatty tissue EVERY 8 HOURS Qty = 1 No Refills Instructions: DVT prophylaxis while nonweightbearing Comments: Last Taken: 04/25/17 Time: 1345PM Collagenase Clostridium Hist. (Santyl) 250 UNIT/GRAM OINT...G. 0 Application On the skin DAILY Qty = 1 No Refills Instructions: APPLY daily to pressure ulcers Comments: Last Taken: 04/25/17 Time: 9AM Potassium Chloride (K-Tab ER) 20 MEQ TABLET.ER 1 Tablet ORAL DAILY Qty = 7 No Refills Comments: Reassess potassium level and the need to continue this supplement on Copies To: Davdi SUAREZ,Alexis Uribe DPM,Nickolas
[2017-04-25 14:23] VITALS: BP 144/74
[2017-04-25] MEDS ORDERED: K-TAB ER20 MEQ PO (14:37)
[2017-04-25 15:14] VITALS: BP 148/76
--- NOTE | 2017-04-25 16:08 | PN- OBGYN ---
Surgical Brief Attending Note Brief Attending Note: Reviewed care and mgmt with primary team History of vulvar cancer in the remote past with radiation. [place] [facility] [facility] [place]. No active vulvar lesion noted on my examination yesterday. Doubt fistula more likely bedbound position that led to stool appearing as was from vagina. [place] [facility] to continue Aquarist Care.
== END 2017-04-25 16:46 | DRG 952 ==
LOC: ERH 11:33 → ER-OR 12:12 → ERH 12:12 → PACUH 17:08 → 2NB 17:08 → ENRESERV 18:06 → CANRESERV 18:06 → ENRESERV 18:09 → ENTRNSPT 18:54 → EDTRNSPT 19:03 → EDTRNSPTSTS 19:03 → 2NB 19:13 → CMPTRNSPT 19:21 → 2NB 04-19 12:25 → ENTRNSPT 04-23 19:54 → EDTRNSPTSTS 04-23 20:06 → EDTRNSPT 04-23 20:06 → CMPTRNSPT 04-23 20:45 → ENPENDDIS 04-25 14:06 → 2NB 04-25 14:13
PROVIDERS: Dermatology; Internal Medicine; Physician Assistant; Student in an Organized Health Care Education/Training Program
PROC: 0JBQ0ZZ Excision of Right Foot Subcutaneous Tissue and Fascia, Open Approach (ICD-10-PCS; principal; 2017-04-18)
PROC: 0QBL0ZZ Excision of Right Tarsal, Open Approach (ICD-10-PCS; 2017-04-23)
DX: E11.610 Type 2 diabetes mellitus with diabetic neuropathic arthropathy (principal); E11.51 Type 2 diabetes mellitus with diabetic peripheral angiopathy without gangrene; E11.621 Type 2 diabetes mellitus with foot ulcer; Z79.4 Long term (current) use of insulin; L89.320 Pressure ulcer of left buttock, unstageable; N17.9 Acute kidney failure, unspecified; E11.22 Type 2 diabetes mellitus with diabetic chronic kidney disease; L03.115 Cellulitis of right lower limb; L03.116 Cellulitis of left lower limb; L97.413 Non-pressure chronic ulcer of right heel and midfoot with necrosis of muscle; I12.9 Hypertensive chronic kidney disease with stage 1 through stage 4 chronic kidney disease, or unspecified chronic kidney disease; N18.9 Chronic kidney disease, unspecified; I87.8 Other specified disorders of veins; N95.0 Postmenopausal bleeding; F03.90 Unspecified dementia, unspecified severity, without behavioral disturbance, psychotic disturbance, mood disturbance, and anxiety; F41.9 Anxiety disorder, unspecified; F32.9 Major depressive disorder, single episode, unspecified; R32 Unspecified urinary incontinence; Z89.421 Acquired absence of other right toe(s); Z95.828 Presence of other vascular implants and grafts; D64.9 Anemia, unspecified; I87.2 Venous insufficiency (chronic) (peripheral); Z85.44 Personal history of malignant neoplasm of other female genital organs; Z92.3 Personal history of irradiation; E87.6 Hypokalemia; N39.0 Urinary tract infection, site not specified; B96.4 Proteus (mirabilis) (morganii) as the cause of diseases classified elsewhere
CPT/HCPCS: 2NBP; 84133; 84300; 87070; 87075; 36415; 71046; 73060-RT; 73630-RT; 81001; 82436; 82570; 87040; 87086; 87804; 87804-59; 88304; 88307; 93005; 93010; 96374; J0131; J0696; J1170; J1644; J1815; J1885; J2001; J3010; J3490; J7042; J7120